=== PATIENT | female | born 1955 | race Two or more races ===

== ENCOUNTER 2021-10-18 12:10 | Outpatient (REF) | payer SELFPAY ==
[2021-10-18 12:46] LABS: MANUAL DIFF FLAG NO
[2021-10-18 13:02] LABS: Basophils Absolute Auto 0.1 X10*3/uL (0.0-0.2); Basophils Percent Auto 0.4 % (0-2); Eosinophils Absolute Auto 0.1 X10*3/uL (0.0-0.4); Eosinophils Percent Auto 0.4 % (0-4); Hematocrit 41.1 % (37.0-47.0); Hemoglobin 13.7 g/dl (12.0-16.0); Imm Gran Abs Auto 0.05 X10*3/uL (0.00-0.03); Imm Gran Pct Auto 0.4 % (0.0-0.4); Lymphocytes Absolute Auto 1.4 X10*3/uL (1.2-4.9); Lymphocytes Percent Auto 10.5 % (20-40); Mean Corpuscular HGB Conc 33.3 g/dl (31.0-35.0); Mean Corpuscular Hemoglobin 29.8 pg (27.0-33.0); Mean Corpuscular Volume 89.5 fL (80.0-98.0); Mean Platelet Volume 8.8 fL (9.4-12.3); Monocytes Absolute Auto 1.3 X10*3/uL (0.1-1.2); Monocytes Percent Auto 9.6 % (2-11); Neutrophils Absolute Auto 10.7 x10*3/uL (2.0-8.3); Neutrophils Percent Auto 78.7 % (45-73); Platelet Count 386 X10*3/uL (160-400); Red Blood Count 4.59 X10*6/uL (4.20-5.50); Red Cell Distribution Width 13.8 % (11.0-16.0); White Blood Count 13.6 X10*3/uL (4.8-10.8)
[2021-10-18 13:29] LABS: C Reactive Protein 10.43 mg/dL (< or = 0.50)
[2021-10-18 13:49] LABS: Erythrocyte Sedimentation Rate 32 MM/HR (0-20)
== END 2021-10-18 12:11 | disposition home or self-care (01) ==
LOC: HO.LAB 12:10
PROVIDERS: Visit Provider Ophthalmology
DX: M31.6 Other giant cell arteritis (principal); H46.9 Unspecified optic neuritis
CPT/HCPCS: 36415; 85025; 85652; 86140

== ENCOUNTER 2021-10-20 14:42 | Emergency (ER) | payer OTHER, SELFPAY ==
--- NOTE | ~2021-10-20 | XR_ITS ---
EXAMINATION: XR CHEST CLINICAL INFORMATION: Cough COMPARISON: None TECHNIQUE: Frontal view of the chest was obtained. FINDINGS: The lungs are clear. No airspace consolidation, pleural effusion, or pneumothorax. The cardiomediastinal silhouette is within normal limits. No acute osseous injury. XR/XR chest 1V IMPRESSION: No acute pulmonary process.
[2021-10-20 15:15] VITALS: BP 116/69; PULSE 98; RESP 16; TEMP 36.6; O2SAT 98; BMI 23.2
[2021-10-20 22:18] VITALS: BP 114/75; PULSE 85; RESP 18; TEMP 36.5; O2SAT 100
--- NOTE | 2021-10-20 22:20 | ED.GENADULT ---
HPI - General Adult General Chief complaint: Nausea/Vomiting/Diarrhea Stated complaint: fever body aches vomiting headache diarrhea Time Seen by Provider: 10/20/21 22:20 Source: patient Mode of arrival: ambulatory Limitations: no limitations History of Present Illness HPI narrative: pt with History of hypothyroidism chronic back pain with recent history of COVID 2 weeks ago already vaccinated against COVID. Patient was sick for 4 5 days to weeks ago with COVID improved now again for last 5 days patient has been having dry cough body aches low-grade fever and chills nauseated diarrhea other family member also sick at the same time. No shortness of breath no urinary complaints unable to drink fluids or eat feels tired Related Data Previous Rx's Medication Instructions Recorded benzonatate 200 mg capsule 200 mg PO TID PRN cough #20 caps 10/20/21 cefuroxime axetil 500 mg tablet 500 mg PO BID 7 days #14 tabs 10/20/21 ondansetron 4 mg disintegrating 4 mg PO Q6-8H PRN nausea and 10/20/21 tablet vomiting #7 tabs Allergies Allergy/AdvReac Type Severity Reaction Status Date / Time morphine AdvReac Itching Verified 10/20/21 23:31 Review of Systems Review of Systems: Yes all other systems are reviewed and are negative PMFSH Social History Social History Advance Directives: No Advance Directives Information Provided: No Physical Exam ED Vital Signs: Vital Signs - 24 hr 10/20/21 15:15 10/20/21 22:18 Temperature 97.8 F 97.7 F Pulse Rate 98 85 Respiratory Rate 16 18 Blood Pressure 116/69 114/75 Pulse Oximetry 98 100 Oxygen Delivery Method Room Air Room Air BMI result Body Mass Index 23.2 Appearance: Alert. Oriented X3. Looks sick tired Eyes: No pallor or icterus ENT: Pharynx normal. Oral Mucosa moist Neck: Normal inspection. Neck supple. CVS: Normal heart rate and rhythm. Pulses normal. Respiratory: No respiratory distress. Equal air entry bilateral, no wheezing/rales/rhonchi Abdomen: Soft and nontender. Bowel sounds are present, no mass palpable, no CVA tenderness Skin: Skin warm and dry. Normal skin color. Normal skin turgor. Extremities: No lower extremity edema. No calf tenderness Neuro: Oriented X 3. No motor deficit. Medical Decision Making MDM Narrative Medical decision making narrative: Patient with symptoms of bronchitis COVID negative chest x-ray lab stable will discharge patient home on Ceftin and Tessalon Perles Lab Data Lab results reviewed: Yes I reviewed the patient's lab results. Result diagrams: 10/20/21 22:52 10/20/21 22:52 Labs: Lab Results 10/20/21 10/20/21 10/20/21 Range/Units 22:45 22:52 22:52 WBC 8.6 (4.8-10.8) X10*3/uL RBC 4.50 (4.20-5.50) X10*6/uL Hgb 13.2 (12.0-16.0) g/dl Hct 39.3 (37.0-47.0) % MCV 87.3 (80.0-98.0) fL MCH 29.3 (27.0-33.0) pg MCHC 33.6 (31.0-35.0) g/dl RDW 13.4 (11.0-16.0) % Plt Count 346 (160-400) X10*3/uL MPV 8.8 L (9.4-12.3) fL Immature Gran % (Auto) 0.6 H (0.0-0.4) % Neut % (Auto) 90.3 H (45-73) % Lymph % (Auto) 4.9 L (20-40) % [place] % (Auto) 4.1 (2-11) % Eos % (Auto) 0.0 (0-4) % Baso % (Auto) 0.1 (0-2) % Lymph # (Auto) 0.4 L (1.2-4.9) X10*3/uL [place] # (Auto) 0.4 (0.1-1.2) X10*3/uL Eos # (Auto) 0.0 (0.0-0.4) X10*3/uL Baso # (Auto) 0.0 (0.0-0.2) X10*3/uL Abs Immat Gran (auto) 0.05 H (0.00-0.03) X10*3/uL Absolute Neuts (auto) 7.8 (2.0-8.3) x10*3/uL Absolute Nucleated RBC 0.000 (0.0-0.012) X10*3/uL Nucleated RBC % (auto) 0.0 (0.0-0.2) /100WBC Smear Tech's Comments VERIFIED Sodium 137 (135-145) mmol/L Potassium 3.7 (3.3-5.1) mmol/L Chloride 99 (96-108) mmol/L Carbon Dioxide 23 (22-29) mmol/L Anion Gap 19 (12-20) BUN 15 (9-16) mg/dL Creatinine 0.78 (0.5-1.4) mg/dL Estim Creat Clear Calc 58.7 Estimated GFR > 60 Random Glucose 234 H (60-115) mg/dL Calcium 9.1 (8.4-10.2) mg/dL Total Bilirubin 0.6 (0.0-1.0) mg/dL AST 21 (5-31) U/L ALT 17 (0-31) U/L Alkaline Phosphatase 85 (39-117) U/L Total Protein 8.2 H (6.5-8.0) g/dL Albumin 4.4 (3.5-5.0) g/dL COVID-19 ([facility]) Negative (Negative) COVID-19 Clin Com See Note Discharge Plan Discharge Clinical Impression: Acute bronchitis Patient Disposition: Home, Self-Care Instructions: Acute Bronchitis (ED) Additional Instructions: Drink plenty of fluids Take antibiotic as prescribed Cough drops as prescribed Take Medicine for nausea as prescribed Follow with PCP if not better Your COVID test is negative Prescriptions: New cefuroxime axetil 500 mg tablet 500 mg PO BID 7 Days Qty: 14 0RF benzonatate 200 mg capsule 200 mg PO TID PRN (Reason: cough) Qty: 20 0RF ondansetron 4 mg tablet,disintegrating 4 mg PO Q6-8H PRN (Reason: nausea and vomiting) Qty: 7 0RF Interventions: ED Discharge Assessment Last Done: 10/21/21 00:28 Discharge Date/Time: 10/21/21 00:41
[2021-10-20 23:04] LABS: COVID-19 Test Negative (Negative); IDNOW Serial# 16C4AD1C
[2021-10-20 23:07] LABS: Basophils Percent Auto 0.1 % (0-2); Hematocrit 39.3 % (37.0-47.0); Hemoglobin 13.2 g/dl (12.0-16.0); Imm Gran Abs Auto 0.05 X10*3/uL (0.00-0.03); Imm Gran Pct Auto 0.6 % (0.0-0.4); Lymphocytes Absolute Auto 0.4 X10*3/uL (1.2-4.9); Lymphocytes Percent Auto 4.9 % (20-40); MANUAL DIFF FLAG SCAN; Mean Corpuscular HGB Conc 33.6 g/dl (31.0-35.0); Mean Corpuscular Hemoglobin 29.3 pg (27.0-33.0); Mean Corpuscular Volume 87.3 fL (80.0-98.0); Mean Platelet Volume 8.8 fL (9.4-12.3); Monocytes Absolute Auto 0.4 X10*3/uL (0.1-1.2); Monocytes Percent Auto 4.1 % (2-11); Neutrophils Absolute Auto 7.8 x10*3/uL (2.0-8.3); Neutrophils Percent Auto 90.3 % (45-73); Platelet Count 346 X10*3/uL (160-400); Red Cell Distribution Width 13.4 % (11.0-16.0); SCAN SMEAR FLAG 1; White Blood Count 8.6 X10*3/uL (4.8-10.8)
[2021-10-20 23:23] LABS: Alanine Aminotransferase 17 U/L (0-31); Albumin Level 4.4 g/dL (3.5-5.0); Alkaline Phosphatase 85 U/L (39-117); Anion Gap 19 (12-20); Aspartate Amino Transferase 21 U/L (5-31); Bilirubin Total 0.6 mg/dL (0.0-1.0); Blood Urea Nitrogen 15 mg/dL (9-16); Calcium 9.1 mg/dL (8.4-10.2); Carbon Dioxide 23 mmol/L (22-29); Chloride 99 mmol/L (96-108); Creatinine Clr Calc Pharmacy 58.7; Estimated Glomerular Filt Rate > 60; Glucose Random 234 mg/dL (60-115); Potassium 3.7 mmol/L (3.3-5.1); Sodium 137 mmol/L (135-145); Total Protein 8.2 g/dL (6.5-8.0)
[2021-10-20 23:24] LABS: SLIDE REVIEW VERIFIED
[2021-10-20] MEDS: 0.9 % Sodium Chloride 1,000 ML 999 ML IV (23:26)
[2021-10-20] MEDS: ondansetron HCL 4 MG/2 ML VIAL IVPUSH (23:26)
[2021-10-21] MEDS: Benzonatate 100 MG CAPSULE 200 MG PO (00:26)
== END 2021-10-21 00:41 | disposition home or self-care (01) ==
PROVIDERS: Emergency Provider Internal Medicine
DX: J20.9 Acute bronchitis, unspecified (principal); Z20.822 Contact with and (suspected) exposure to COVID-19
CPT/HCPCS: 71045; 80053; 85025; 87635; 96361; 96374; 99284; J2405

== ENCOUNTER 2021-11-08 10:31 | Emergency (ER) | payer OTHER, SELFPAY ==
--- NOTE | ~2021-11-08 | XR_ITS ---
EXAMINATION: XR CHEST CLINICAL INFORMATION: Shortness of breath COMPARISON: Chest radiograph 10/20/2021 TECHNIQUE: Frontal view of the chest was obtained. FINDINGS: No lobar or segmental airspace consolidation, vascular congestion, or effusion. The costophrenic sulci are clear. The heart is normal in size. The hilar and mediastinal contours are normal. No pneumothorax or pleural reaction. No acute bony abnormality. XR/XR chest 1V IMPRESSION: No acute intrathoracic disease.
--- NOTE | ~2021-11-08 | CT_ITS ---
EXAMINATION: CT ANGIOGRAM OF THE CHEST WITH AND WITHOUT CONTRAST (CT PULMONARY ANGIOGRAM FOR PE) CLINICAL INFORMATION: Reason for Exam Pleuritic pain, elevated D-dimer rule out PE COMPARISON: Previous chest x-ray from earlier the same day TECHNIQUE: Prior to contrast administration, noncontrast localization images were obtained. Subsequently, multidetector volumetric imaging was performed from the thoracic inlet to below the diaphragms following the administration of 65 mL Omnipaque 350 intravenous contrast. No contrast reaction reported Sagittal, coronal, and MIP oblique sagittal reformatted images were obtained on the CT workstation, uploaded to PACS, and reviewed. This CT examination was performed using dose optimization techniques as appropriate, variously including the following: *Automated exposure control *Adjustment of mA and/or kV according to patient size (this includes techniques or standardized protocols for targeted exams where dose is matched to indication/reason for exam; i.e. extremities or head) *Use of iterative reconstruction technique Total exam dose-length product 198 mGy-cm FINDINGS: QUALITY OF STUDY/CONTRAST BOLUS: Satisfactory. PULMONARY ARTERIES: No central or segmental pulmonary emboli. THORACIC AORTA: No aneurysm or dissection. LUNG: No focal consolidation, nodules or masses. PLEURA: No pleural effusion or pneumothorax. MEDIASTINUM: Normal heart size. No pericardial effusion. No hilar or mediastinal lymphadenopathy. No evidence of septal bowing or right heart strain. Replaced right subclavian artery. Normal caliber thoracic aorta. CHEST WALL/AXILLA: No axillary or internal mammary lymphadenopathy. OSSEOUS STRUCTURES: No acute or suspicious osseous abnormality. There are degenerative changes of the spine. UPPER ABDOMEN: Unremarkable. No reflux of contrast into the hepatic veins to suggest elevated right heart pressures. CT/CT angio chest PE protocol IMPRESSION: No evidence of pulmonary embolism. VTE: negative
[2021-11-08 11:42] VITALS: BP 126/76; PULSE 104; RESP 18; TEMP 36.8; O2SAT 100; BMI 25.7
[2021-11-08] MEDS: Acetaminophen 325 MG TABLET 650 MG PO (11:48)
--- NOTE | 2021-11-08 13:30 | ED_ITS ---
HPI - General Adult General Chief complaint: General Medical Stated complaint: rib pain in both sides Time Seen by Provider: 11/08/21 13:30 History of Present Illness HPI narrative: Patient complains in both ribs worse with deep breath it is both sides along the ribcage no central pain, pain is continuous, not related to exertion there is no diaphoresis no shortness of breath no vomiting not related to exertion, no palpitations no fainting no feeling faint She denies any leg pain no calf pain She did recently have a COVID infection but is no longer coughing no longer having any fever, is eating and drinking normally no vomiting Related Data Previous Rx's Medication Instructions Recorded benzonatate 200 mg capsule 200 mg PO TID PRN cough #20 caps 10/20/21 cefuroxime axetil 500 mg tablet 500 mg PO BID 7 days #14 tabs 10/20/21 ondansetron 4 mg disintegrating 4 mg PO Q6-8H PRN nausea and 10/20/21 tablet vomiting #7 tabs acetaminophen 500 mg tablet 1,000 mg PO QID PRN pain #30 tabs 11/08/21 ibuprofen 600 mg tablet 600 mg PO Q6H PRN pain #20 tabs 11/08/21 oxycodone 5 mg tablet 5 mg PO Q6H PRN pain #14 tabs 11/08/21 Allergies Allergy/AdvReac Type Severity Reaction Status Date / Time morphine AdvReac Itching Verified 10/20/21 23:31 Review of Systems Review of Systems: Negatives no fever no chills no dizziness weakness no fainting no feeling faint no headache no neck pain no difficulty breathing or swallowing no exertional symptoms no palpitations no sweating no relation to exertion no abdominal pain no nausea or vomiting no leg pain no leg swelling no numbness no weakness no rash Yes all other systems are reviewed and are negative PMFSH Past Medical History Source: nursing notes reviewed Social History Social History Advance Directives: No Advance Directives Information Provided: No Physical Exam ED Vital Signs: Vital Signs - 24 hr 11/08/21 11:42 11/08/21 14:40 Temperature 98.3 F Pulse Rate 104 H 79 Respiratory Rate 18 15 Blood Pressure 126/76 101/54 L Pulse Oximetry 100 96 Oxygen Delivery Method Room Air Room Air BMI result Body Mass Index 25.7 General appearance is no acute distress Eyes anicteric no pallor Number pharynx mucous membranes are moist no redness swelling or exudate no impa irment of breathing or swallowing, voice is normal Neck is supple Chest is clear to auscultation bilateral full symmetric equal breath sounds Pain in the chest is easily reproduced with movement and deep breath Heart no murmur Abdomen soft nontender Extremities full range of motion x4, no edema no calf tenderness or swelling Skin no rash Neuro no focal motor sensory deficits, gait and balance are normal and expression and comprehension are normal Course Course Course Narrative: EKG was a normal sinus rhythm with a rate of 78, intervals were normal, QTC normal, no acute ischemic change, no acute ST changes At 1 troponin was done for symptoms that have been going on for several days and it was negative D-dimer was positive so CTA was done CTA did not reveal any pneumonia no blood clot no PE A white count of 17 was noted but in the absence of fever, no evidence of sepsis no complaint except the rib pain this is very unlikely to be sepsis No other acute lab abnormality Patient remains stable and improved after pain medication and departed the ER comfortable with no shortness of breath and feeling somewhat improved Medical Decision Making Lab Data Lab results reviewed: Yes I reviewed the patient's lab results. Result diagrams: 11/08/21 14:07 11/08/21 14:07 Labs: Lab Results 11/08/21 11/08/21 11/08/21 Range/Units 14:07 14:07 14:07 WBC 17.7 H (4.8-10.8) X10*3/uL RBC 3.94 L (4.20-5.50) X10*6/uL Hgb 11.6 L (12.0-16.0) g/dl Hct 34.6 L (37.0-47.0) % MCV 87.8 (80.0-98.0) fL MCH 29.4 (27.0-33.0) pg MCHC 33.5 (31.0-35.0) g/dl RDW 14.6 (11.0-16.0) % Plt Count 389 (160-400) X10*3/uL MPV 7.8 L (9.4-12.3) fL Immature Gran % (Auto) 1.0 H (0.0-0.4) % Neut % (Auto) 93.3 H (45-73) % Lymph % (Auto) 2.4 L (20-40) % [place] % (Auto) 3.2 (2-11) % Eos % (Auto) 0.0 (0-4) % Baso % (Auto) 0.1 (0-2) % Lymph # (Auto) 0.4 L (1.2-4.9) X10*3/uL [place] # (Auto) 0.6 (0.1-1.2) X10*3/uL Eos # (Auto) 0.0 (0.0-0.4) X10*3/uL Baso # (Auto) 0.0 (0.0-0.2) X10*3/uL Abs Immat Gran (auto) 0.17 H (0.00-0.03) X10*3/uL Absolute Neuts (auto) 16.5 H (2.0-8.3) x10*3/uL Absolute Nucleated RBC 0.000 (0.0-0.012) X10*3/uL Nucleated RBC % (auto) 0.0 (0.0-0.2) /100WBC Smear Tech's Comments VERIFIED PT 10.4 (10.0-13.1) SEC INR 0.9 (0.9-1.1) D-Dimer High Sensitivty 617 NG/ML Sodium 139 (135-145) mmol/L Potassium 4.0 (3.3-5.1) mmol/L Chloride 101 (96-108) mmol/L Carbon Dioxide 28 (22-29) mmol/L Anion Gap 14 (12-20) BUN 22 H (9-16) mg/dL Creatinine 0.71 (0.5-1.4) mg/dL Estim Creat Clear Calc 68.4 Estimated GFR > 60 Random Glucose 170 H (60-115) mg/dL Calcium 8.8 (8.4-10.2) mg/dL Troponin I High Sens (<3.5-17.0) ng/L COVID-19 ([facility]) (Negative) COVID-19 Clin Com 11/08/21 11/08/21 Range/Units 14:07 14:40 WBC (4.8-10.8) X10*3/uL RBC (4.20-5.50) X10*6/uL Hgb (12.0-16.0) g/dl Hct (37.0-47.0) % MCV (80.0-98.0) fL MCH (27.0-33.0) pg MCHC (31.0-35.0) g/dl RDW (11.0-16.0) % Plt Count (160-400) X10*3/uL MPV (9.4-12.3) fL Immature Gran % (Auto) (0.0-0.4) % Neut % (Auto) (45-73) % Lymph % (Auto) (20-40) % [place] % (Auto) (2-11) % Eos % (Auto) (0-4) % Baso % (Auto) (0-2) % Lymph # (Auto) (1.2-4.9) X10*3/uL [place] # (Auto) (0.1-1.2) X10*3/uL Eos # (Auto) (0.0-0.4) X10*3/uL Baso # (Auto) (0.0-0.2) X10*3/uL Abs Immat Gran (auto) (0.00-0.03) X10*3/uL Absolute Neuts (auto) (2.0-8.3) x10*3/uL Absolute Nucleated RBC (0.0-0.012) X10*3/uL Nucleated RBC % (auto) (0.0-0.2) /100WBC Smear Tech's Comments PT (10.0-13.1) SEC INR (0.9-1.1) D-Dimer High Sensitivty NG/ML Sodium (135-145) mmol/L Potassium (3.3-5.1) mmol/L Chloride (96-108) mmol/L Carbon Dioxide (22-29) mmol/L Anion Gap (12-20) BUN (9-16) mg/dL Creatinine (0.5-1.4) mg/dL Estim Creat Clear Calc Estimated GFR Random Glucose (60-115) mg/dL Calcium (8.4-10.2) mg/dL Troponin I High Sens 8.2 (<3.5-17.0) ng/L COVID-19 ([facility]) Negative (Negative) COVID-19 Clin Com See Note Discharge Plan Discharge Clinical Impression: Costochondritis Patient Disposition: Home, Self-Care Additional Instructions: Our workup today did not reveal any dangerous sign for your pain EKG and labs were okay CT scan to rule out blood clot or pneumonia not seen on x-ray was normal no sign of any dangerous condition This is likely inflammation of cartilage in her ribs so we are using anti-inflammatory ibuprofen If pain is severe you can use oxycodone Follow with your doctor if pain continues Return to ER any time for any worse or change pain, difficulty breathing, any worse condition or any concerns Prescriptions: New acetaminophen 500 mg tablet 1,000 mg PO QID PRN (Reason: pain) Qty: 30 0RF oxycodone 5 mg tablet 5 mg PO Q6H PRN (Reason: pain) Qty: 14 0RF Rx Instructions: Partial Fill upon patient request. ibuprofen 600 mg tablet 600 mg PO Q6H PRN (Reason: pain) Qty: 20 0RF No Action cefuroxime axetil 500 mg tablet 500 mg PO BID 7 Days Qty: 14 0RF benzonatate 200 mg capsule 200 mg PO TID PRN (Reason: cough) Qty: 20 0RF ondansetron 4 mg tablet,disintegrating 4 mg PO Q6-8H PRN (Reason: nausea and vomiting) Qty: 7 0RF
--- NOTE | 2021-11-08 13:47 | ECG_ITS ---
Test Reason : pain Blood Pressure : / mmHG Vent. Rate : 078 BPM Atrial Rate : 078 BPM P-R Int : 164 ms QRS Dur : 088 ms QT Int : 358 ms P-R-T Axes : 067 012 031 degrees QTc Int : 408 ms Normal sinus rhythm with sinus arrhythmia Normal ECG No previous ECGs available Referred By: Cb Wilkerson Electronically Signed By:BRUNA SALDIVAR
[2021-11-08 14:15] LABS: Basophils Percent Auto 0.1 % (0-2); Hematocrit 34.6 % (37.0-47.0); Hemoglobin 11.6 g/dl (12.0-16.0); Imm Gran Abs Auto 0.17 X10*3/uL (0.00-0.03); Lymphocytes Absolute Auto 0.4 X10*3/uL (1.2-4.9); Lymphocytes Percent Auto 2.4 % (20-40); MANUAL DIFF FLAG SCAN; Mean Corpuscular HGB Conc 33.5 g/dl (31.0-35.0); Mean Corpuscular Hemoglobin 29.4 pg (27.0-33.0); Mean Corpuscular Volume 87.8 fL (80.0-98.0); Mean Platelet Volume 7.8 fL (9.4-12.3); Monocytes Absolute Auto 0.6 X10*3/uL (0.1-1.2); Monocytes Percent Auto 3.2 % (2-11); Neutrophils Absolute Auto 16.5 x10*3/uL (2.0-8.3); Neutrophils Percent Auto 93.3 % (45-73); Platelet Count 389 X10*3/uL (160-400); Red Blood Count 3.94 X10*6/uL (4.20-5.50); Red Cell Distribution Width 14.6 % (11.0-16.0); SCAN SMEAR FLAG 1; White Blood Count 17.7 X10*3/uL (4.8-10.8)
[2021-11-08 14:18] LABS: INTERNATIONAL NORM RATIO 0.9 (0.9-1.1); Prothrombin Time 10.4 SEC (10.0-13.1)
[2021-11-08 14:20] LABS: D Dimer High Sensitivity 617 NG/ML
[2021-11-08 14:32] LABS: Anion Gap 14 (12-20); Blood Urea Nitrogen 22 mg/dL (9-16); Calcium 8.8 mg/dL (8.4-10.2); Carbon Dioxide 28 mmol/L (22-29); Chloride 101 mmol/L (96-108); Creatinine Clr Calc Pharmacy 68.4; Estimated Glomerular Filt Rate > 60; Glucose Random 170 mg/dL (60-115); Sodium 139 mmol/L (135-145)
[2021-11-08 14:35] LABS: Troponin-I High Sensitivity 8.2 ng/L (<3.5-17.0)
[2021-11-08 14:39] LABS: SLIDE REVIEW VERIFIED
[2021-11-08 14:40] VITALS: BP 101/54; PULSE 79; RESP 15; O2SAT 96
[2021-11-08 15:15] LABS: COVID-19 Test Negative (Negative); IDNOW Serial# 16C4AD1C
[2021-11-08] MEDS: iohexoL 350 MG/ML 100 ML INFUS..BTL IV (15:41)
[2021-11-08] MEDS: Ibuprofen 600 MG TABLET PO (17:10)
[2021-11-08] MEDS: oxyCODONE HCl Immed Release 5 MG TABLET PO (17:10)
== END 2021-11-08 17:18 | disposition home or self-care (01) ==
PROVIDERS: Physician Assistant Medical; Emergency Provider Emergency Medicine Emergency Medical Services
DX: M94.0 Chondrocostal junction syndrome [Tietze] (principal); Z20.822 Contact with and (suspected) exposure to COVID-19
CPT/HCPCS: 36415; 71045; 71275; 80048; 84484; 85025; 85379; 85610; 87635; 93005; 99284; Q9967

== ENCOUNTER 2021-11-12 14:49 | Emergency (ER) | payer OTHER, SELFPAY ==
--- NOTE | ~2021-11-12 | CT_ITS ---
EXAMINATION: CT ABDOMEN AND PELVIS WITH CONTRAST CLINICAL INFORMATION: Epigastric pain, vomiting. COMPARISON: None TECHNIQUE: Multidetector volumetric images were obtained from the superior aspect of the liver through the pubic symphysis following administration 85 mL of Omnipaque 350 intravenous contrast. Sagittal and coronal reformatted images were obtained on the technologist's workstation. Oral contrast: No This CT examination was performed using dose optimization techniques as appropriate, variously including the following: *Automated exposure control *Adjustment of mA and/or kV according to patient size (this includes techniques or standardized protocols for targeted exams where dose is matched to indication/reason for exam; i.e. extremities or head) *Use of iterative reconstruction technique DLP: 477 mGy-cm FINDINGS: LUNG BASES: There is dependent bibasilar atelectasis. The heart size is normal. LIVER, GALLBLADDER, AND BILIARY TREE: The liver is normal in size, shape, and attenuation. No focal hepatic lesion or biliary ductal dilatation is present. The gallbladder is unremarkable with no evidence of radiopaque gallstones, gallbladder wall thickening, or obvious pericholecystic inflammatory changes. PANCREAS: Unremarkable. SPLEEN: Unremarkable. ADRENAL GLANDS: Unremarkable. KIDNEYS AND URETERS: The kidneys are normal in size, shape, and attenuation. No hydronephrosis, hydroureter, or calculi seen. No perinephric stranding. With a hypodense 1.1 cm lesion lower pole left kidney and midpole right kidney probable cyst. BLADDER: Unremarkable. GASTROINTESTINAL TRACT: There is moderate amount of stool in the right colon with stool and gas in the rest the colon. The small bowel loops are normal caliber. Appendix is not visualized. The stomach is nondistended and appears unremarkable. No free air or free fluid seen. ABDOMINAL WALL: No significant hernia is appreciated. LYMPH NODES: Normal. VASCULAR: Unremarkable. PELVIC VISCERA: The uterus is anteverted with small calcified fibroid in the fundus. No free fluid. No abnormal pelvic or inguinal lymph nodes. OSSEOUS STRUCTURES: There are bilateral pedicular screws L4, L5 and S1 vertebra with intervening L4-L5 and L5/S1 disc prosthesis for fusion. Rest the visualized lumbosacral spine appears unremarkable. CT/CT abdomen pelvis w IV con IMPRESSION: Moderate constipation without obstruction. Likely bilateral renal cysts without radiopaque renal calculi or hydronephrosis. Lower lumbar spine fusion. Fleischner guidelines were followed.
--- NOTE | ~2021-11-12 | US_ITS ---
EXAMINATION: US ABDOMEN LIMITED CLINICAL INFORMATION: Right upper quadrant pain. COMPARISON: No pertinent priors. TECHNIQUE: Real-time imaging of the right upper quadrant abdominal viscera. FINDINGS: PANCREAS: Normal. LIVER: Normal. The liver is normal in size. The liver contour is normal. Parenchymal echogenicity is normal. No focal hepatic lesion. There is no intrahepatic biliary duct dilatation seen. GALLBLADDER: Normal. The gallbladder is physiologically distended without evidence of stones, sludge, polyps, wall thickening or pericholecystic fluid. COMMON BILE DUCT: Borderline dilated measuring up to 0.7 cm. FREE FLUID: None. US/US abdomen limited IMPRESSION: Borderline dilatation of the common bile duct. If choledocholithiasis is suspected, correlation with MRCP could be obtained. Normal sonographic appearance of the gallbladder and liver.
[2021-11-12 15:17] VITALS: BP 148/63; PULSE 70; RESP 20; TEMP 37.2; O2SAT 98; BMI 24.3
[2021-11-12 18:35] LABS: MANUAL DIFF FLAG NO
[2021-11-12 18:40] LABS: Basophils Percent Auto 0.2 % (0-2); Eosinophils Percent Auto 0.1 % (0-4); Hematocrit 36.6 % (37.0-47.0); Hemoglobin 12.1 g/dl (12.0-16.0); Imm Gran Abs Auto 0.17 X10*3/uL (0.00-0.03); Imm Gran Pct Auto 0.9 % (0.0-0.4); Lymphocytes Absolute Auto 0.8 X10*3/uL (1.2-4.9); Mean Corpuscular HGB Conc 33.1 g/dl (31.0-35.0); Mean Corpuscular Hemoglobin 28.9 pg (27.0-33.0); Mean Corpuscular Volume 87.4 fL (80.0-98.0); Mean Platelet Volume 7.9 fL (9.4-12.3); Monocytes Percent Auto 5.3 % (2-11); Neutrophils Percent Auto 89.5 % (45-73); Platelet Count 405 X10*3/uL (160-400); Red Blood Count 4.19 X10*6/uL (4.20-5.50); Red Cell Distribution Width 14.1 % (11.0-16.0)
[2021-11-12 18:53] LABS: Amylase 60 U/L (28-100); Ethanol < 10 mg/dL
[2021-11-12 18:56] LABS: Alanine Aminotransferase 27 U/L (0-31); Alkaline Phosphatase 106 U/L (39-117); Anion Gap 19 (12-20); Aspartate Amino Transferase 13 U/L (5-31); Bilirubin Total 0.8 mg/dL (0.0-1.0); Blood Urea Nitrogen 23 mg/dL (9-16); Calcium 9.2 mg/dL (8.4-10.2); Carbon Dioxide 28 mmol/L (22-29); Chloride 98 mmol/L (96-108); Cholesterol 178 mg/dL; Creatinine Clr Calc Pharmacy 61.8; Estimated Glomerular Filt Rate > 60; Glucose Random 141 mg/dL (60-115); HDL Cholesterol 52 mg/dL; LDL Cholesterol Calculated 97 mg/dl; Lactate Dehydrogenase 215 U/L (122-220); Lipase 6 U/L (8-78); Potassium 3.6 mmol/L (3.3-5.1); Sodium 141 mmol/L (135-145); Total Protein 7.6 g/dL (6.5-8.0); Triglycerides 148 mg/dL
--- NOTE | 2021-11-12 21:11 | ED_ITS ---
HPI - Nausea/Vomiting/Diarrhea General Chief complaint: Nausea/Vomiting/Diarrhea Stated complaint: vomiting x3 days Time Seen by Provider: 11/12/21 15:24 Source: patient and old records reviewed Mode of arrival: ambulatory Limitations: no limitations History of Present Illness HPI Narrative: 66 yo female with PMH of chronic back pain and hypothyroidism s/p COVID back in September just seen here on 11/08 for chest pain had CTA at that time - no acute findings. Was on prednisone 10/31 (protein build up in eye has been on it daily) which has been increasing her WBC counts. She went to [facility] yesteray and was diagnosed with pancreatitis per CT scan is what she was told - sent home with liquid diet. MD elicited complaint: nausea, vomiting and abdominal pain Onset (ago): day(s) (3) Description of vomiting: food contents, watery and bilious Associated nausea: Yes Associated abdominal pain: Yes Location of pain: epigastric Radiation: other (right back) Pain consistency: constant Severity: severe Quality: stabbing Exacerbating factors: eating and vomiting Relieving factors: none Associated symptoms: loss of appetite, malaise and nausea/vomiting Related Data Previous Rx's Medication Instructions Recorded benzonatate 200 mg capsule 200 mg PO TID PRN cough #20 caps 10/20/21 cefuroxime axetil 500 mg tablet 500 mg PO BID 7 days #14 tabs 10/20/21 ondansetron 4 mg disintegrating 4 mg PO Q6-8H PRN nausea and 10/20/21 tablet vomiting #7 tabs acetaminophen 500 mg tablet 1,000 mg PO QID PRN pain #30 tabs 11/08/21 ibuprofen 600 mg tablet 600 mg PO Q6H PRN pain #20 tabs 11/08/21 oxycodone 5 mg tablet 5 mg PO Q6H PRN pain #14 tabs 11/08/21 docusate sodium 100 mg capsule 100 mg PO BID PRN constipation #30 11/13/21 (Colace) caps lactulose 10 gram/15 mL oral 10 g (15 mL) PO DAILY PRN 11/13/21 solution constipation #237 mL omeprazole 20 mg capsule,delayed 20 mg PO DAILY #14 caps 11/13/21 release ondansetron 4 mg disintegrating 4 mg PO Q8H PRN nausea and 11/13/21 tablet vomiting #20 tabs promethazine 25 mg rectal 25 mg ID Q6H PRN nausea and 11/13/21 suppository vomiting #12 ea sennosides 8.6 mg capsule (senna) 8.6 mg PO BEDTIME PRN constipation 11/13/21 #30 caps Allergies Allergy/AdvReac Type Severity Reaction Status Date / Time Sulfa (Sulfonamide Allergy Unknown Verified 11/12/21 15:17 Antibiotics) morphine AdvReac Itching Verified 10/20/21 23:31 oxycodone AdvReac Vomiting Verified 11/12/21 15:17 Review of Systems Review of Systems: Constitutional : No Weight loss, No Fever, No Chills ENT/Mouth : No sore throat, No Rhinorrhea Eyes: No Swelling, No Redness Cardiovascular : No Chest Pain, No SOB, NoEdema Respiratory : No Cough, No Sputum, No Wheezing Gastrointestinal : Positive Nausea, Positive Vomiting, no Diarrhea, positive abdominal Pain, No Hematochezia, No Melena Genitourinary : No Dysuria, No Urinary Frequency, No Hematuria, No Urgency Musculoskeletal : No joint pain, No Myalgias, No Joint Swelling Skin : No Skin Lesions, No rash Neuro : No Weakness, No Numbness, No Dizziness, No Headache Psych : No Anxiety/Panic, No Depression Heme/Lymph: No Bruising, No Lymphadenopathy Endocrine : No Polyuria, No Polydipsia All other systems reviewed and are negative. Gastrointestinal: Gastrointestinal: Reports nausea PMFSH Past Medical History Attestation statement: The following information was validated with the patient. Medical History Chronic back pain Hypothyroidism Social History Social History (Updated 11/12/21 @ 21:23 by Jennyfer Cohen DO) Alcohol intake: never Patient Tobacco Use Status: Never used Tobacco Use of substances other than those prescribed or required for medical reasons: No Advance Directives: No Advance Directives Information Provided: No Physical Exam Vital Signs: Vital Signs: Last Vital Signs Temp 98.9 F 11/12/21 15:17 Pulse 58 11/12/21 23:17 Resp 16 11/12/21 23:17 BP 123/57 L 11/12/21 23:17 Pulse Ox 97 11/12/21 23:17 O2 Del Method 11/12/21 23:17 BMI result Body Mass Index 24.3 Appearance: Alert. Oriented X3. No acute distress. Eyes: Pupils equal, round and reactive to light. ENT: Pharynx normal. Neck: Normal inspection. Neck supple. CVS: Normal heart rate and rhythm. Pulses normal. Respiratory: No respiratory distress. Breath sounds normal. Abdomen: Soft and moderate ttp in RUQ with + ocampo's sign Skin: Skin warm and dry. pale skin color. Normal skin turgor. Extremities: No lower extremity edema. No calf ttp Neuro: Oriented X 3. No motor deficit. No sensory deficit. Course Course Course Narrative: feels better US pending will order UA, [facility] records still pending - CT scan negative other than constipation no inflammatory changes around pancreas lipase 691 sent home with clear liquids will obtain CT scan of abdomen WBC count 19 at [facility] as well - seen 11/11 US shows dilated CBD - will order CT scan, lactic and cultures ordered unsure if patient has any biliary pathology given normal LFTs and bili, lipase is also down from [address] scan no acute findings - doubt choledocholithiasis has no gallstones normal LFTs and bili, normal lipase pending UA. MDM - Nausea/Vomiting/Diarrhea MDM Narrative Medical decision making narrative: 66 yo female with chronic back pain, hypothyroidism - here with 3 days of RUQ Pain and n/v told she has pancreatitis per CT scan at [facility]. Currently WBC count due to prednisone and not infection or severe sepsis. At this time will get records from [facility] - IVF, labs, US of GB. anti-emetics and IV pain medications. Dispo per results and findings. Lab Data Result diagrams: 11/12/21 18:27 11/12/21 18:27 Labs: Lab Results 11/12/21 11/12/21 11/12/21 Range/Units 18:27 18:27 18:27 WBC 19.0 H (4.8-10.8) X10*3/uL RBC 4.19 L (4.20-5.50) X10*6/uL Hgb 12.1 (12.0-16.0) g/dl Hct 36.6 L (37.0-47.0) % MCV 87.4 (80.0-98.0) fL MCH 28.9 (27.0-33.0) pg MCHC 33.1 (31.0-35.0) g/dl RDW 14.1 (11.0-16.0) % Plt Count 405 H (160-400) X10*3/uL MPV 7.9 L (9.4-12.3) fL Immature Gran % (Auto) 0.9 H (0.0-0.4) % Neut % (Auto) 89.5 H (45-73) % Lymph % (Auto) 4.0 L (20-40) % [place] % (Auto) 5.3 (2-11) % Eos % (Auto) 0.1 (0-4) % Baso % (Auto) 0.2 (0-2) % Lymph # (Auto) 0.8 L (1.2-4.9) X10*3/uL [place] # (Auto) 1.0 (0.1-1.2) X10*3/uL Eos # (Auto) 0.0 (0.0-0.4) X10*3/uL Baso # (Auto) 0.0 (0.0-0.2) X10*3/uL Abs Immat Gran (auto) 0.17 H (0.00-0.03) X10*3/uL Absolute Neuts (auto) 17.0 H (2.0-8.3) x10*3/uL Absolute Nucleated RBC 0.000 (0.0-0.012) X10*3/uL Nucleated RBC % (auto) 0.0 (0.0-0.2) /100WBC Sodium 141 (135-145) mmol/L Potassium 3.6 (3.3-5.1) mmol/L Chloride 98 (96-108) mmol/L Carbon Dioxide 28 (22-29) mmol/L Anion Gap 19 (12-20) BUN 23 H (9-16) mg/dL Creatinine 0.74 (0.5-1.4) mg/dL Estim Creat Clear Calc 61.8 Estimated GFR > 60 Random Glucose 141 H (60-115) mg/dL Lactic Acid (0.5-2.0) mmol/L Calcium 9.2 (8.4-10.2) mg/dL Total Bilirubin 0.8 (0.0-1.0) mg/dL AST 13 (5-31) U/L ALT 27 (0-31) U/L Alkaline Phosphatase 106 D (39-117) U/L Lactate Dehydrogenase 215 (122-220) U/L Total Protein 7.6 (6.5-8.0) g/dL Albumin 4.0 (3.5-5.0) g/dL Triglycerides 148 mg/dL Cholesterol 178 mg/dL LDL Cholesterol, Calc 97 mg/dl HDL Cholesterol 52 mg/dL Amylase 60 (28-100) U/L Lipase 6 L (8-78) U/L Urine Color Urine Appearance Urine pH (5.0-9.0) Ur Specific [place] (1.005-1.025) Urine Protein (Neg-Trace) mg/dL Urine Glucose (UA) (Negative) mg/dL Urine Ketones (Negative) mg/dL Urine Blood (Negative) Urine Nitrite (Negative) Ur Leukocyte Esterase (Negative) Urine RBC (0-2) /HPF Urine WBC (0-5) /HPF Ur Squamous Epith Cells (0-2) /HPF Urine Bacteria (None Seen) Hyaline Casts (0-2) /LPF Ethyl Alcohol < 10 mg/dL 11/13/21 11/13/21 Range/Units 00:28 01:23 WBC (4.8-10.8) X10*3/uL RBC (4.20-5.50) X10*6/uL Hgb (12.0-16.0) g/dl Hct (37.0-47.0) % MCV (80.0-98.0) fL MCH (27.0-33.0) pg MCHC (31.0-35.0) g/dl RDW (11.0-16.0) % Plt Count (160-400) X10*3/uL MPV (9.4-12.3) fL Immature Gran % (Auto) (0.0-0.4) % Neut % (Auto) (45-73) % Lymph % (Auto) (20-40) % [place] % (Auto) (2-11) % Eos % (Auto) (0-4) % Baso % (Auto) (0-2) % Lymph # (Auto) (1.2-4.9) X10*3/uL [place] # (Auto) (0.1-1.2) X10*3/uL Eos # (Auto) (0.0-0.4) X10*3/uL Baso # (Auto) (0.0-0.2) X10*3/uL Abs Immat Gran (auto) (0.00-0.03) X10*3/uL Absolute Neuts (auto) (2.0-8.3) x10*3/uL Absolute Nucleated RBC (0.0-0.012) X10*3/uL Nucleated RBC % (auto) (0.0-0.2) /100WBC Sodium (135-145) mmol/L Potassium (3.3-5.1) mmol/L Chloride (96-108) mmol/L Carbon Dioxide (22-29) mmol/L Anion Gap (12-20) BUN (9-16) mg/dL Creatinine (0.5-1.4) mg/dL Estim Creat Clear Calc Estimated GFR Random Glucose (60-115) mg/dL Lactic Acid 1.0 (0.5-2.0) mmol/L Calcium (8.4-10.2) mg/dL Total Bilirubin (0.0-1.0) mg/dL AST (5-31) U/L ALT (0-31) U/L Alkaline Phosphatase (39-117) U/L Lactate Dehydrogenase (122-220) U/L Total Protein (6.5-8.0) g/dL Albumin (3.5-5.0) g/dL Triglycerides mg/dL Cholesterol mg/dL LDL Cholesterol, Calc mg/dl HDL Cholesterol mg/dL Amylase (28-100) U/L Lipase (8-78) U/L Urine Color Yellow Urine Appearance Clear Urine pH 6.5 (5.0-9.0) Ur Specific [place] >= 1.030 H (1.005-1.025) Urine Protein Trace (Neg-Trace) mg/dL Urine Glucose (UA) Negative (Negative) mg/dL Urine Ketones 40 (Negative) mg/dL Urine Blood Small (1+) H (Negative) Urine Nitrite Negative (Negative) Ur Leukocyte Esterase Negative (Negative) Urine RBC >20 H (0-2) /HPF Urine WBC 0-5 (0-5) /HPF Ur Squamous Epith Cells 0-2 (0-2) /HPF Urine Bacteria None Seen (None Seen) Hyaline Casts 0-2 (0-2) /LPF Ethyl Alcohol mg/dL Discharge Plan Discharge Clinical Impression: Constipation, Gastritis, Leukocytosis, Vomiting Patient Disposition: Home, Self-Care Instructions: Gastritis (ED), Constipation (ED), Acute Nausea and Vomiting (ED) Additional Instructions: return to ED for any worsening symptoms or concerns take all medications slight blood in your urine please follow up with your doctor and have this rechecked. FINDINGS: LUNG BASES: There is dependent bibasilar atelectasis. The heart size is normal.? LIVER, GALLBLADDER, AND BILIARY TREE: The liver is normal in size, shape, and attenuation. No focal hepatic lesion or biliary ductal dilatation is present. The gallbladder is unremarkable with no evidence of radiopaque gallstones, gallbladder wall thickening, or obvious pericholecystic inflammatory changes.? PANCREAS: Unremarkable.? SPLEEN: Unremarkable.? ADRENAL GLANDS: Unremarkable.? KIDNEYS AND URETERS: The kidneys are normal in size, shape, and attenuation. No hydronephrosis, hydroureter, or calculi seen. No perinephric stranding. With a hypodense 1.1 cm lesion lower pole left kidney and midpole right kidney probable cyst. BLADDER: Unremarkable.? GASTROINTESTINAL TRACT: There is moderate amount of stool in the right colon with stool and gas in the rest the colon. The small bowel loops are normal caliber. Appendix is not visualized. The stomach is nondistended and appears unremarkable. No free air or free fluid seen. ABDOMINAL WALL: No significant hernia is appreciated.? LYMPH NODES: Normal. VASCULAR: Unremarkable. PELVIC VISCERA: The uterus is anteverted with small calcified fibroid in the fundus. No free fluid. No abnormal pelvic or inguinal lymph nodes.? OSSEOUS STRUCTURES: There are bilateral pedicular screws L4, L5 and S1 vertebra with intervening L4-L5 and L5/S1 disc prosthesis for fusion. Rest the visualized lumbosacral spine appears unremarkable.? CT/CT abdomen pelvis w IV con IMPRESSION: Moderate constipation without obstruction. ? Likely bilateral renal cysts without radiopaque renal calculi or hydronephrosis. ? Lower lumbar spine fusion.? ? Fleischner guidelines were followed. Prescriptions: New promethazine 25 mg suppository 25 mg ID Q6H PRN (Reason: nausea and vomiting) Qty: 12 0RF docusate sodium [Colace] 100 mg capsule 100 mg PO BID PRN (Reason: constipation) Qty: 30 0RF senna 8.6 mg capsule 8.6 mg PO BEDTIME PRN (Reason: constipation) Qty: 30 0RF lactulose 10 gram/15 mL solution 10 g PO DAILY PRN (Reason: constipation) Qty: 237 0RF ondansetron 4 mg tablet,disintegrating 4 mg PO Q8H PRN (Reason: nausea and vomiting) Qty: 20 0RF omeprazole 20 mg capsule,delayed release(DR/EC) 20 mg PO DAILY Qty: 14 0RF No Action cefuroxime axetil 500 mg tablet 500 mg PO BID 7 Days Qty: 14 0RF benzonatate 200 mg capsule 200 mg PO TID PRN (Reason: cough) Qty: 20 0RF ondansetron 4 mg tablet,disintegrating 4 mg PO Q6-8H PRN (Reason: nausea and vomiting) Qty: 7 0RF acetaminophen 500 mg tablet 1,000 mg PO QID PRN (Reason: pain) Qty: 30 0RF oxycodone 5 mg tablet 5 mg PO Q6H PRN (Reason: pain) Qty: 14 0RF Rx Instructions: Partial Fill upon patient request. ibuprofen 600 mg tablet 600 mg PO Q6H PRN (Reason: pain) Qty: 20 0RF Referrals: Pollo Vo MD [Primary Care Provider] - 11/14/21 Stand Alone Forms: Work/School Release
[2021-11-12] MEDS: diphenhydrAMINE HCL 50 MG/ML VIAL 25 MG IVPUSH (21:41)
[2021-11-12] MEDS: Metoclopramide HCl 10 MG/2 ML VIAL IVPUSH (21:41)
[2021-11-12] MEDS: HYDROmorphone HCl 0.5 MG/0.5 ML SYRINGE IVPUSH (21:41)
[2021-11-12] MEDS: 0.9 % Sodium Chloride 1,000 ML 999 ML IV (21:44)
[2021-11-12 23:17] VITALS: BP 123/57; PULSE 58; RESP 16; O2SAT 97
[2021-11-13] MEDS: iohexoL 350 MG/ML 100 ML INFUS..BTL 85 ML IV (00:08)
[2021-11-13] MEDS: 0.9 % Sodium Chloride 1,000 ML 999 ML IV (00:24)
[2021-11-13] MEDS: Lidocaine HCl Viscous 2 % 15 ML SOLUTION MUCOUS MEM (01:08)
[2021-11-13] MEDS: Magnesium Hydrox/Alum Hydrox 30 ML ORAL.SUSP 15 ML PO (01:08)
[2021-11-13] MEDS: Famotidine/PF 20 MG/2 ML VIAL IVPUSH (01:09)
[2021-11-13] MEDS: Sennosides 8.6 MG TABLET PO (01:09)
[2021-11-13] MEDS: Lactulose 20 GM/30 ML SOLUTION PO (01:09)
[2021-11-13 01:36] LABS: Appearance Urine Clear; Color Urine Yellow; Glucose Urine UA Negative (Negative); Leukocyte Esterase Urine Negative (Negative); Nitrite Urine Negative (Negative); PH 6.5 (5.0-9.0); Specific Gravity - Urine >= 1.030 (1.005-1.025); UMIC TRIGGER UACC YES; Urine Blood Small (1+) (Negative); Urine Ketones 40 mg/dL (Negative); Urine Protein Trace mg/dL (Neg-Trace)
[2021-11-13 01:39] LABS: Bacteria Urine None Seen (None Seen); Hyaline Casts Urine 0-2 /LPF (0-2); RBC Urine >20 /HPF (0-2); Squamous Epithelial Cell Urine 0-2 /HPF (0-2); WBC Urine 0-5 /HPF (0-5)
[2021-11-13] MEDS: Ketorolac Tromethamine 15 MG/ML VIAL IVPUSH (02:15)
== END 2021-11-13 02:12 | disposition home or self-care (01) ==
PROVIDERS: Physician Assistant Medical; Emergency Provider Emergency Medicine; PCP Internal Medicine
DX: K59.00 Constipation, unspecified (principal); K29.70 Gastritis, unspecified, without bleeding; D72.829 Elevated white blood cell count, unspecified; R11.2 Nausea with vomiting, unspecified; R10.13 Epigastric pain; Z79.899 Other long term (current) drug therapy
CPT/HCPCS: 36415; 74177; 76705; 80053; 80061; 81001; 82077; 82150; 83605; 83615; 83690; 85025; 87040; 87077; 87186; 87205; 96361; 96374; 96375; 99284; J1170; J1200; J1885; J2765; Q9967

== ENCOUNTER 2021-11-13 15:38 | Inpatient (IN) | payer OTHER, SELFPAY ==
--- NOTE | ~2021-11-13 | IR_ITS ---
PROCEDURE: IR INSERTION OF PICC CLINICAL INFORMATION: Prolonged antibiotics. COMPARISON: None. TECHNIQUE: Ultrasound and fluoroscopic-guided left upper extremity PICC line placement. All elements of maximal sterile barrier technique followed including use of cap, mask, sterile gown, sterile gloves, a sterile full body drape and hand hygiene. Also followed skin preparation with 2% chlorhexidine for cutaneous antisepsis, and sterile ultrasound preparation with sterile gel and probe cover when applicable. FINDINGS: Informed consent was obtained from the patient prior to the procedure. During this process, the procedure and potential alternatives were explained, along with the intended outcome and benefits. The risks of the procedure, as well as the risk of not doing the procedure, were discussed. The patient was given the opportunity to ask questions regarding the procedure and appeared competent to make medical decisions. A signed consent form which documents this discussion was placed in the medical record. Ultrasound of the left upper extremity was performed demonstrating patency of the brachial and basilic veins. PACS image was sent of the ultrasound. Using sterile technique and ultrasound guidance a 21-gauge needle was placed into the left basilic vein above the elbow with guidewire advanced to the inferior vena cava. A 5 Croatian dilator with peel-away catheter was then placed. PICC line was trimmed to 43 cm in length and advanced through the peel-away sheath over guidewire to the cavoatrial junction. Catheter was aspirated and flushed freely. The catheter was heparin locked with 100 mL/mL of Hep-Lock solution. A Biopatch was placed and the PICC line was secured with Statlock. Patient tolerated procedure without difficulty. IR/IR cvc insert peripheral IMPRESSION: Placement of single-lumen left upper extremity PICC line as described. 1.3 minutes fluoroscopy. 162 cGy centimeter squared.
--- NOTE | ~2021-11-13 | NM_ITS ---
EXAMINATION: NM RADIONUCLIDE WHITE BLOOD CELL STUDY CLINICAL INFORMATION: Bacteremia. Osteomyelitis or source of infection. COMPARISON: None TECHNIQUE: Multiple gamma scintillation camera images of the whole body were performed 135 hours following the intravenous administration of 20 mCi Tc-99m Ceretec labeled autologous white cells. Additional images of the chest and abdomen were obtained to demonstrate physiological white blood cell tagging. FINDINGS: On whole body Ceretec scan there is no abnormal activity seen in the calvarium or the neck. There is mild increase activity seen in bilateral lung parenchyma. However no intense focal activity seen in the chest. No abnormal activity seen in the upper extremities except for site of injection left elbow. There is normal activity seen in the liver and spleen. No abnormal focal activity seen in the abdomen or pelvis. There is no abnormal activity seen in the cervical, dorsal or lumbosacral spine to suspect any site of infection. No abnormal focal or diffuse activity seen within the lumbar vertebrae at the site of surgery or anywhere in the spine to suspect osteomyelitis. There are reactionary increased activity in bilateral SI joints from the hardware. No abnormal activity seen in the lower extremities. NM/NM white blood scan IMPRESSION: Mild to moderate activity seen within the lungs likely secondary to low-grade inflammatory process or interstitial pneumonitis. Correlate with chest x-ray. No abnormal activity seen in the skeletal system especially within the lower lumbar spine where patient has hardware to suspect osteomyelitis. There are mild reactionary changes in bilateral SI joints.
[2021-11-13 15:52] VITALS: BP 138/74; PULSE 75; RESP 18; TEMP 36.9; O2SAT 98; BMI 24.2
--- NOTE | 2021-11-13 15:52 | ECG_ITS ---
Test Reason : POSITIVE BLOOD CULTURES Blood Pressure : / mmHG Vent. Rate : 086 BPM Atrial Rate : 086 BPM P-R Int : 158 ms QRS Dur : 080 ms QT Int : 366 ms P-R-T Axes : 051 011 017 degrees QTc Int : 437 ms Normal sinus rhythm with sinus arrhythmia Normal ECG When compared with ECG of 08-NOV-2021 13:46, No significant change was found Referred By: Generic ED Physician Electronically Signed By:BRUNA SALDIVAR
[2021-11-13 16:11] LABS: Basophils Percent Auto 0.1 % (0-2); Hematocrit 34.8 % (37.0-47.0); Hemoglobin 11.5 g/dl (12.0-16.0); Imm Gran Abs Auto 0.17 X10*3/uL (0.00-0.03); Lymphocytes Absolute Auto 0.3 X10*3/uL (1.2-4.9); MANUAL DIFF FLAG SCAN; Mean Corpuscular Hemoglobin 29.2 pg (27.0-33.0); Mean Corpuscular Volume 88.3 fL (80.0-98.0); Mean Platelet Volume 7.9 fL (9.4-12.3); Monocytes Absolute Auto 0.2 X10*3/uL (0.1-1.2); Monocytes Percent Auto 1.3 % (2-11); Neutrophils Absolute Auto 15.9 x10*3/uL (2.0-8.3); Neutrophils Percent Auto 95.6 % (45-73); Platelet Count 310 X10*3/uL (160-400); Red Blood Count 3.94 X10*6/uL (4.20-5.50); SCAN SMEAR FLAG 1; White Blood Count 16.6 X10*3/uL (4.8-10.8)
[2021-11-13 16:28] LABS: COVID-19 Test Negative (Negative); IDNOW Serial# 16C4AD1C
[2021-11-13 16:31] LABS: SLIDE REVIEW VERIFIED
[2021-11-13 16:34] LABS: Alanine Aminotransferase 23 U/L (0-31); Albumin Level 3.6 g/dL (3.5-5.0); Alkaline Phosphatase 101 U/L (39-117); Anion Gap 17 (12-20); Aspartate Amino Transferase 17 U/L (5-31); Bilirubin Total 1.3 mg/dL (0.0-1.0); Blood Urea Nitrogen 16 mg/dL (9-16); Calcium 8.5 mg/dL (8.4-10.2); Carbon Dioxide 25 mmol/L (22-29); Chloride 98 mmol/L (96-108); Creatinine Clr Calc Pharmacy 63.5; Estimated Glomerular Filt Rate > 60; Glucose Random 210 mg/dL (60-115); Potassium 3.8 mmol/L (3.3-5.1); Sodium 136 mmol/L (135-145); Total Protein 6.9 g/dL (6.5-8.0)
[2021-11-13 22:59] LABS: Lactic Acid 0.8 mmol/L (0.5-2.0)
[2021-11-13 23:01] LABS: Lipase 9 U/L (8-78)
[2021-11-14 00:39] VITALS: BP 120/69; PULSE 79; RESP 18; O2SAT 97
--- NOTE | 2021-11-14 00:59 | ED.RECABL ---
HPI - Recheck/Abnormal Lab/Rx General Chief Complaint: Recheck/Abnormal Lab/Rx Stated Complaint: blood culture Time Seen by Provider: 11/13/21 22:24 Source: patient Mode of arrival: ambulatory Limitations: no limitations History of Present Illness HPI narrative: 66-year-old female who was asked to return to the emergency department for re-evaluation positive blood cultures done on 11/13/2021 at 00:28 hours. The patient grew Gram-positive cocci in clusters in all 4 bottles. The patient states that she developed blurred vision in her left eye approximately 2 weeks prior and there was a concerned that she might have temporal arteritis. She states that she was started on prednisone and she has been on prednisone for 2 weeks. The patient had a temporal artery biopsy at [facility] which she states was negative for temporal arteritis and she is now tapering off steroids. She states however over the last 2 weeks she was having intermittent bilateral chest pain and she points to her left and right lower lateral rib area when asked to localize this pain. She states that the pain was a dull ache and was moderate to severe in intensity. Five days prior she states that the pain became constant, more severe and now more severe on the right side than on the left. she also developed fever, chills sweats, nausea and vomiting with decreased appetite. She was seen here on and diagnosed with costochondritis. She states she followed up with her PCP who was more concerned that the pain may be secondary to her abdominal source and the patient went to [facility]. apparently the patient had a CT scan which was concerning for inflammation around the pancreas, her lipase was 691 and her white blood cell count at [facility] was 19,000. The patient states she was not given any pain medications and was told to stay on a liquid diet. 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 Her laboratory evaluation revealed an elevated WBC 95174, elevated glucose 210, elevated bilirubin 1.3 and a normal lipase of 9. Urinalysis revealed RBCs otherwise unremarkable. microscopic revealed greater than 20 RBCs. Ultrasound revealed borderline dilatation of the common bile duct with no cholecystitis /cholelithiasis. CT scan of the abdomen pelvis CT scan of the abdomen pelvis without IV contrast revealed no specific findings of for constipation. 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 Related Data Previous Rx's Medication Instructions Recorded benzonatate 200 mg capsule 200 mg PO TID PRN cough #20 caps 10/20/21 cefuroxime axetil 500 mg tablet 500 mg PO BID 7 days #14 tabs 10/20/21 ondansetron 4 mg disintegrating 4 mg PO Q6-8H PRN nausea and 10/20/21 tablet vomiting #7 tabs acetaminophen 500 mg tablet 1,000 mg PO QID PRN pain #30 tabs 11/08/21 ibuprofen 600 mg tablet 600 mg PO Q6H PRN pain #20 tabs 11/08/21 oxycodone 5 mg tablet 5 mg PO Q6H PRN pain #14 tabs 11/08/21 docusate sodium 100 mg capsule 100 mg PO BID PRN constipation #30 11/13/21 (Colace) caps lactulose 10 gram/15 mL oral 10 g (15 mL) PO DAILY PRN 11/13/21 solution constipation #237 mL omeprazole 20 mg capsule,delayed 20 mg PO DAILY #14 caps 11/13/21 release ondansetron 4 mg disintegrating 4 mg PO Q8H PRN nausea and 11/13/21 tablet vomiting #20 tabs promethazine 25 mg [address] Q6H PRN nausea and 11/13/21 suppository vomiting #12 ea sennosides 8.6 mg capsule (senna) 8.6 mg PO BEDTIME PRN constipation 11/13/21 #30 caps Allergies Allergy/AdvReac Type Severity Reaction Status Date / Time Sulfa (Sulfonamide Allergy Unknown Verified 11/12/21 15:17 Antibiotics) morphine AdvReac Itching Verified 10/20/21 23:31 oxycodone AdvReac Vomiting Verified 11/12/21 15:17 Review of Systems Review of Systems: Yes all other systems are reviewed and are negative [facility] Past Medical History [facility] Narrative: Past medical history: Chronic back pain, GERD, hypothyroidism, COVID-19 infection 10/03/2021, colon cancer 2012 treated with radiation therapy and chemotherapy. Past surgical history: Appendectomy, bilateral tubal ligation, L4-L5 fusion, L5-S1 fusion, tonsillectomy,. Social history: She denies tobacco use, she occasionally drinks wine, she states that she uses marijuana edibles. Medical History Chronic back pain Hypothyroidism Social History Social History (Updated 11/12/21 @ 21:23 by Jennyfer Cohen DO) Alcohol intake: never Patient Tobacco Use Status: Never used Tobacco Advance Directives: No Physical Exam Vital Signs: Vital Signs: Last Vital Signs Temp 98.5 F 11/13/21 15:52 Pulse 79 11/14/21 00:39 Resp 18 11/14/21 00:39 BP 120/69 11/14/21 00:39 Pulse Ox 97 11/14/21 00:39 O2 Del Method 11/14/21 00:39 BMI result Body Mass Index 24.2 Const: General: cooperative and no acute distress Orientation/consciousness: oriented to person and oriented to place Limitations: no limitations HEENT: Head: Yes normal to inspection, Yes normocephalic and Yes atraumatic Ears: external ears normal General nose exam: Normal external nose present Face and sinus: Yes normal facial exam Mouth: Normal oral and palatal mucosa present Throat: Yes posterior oropharynx normal Eyes: General: appearance normal, both eyes and all related structures Pupils: Equal, round and reactive pupils present Neck: Neck: Yes normal visual inspection, Yes no lymphadenopathy, Yes trachea midline and Yes supple Chest: Chest palpation & inspection: normal inspection of the chest and normal palpation of entire chest wall Resp: Effort & Inspection: normal respiratory effort and able to speak in complete sentences Auscultation: clear to auscultation bilaterally Cardio: Rate: regular rate Rhythm: regular rhythm Heart sounds: S1 normal heart sound present, S2 normal heart sound present and no murmurs GI: Inspection: Yes normal to inspection Palpation (GI): Soft to palpation, nontender and no guarding Auscultation: normal bowel sounds : General: Yes no CVA tenderness Back/Spine/Pelvis: Back: no CVA tenderness Skin: Other: Patient has 6 small ulcerative lesions to her right buttocks area, they seem to be clustered in 3, there is no purulent discharge, no erythema around these lesions. Neuro: General: oriented to person and oriented to place Cranial nerves: Yes CN's II-XII intact bilaterally and Yes Equal, round and reactive pupils present Cognition (Neuro): normal cognition Motor exam (neuro): 5/5 motor strength present throughout Extrem: General: Yes normal to inspection Psych: Appearance: grossly normal Speech and movement: Normal speech and movement present Affect: normal affect Attitude: cooperative Thought process: Normal thought process present Thought content: Normal thought content present Course Course Course Narrative: 66-year-old female who was seen here in the emergency department on 11/12/2021 and had blood culture x2 sets which grew Gram-positive cocci in clusters which is concerning for Staph aureus. The patient has been on prednisone for 2 weeks for change in her vision of her left eye and she had temporal artery biopsy which she states was negative for temporal /giant cell arteritis. The patient has been experiencing bilateral lateral lower rib pain right greater than left x2 weeks, worse the last 5 days associated with fever, sweats and shaking chills. She had a workup at [facility] on 11/11/2021 which was concerning for pancreatitis however she had a repeat workup here on 11/12/2021 which was negative for pancreatitis. At this time, I do not have a clear source for the patient's bacteremia, endocarditis needs to be considered. Patient does have some lesions on her right buttocks area but I do not think that these are the source of her bacteremia. Repeat blood work on today's visit did reveal an elevated WBC 16,600, patient's LFTs were normal except for an elevated bilirubin of 1.3. Lipase was normal. Lactate was normal. Repeat blood cultures x2 sets were also obtained. I did order vancomycin 1500 mg IV. the patient will need to be admitted to further evaluate her bacteremia to see if we can find a source. I did not appreciate a murmur on this patient, but endocarditis needs to be considered. I will discuss admission with the covering hospitalist. 0158: I did discuss the patient's presentation with the covering hospitalist , Dr. Duke and the patient will be admitted for further evaluation . MDM - Recheck/Abnormal Lab/Rx Lab Data Result diagrams: 11/13/21 16:05 11/13/21 16:05 Labs: Lab Results 11/13/21 11/13/21 11/13/21 Range/Units 16:05 16:05 16:05 WBC 16.6 H (4.8-10.8) X10*3/uL RBC 3.94 L (4.20-5.50) X10*6/uL Hgb 11.5 L (12.0-16.0) g/dl Hct 34.8 L (37.0-47.0) % MCV 88.3 (80.0-98.0) fL MCH 29.2 (27.0-33.0) pg MCHC 33.0 (31.0-35.0) g/dl RDW 14.0 (11.0-16.0) % Plt Count 310 (160-400) X10*3/uL MPV 7.9 L (9.4-12.3) fL Immature Gran % (Auto) 1.0 H (0.0-0.4) % Neut % (Auto) 95.6 H (45-73) % Lymph % (Auto) 2.0 L (20-40) % [place] % (Auto) 1.3 L (2-11) % Eos % (Auto) 0.0 (0-4) % Baso % (Auto) 0.1 (0-2) % Lymph # (Auto) 0.3 L (1.2-4.9) X10*3/uL [place] # (Auto) 0.2 (0.1-1.2) X10*3/uL Eos # (Auto) 0.0 (0.0-0.4) X10*3/uL Baso # (Auto) 0.0 (0.0-0.2) X10*3/uL Abs Immat Gran (auto) 0.17 H (0.00-0.03) X10*3/uL Absolute Neuts (auto) 15.9 H (2.0-8.3) x10*3/uL Absolute Nucleated RBC 0.000 (0.0-0.012) X10*3/uL Nucleated RBC % (auto) 0.0 (0.0-0.2) /100WBC Smear Tech's Comments VERIFIED Sodium 136 (135-145) mmol/L Potassium 3.8 (3.3-5.1) mmol/L Chloride 98 (96-108) mmol/L Carbon Dioxide 25 (22-29) mmol/L Anion Gap 17 (12-20) BUN 16 (9-16) mg/dL Creatinine 0.72 (0.5-1.4) mg/dL Estim Creat Clear Calc 63.5 Estimated GFR > 60 Random Glucose 210 H (60-115) mg/dL Lactic Acid 1.0 (0.5-2.0) mmol/L Calcium 8.5 D (8.4-10.2) mg/dL Total Bilirubin 1.3 H (0.0-1.0) mg/dL AST 17 (5-31) U/L ALT 23 (0-31) U/L Alkaline Phosphatase 101 (39-117) U/L Total Protein 6.9 (6.5-8.0) g/dL Albumin 3.6 (3.5-5.0) g/dL Lipase 9 (8-78) U/L COVID-19 ([facility]) (Negative) COVID-19 Clin Com 11/13/21 11/13/21 Range/Units 16:05 22:42 WBC (4.8-10.8) X10*3/uL RBC (4.20-5.50) X10*6/uL Hgb (12.0-16.0) g/dl Hct (37.0-47.0) % MCV (80.0-98.0) fL MCH (27.0-33.0) pg MCHC (31.0-35.0) g/dl RDW (11.0-16.0) % Plt Count (160-400) X10*3/uL MPV (9.4-12.3) fL Immature Gran % (Auto) (0.0-0.4) % Neut % (Auto) (45-73) % Lymph % (Auto) (20-40) % [place] % (Auto) (2-11) % Eos % (Auto) (0-4) % Baso % (Auto) (0-2) % Lymph # (Auto) (1.2-4.9) X10*3/uL [place] # (Auto) (0.1-1.2) X10*3/uL Eos # (Auto) (0.0-0.4) X10*3/uL Baso # (Auto) (0.0-0.2) X10*3/uL Abs Immat Gran (auto) (0.00-0.03) X10*3/uL Absolute Neuts (auto) (2.0-8.3) x10*3/uL Absolute Nucleated RBC (0.0-0.012) X10*3/uL Nucleated RBC % (auto) (0.0-0.2) /100WBC Smear Tech's Comments Sodium (135-145) mmol/L Potassium (3.3-5.1) mmol/L Chloride (96-108) mmol/L Carbon Dioxide (22-29) mmol/L Anion Gap (12-20) BUN (9-16) mg/dL Creatinine (0.5-1.4) mg/dL Estim Creat Clear Calc Estimated GFR Random Glucose (60-115) mg/dL Lactic Acid 0.8 (0.5-2.0) mmol/L Calcium (8.4-10.2) mg/dL Total Bilirubin (0.0-1.0) mg/dL AST (5-31) U/L ALT (0-31) U/L Alkaline Phosphatase (39-117) U/L Total Protein (6.5-8.0) g/dL Albumin (3.5-5.0) g/dL Lipase (8-78) U/L COVID-19 ([facility]) Negative (Negative) COVID-19 Clin Com See Note Discharge Plan Discharge Patient Disposition: Admitted As Inpatient
[2021-11-14] MEDS: vancomycin HCL 1,500 MG in 0.9 % Sodium Chloride 500 ML 333.33 MG IV (01:28)
[2021-11-14] MEDS: 0.9 % Sodium Chloride 1,000 ML 999 ML IV (01:28)
--- NOTE | 2021-11-14 02:26 | PM.IMHP ---
History of Present Illness Date of Service: 11/14/21 Chief Complaint: Positive blood cultures 66-year-old female with a past medical history of GERD, hypothyroidism, chronic back pain, history of colon cancers status post chemotherapy/radiotherapy in 2011, chronic back pain status post spine surgery, recent history of COVID-19 infection in September 2021; presented to the hospital today with a chief complaint of Positive blood cultures. Patient mentioned that she recently had left eye blurry vision-> was initially concern for temporal arteritis and was on prednisone for 2 weeks; followed by she had biopsy done at [facility] which came back negative for temporal arteritis. And subsequently prednisone has been tapering. Patient also reports that over the past few days she has been having bilateral lower rib pain; and came to the ER yesterday for evaluation and had CT abdomen pelvis done which showed no evidence of renal calculi, noted to have constipation. Patient also reported and chest discomfort-presumed to be costochondritis on 11/08/2021 and subsequently discharged home. Patient mentioned that yesterday she had severe pain came back to the ER and had negative workup subsequently discharged home. Pain improved. Today patient was called back from the hospital because of abnormal blood culture results-consistent with 4/4 bottles growing Gram-positive cocci. Patient denies any fever chills cough or sputum production. Denies any urinary frequency urgency or dysuria. Patient denies any chest pain or palpitations. Denies any nausea vomiting or diarrhea Review of all other systems is negative except mentioned above ER course: Per ER team patient's vitals are stable, nonfocal examination, repeat blood cultures were sent. Patient was given IV vancomycin. Admitted to the hospital for further management [facility] Medical History Chronic back pain Hypothyroidism Social History (Updated 11/12/21 @ 21:23 by Jennyfer Cohen DO) Alcohol intake: never Patient Tobacco Use Status: Never used Tobacco Advance Directives: No Meds Allergies Allergy/AdvReac Type Severity Reaction Status Date / Time Sulfa (Sulfonamide Allergy Unknown Verified 11/12/21 15:17 Antibiotics) morphine AdvReac Itching Verified 10/20/21 23:31 oxycodone AdvReac Vomiting Verified 11/12/21 15:17 Active Medications: Current Medications Vancomycin HCl 1,500 mg/ (Sodium Chloride) 500 mls @ 333.333 mls/hr IV ONCE ONE Stop: 11/14/21 02:39 Last Admin: 11/14/21 01:28 Dose: 333.33 mls/hr Pharmacy Consult (Consult Rx Vancomycin Dosing) 1 each MISCELLANE DAILY PRN PRN Reason: Consult order Home Medications Medication Instructions Recorded Confirmed Last Taken Type levothyroxine 50 mcg capsule 50 mcg PO DAILY 11/14/21 11/14/21 Unknown History Physical Exam Vital Signs and Narrative: Vital Signs: Last Vital Signs Temp 98.5 F 11/13/21 15:52 Pulse 79 11/14/21 00:39 Resp 18 11/14/21 00:39 BP 120/69 11/14/21 00:39 Pulse Ox 97 11/14/21 00:39 O2 Del Method 11/14/21 00:39 BMI result Body Mass Index 24.2 Gen: Appears be in no acute distress HEENT: NCAT, Moist mucosa. Pulmonary: Vesicular breath sounds, fair air entry CVS: Normal S1-S2 Abdomen: BS+, Soft, Nontender Extremities: Warm well perfused Neuro: Alert and awake. Results Labs CBC and Chem 7: 11/13/21 16:05 11/13/21 16:05 Labs: Laboratory Results - last 24 hr 11/13/21 11/13/21 11/13/21 16:05 16:05 16:05 MCV 88.3 MCH 29.2 MCHC 33.0 RDW 14.0 Plt Count 310 MPV 7.9 L Immature Gran % (Auto) 1.0 H Neut % (Auto) 95.6 H Lymph % (Auto) 2.0 L [place] % (Auto) 1.3 L Eos % (Auto) 0.0 Baso % (Auto) 0.1 Lymph # (Auto) 0.3 L [place] # (Auto) 0.2 Eos # (Auto) 0.0 Baso # (Auto) 0.0 Abs Immat Gran (auto) 0.17 H Absolute Neuts (auto) 15.9 H Absolute Nucleated RBC 0.000 Nucleated RBC % (auto) 0.0 Smear Tech's Comments VERIFIED Anion Gap 17 Estim Creat Clear Calc 63.5 Estimated GFR > 60 Random Glucose 210 H Lactic Acid 1.0 Calcium 8.5 D Total Bilirubin 1.3 H AST 17 ALT 23 Alkaline Phosphatase 101 Total Protein 6.9 Albumin 3.6 Lipase 9 COVID-19 (ROSA) COVID-19 Clin Com 11/13/21 11/13/21 16:05 22:42 MCV MCH MCHC RDW Plt Count MPV Immature Gran % (Auto) Neut % (Auto) Lymph % (Auto) [place] % (Auto) Eos % (Auto) Baso % (Auto) Lymph # (Auto) [place] # (Auto) Eos # (Auto) Baso # (Auto) Abs Immat Gran (auto) Absolute Neuts (auto) Absolute Nucleated RBC Nucleated RBC % (auto) Smear Tech's Comments Anion Gap Estim Creat Clear Calc Estimated GFR Random Glucose Lactic Acid 0.8 Calcium Total Bilirubin AST ALT Alkaline Phosphatase Total Protein Albumin Lipase COVID-19 (ROSA) Negative COVID-19 Clin Com See Note Assessment and Plan (1) Bacteremia: Status: Acute Plan 66-year-old female with a past medical history of GERD, hypothyroidism, chronic back pain, history of colon cancers status post chemotherapy/radiotherapy in 2011, chronic back pain status post spine surgery, recent history of COVID-19 infection in September 2021; presented to the hospital today with a chief complaint of Positive blood cultures. Bacteremia: Blood cultures growing GPC-final results pending Vitals currently stable Continue IV vancomycin Id consult Echocardiogram No obvious source of infection-no evidence of cellulitis. No pulmonary or urinary symptoms. Left eye blurry vision: Improving per patient. Initially presumed to be temporal arteritis-biopsy negative. Was on prednisone-currently being tapered. Patient is supposed to be taking 30 mg for the 2 days followed by 20 mg 3 days and 10 mg 3 days followed by. Bilateral lower rib pain: CT scan showed no acute findings except for constipation. Chronic low back pain: Radiates down the leg. Unchanged. Tramadol p.r.n. History of hypothyroidism: Continue home levothyroxine History of GERD: Ppi Microscopic hematuria: As noted on the urinalysis. Outpatient Urology follow-up DVT prophylaxis: Lovenox Code status: Full code Quality Stroke Does the patient have a stroke diagnosis?: No VTE Prior VTE?: No VTE Risk Level:: Medical - moderate - high VTE Device Contraindication: Treatment Not Indicated VTE Drug Contraindication: N/A - Med Ordered
[2021-11-14 02:41] LABS: C Reactive Protein 23.12 mg/dL (< or = 0.50)
[2021-11-14 02:44] VITALS: BP 126/66; PULSE 76; RESP 18; O2SAT 94
[2021-11-14 03:10] LABS: Erythrocyte Sedimentation Rate 90 MM/HR (0-20)
[2021-11-14] MEDS: Enoxaparin Sodium 40 MG/0.4 ML SYRINGE SUBCUT (03:55)
[2021-11-14] MEDS: Ketorolac Tromethamine 15 MG/ML VIAL IVPUSH (04:39)
[2021-11-14] MEDS: Levothyroxine Sodium 50 MCG TABLET PO (06:48)
[2021-11-14 06:49] LABS: MANUAL DIFF FLAG NO
[2021-11-14 06:55] LABS: Basophils Percent Auto 0.1 % (0-2); Eosinophils Percent Auto 0.2 % (0-4); Hematocrit 27.7 % (37.0-47.0); Hemoglobin 9.4 g/dl (12.0-16.0); Imm Gran Abs Auto 0.13 X10*3/uL (0.00-0.03); Lymphocytes Absolute Auto 1.8 X10*3/uL (1.2-4.9); Lymphocytes Percent Auto 13.1 % (20-40); Mean Corpuscular HGB Conc 33.9 g/dl (31.0-35.0); Mean Corpuscular Hemoglobin 29.6 pg (27.0-33.0); Mean Corpuscular Volume 87.1 fL (80.0-98.0); Monocytes Absolute Auto 0.8 X10*3/uL (0.1-1.2); Monocytes Percent Auto 6.2 % (2-11); Neutrophils Absolute Auto 10.6 x10*3/uL (2.0-8.3); Neutrophils Percent Auto 79.4 % (45-73); Platelet Count 278 X10*3/uL (160-400); Red Blood Count 3.18 X10*6/uL (4.20-5.50); White Blood Count 13.4 X10*3/uL (4.8-10.8)
--- NOTE | 2021-11-14 07:00 | CA_ITS ---
Transthoracic Echocardiogram Patient (Last, First, Middle): Tatum Thornton, Gender: Female Date of : 1955 Age: 66 Procedure Date: 11/14/2021 Procedure Type: Transthoracic Echocardiogram Location: ER Height: 160.02 cm Weight: 61.69 kg BSA: 1.64 m2 Heart Rate: bpm BP: 118 / 60 mmHg Spot Remover: Referring MD: Reggie Duke MD Symptoms: bacteremia Study Quality: Good ECG Rhythm: Sinus Conclusions: - The left ventricular systolic function is normal. The calculated ejection fraction is 70% by biplane method. - No obvious valvular pathology seen on this study. Findings Left Ventricle Normal left ventricular cavity size. There is normal left ventricular wall thickness. The left ventricular systolic function is normal. The calculated ejection fraction is 70% by biplane method. There is no evidence of regional wall motion abnormalities. Diastolic function is normal for age. There is mild septal asymmetric hypertrophy. Right Ventricle Mildly increased right ventricular cavity size. There is normal right ventricular systolic function. Atria Both atria are normal in size. Aortic Valve There is a normal trileaflet aortic valve. There is no aortic valve stenosis. There is no aortic valve regurgitation. Mitral Valve The mitral valve appears normal. There is no mitral valve regurgitation. There is no mitral valve stenosis. Pulmonic Valve The pulmonic valve is likely normal. Tricuspid Valve There is trace tricuspid valve regurgitation. There is no evidence of pulmonary hypertension. Great Vessels The aortic annulus, sinuses of valsalva, and asc aorta are normal in size. Venous The inferior vena cava is normal in size and collapses greater than 50% with inspiration. Pericardium/Pleural There is no evidence of pericardial effusion. Prior Study Comparison No prior study available for comparison. Recommendations, Care & Conclusions No obvious valvular pathology seen on this study. Consider a JESSICA if clinically appropriate. Measurements 2D Linear Measurements IVSd: 1.11 0.6-0.9/0.6-1.0 cm LVIDd: 4.32 3.9-5.3/4.2-5.9 cm LVIDd Index: 2.63 2.4-3.2/2.2-3.1 cm/m2 LVIDs: 2.85 2.0-3.6 cm LVPWd: 0.95 0.7-1.1 cm Ao Root: 3.10 2.1-3.5 cm LA Diam: 3.70 2.7-3.8/3.0-4.0 cm LAIDs Index: 2.26 1.5-2.3 cm/m2 LV Mass: 186.36 67-162/88-224 g LV Mass Index: 113.64 43-95/49-115 g/m2 LVOT Diam: 2.00 3.0+(-)1.3 cm 2D Systolic Function EF 4C: 64.80 >55% EF 2C: 74.80 >55% EF BiP: 69.50 >55% Mitral Valve MV Pk E: 1.04 MV PK A: 1.02 MV Decel Time: 186.00 E/A: 1.00 E'Lateral: 13.70 E'Medial: 9.90 E/E' Med: 10.50 E/E' Lat: 7.60 PHT: 54.00 MVA PHT: 4.07 Decel Ida: 5.58 Aortic Valve AoV Pk Warren: 1.57 AoV Mn Warren: 0.99 AoV VTI: 0.34 AoV Pk Grad: 10.00 Aov Mn Grad: 5.00 SHELBY Cont.VTI: 2.55 LVOT LVOT Pk Warren: 1.37 LVOT Mn Warren: 0.82 LVOT VTI: 0.28 LVOT Pk Grad: 8.00 LVOT Mn Grad: 3.00 LVOT Diam: 2.00 LVOT Area: 3.14 Diastolic Function MV Pk E: 1.04 MV Pk A: 1.02 E/A: 1.00 E'Medial: 9.90 E/E' Med: 10.50 E' Laterial: 13.70 E/E' Lat: 7.60 Right Ventricle TAPSE (mm): 26.00 TVS' Warren: 16.00 Tricuspid Valve TR Pk Warren: 2.24 TR Pk Grad: 20.00 RA Press: 3.00 RVSP: 23.00 Great Vessels Aorta Ao Root-2D: 3.10 2.0-3.7 cm Ao Asc: 2.70 2.1-3.4 cm Pulmonary Valve PV Pk Warren: 1.09 Peak PV Grad: 5.00 Updated in Other Vendor System with Status of Final Osmar Duffy MD electronically signed on 11/14/2021 4:55:26 PM with status of Final
[2021-11-14 07:08] LABS: Anion Gap 14 (12-20); Blood Urea Nitrogen 17 mg/dL (9-16); Calcium 7.5 mg/dL (8.4-10.2); Carbon Dioxide 22 mmol/L (22-29); Chloride 107 mmol/L (96-108); Estimated Glomerular Filt Rate > 60; Glucose Random 96 mg/dL (60-115); Potassium 3.3 mmol/L (3.3-5.1); Sodium 140 mmol/L (135-145)
[2021-11-14 07:42] VITALS: BP 132/70; PULSE 65; RESP 16; O2SAT 96
[2021-11-14] MEDS: predniSONE 10 MG TABLET 30 MG PO (09:10)
[2021-11-14] MEDS: 0.9 % Sodium Chloride Flush 3 ML SYRINGE IVFLUSH ×2 (09:35→16:46)
--- NOTE | 2021-11-14 10:30 | PHA.PROG ---
Admission Date/Time: November 14, 2021 02:20 Indication: Bacteremia Weight in k kg Adjusted body weight in Kg: [place] body weight in Kg: Obesity Dosing Indication % IBW: Serum Creatinine - Last 168 Hours 11/13/21 11/14/21 16:05 06:46 Creatinine 0.72 0.61 Estimated CrCl and GFR - Last 168 Hours 11/13/21 11/14/21 16:05 06:46 Estim Creat Clear Calc 63.5 75.0 Estimated GFR > 60 > 60 Vancomycin Loading Dose: 1500mg X 1 Current Vancomycin Dosing Regimen: 1000mg Q24H Vancomycin Monitoring using AUC goal of 400 - 600 range with trough as surrogate marker: 418 mg/L Date and Time for next Vancomycin Level to be drawn: 11/16/21 @2100 Pharmacist Comments on Vancomycin Plan: May need to increase dose, will continue to monitor renal function Vancomycin dosing will take advantage of Re[employer] as a clinical decision support tool that uses Bayesian modeling to calculate individual patient's pharmacokinetic parameters and forecast the patient's drug concentration time course with the target goal AUC 24 range of 400 - 600 mg/L/hr.
[2021-11-14] MEDS: Acetaminophen 325 MG TABLET 650 MG PO ×2 (12:06→23:52)
--- NOTE | 2021-11-14 13:05 | MHC.CM.PN ---
met with pt who is independent covid vax x 3 has own ride home hcp filed home no sevrvices
--- NOTE | 2021-11-14 14:18 | PM.EVENT ---
Event Note Date of Service: 11/14/21 Event Note: 66-year-old female with a past medical history of GERD, hypothyroidism, chronic back pain, history of colon cancers status post chemotherapy/radiotherapy in 2011, chronic back pain status post spine surgery, recent history of COVID-19 infection in September 2021, seen at [facility] on 11/08 due to bilateral rib pain diagnosed to have costochondritis, subsequently underwent abdominal CT scan at [facility] that was concerning for inflammation around the pancreas lipase was 691 with a WBC count of 19,000 he was told to have pancreatitis and was recommended to be on a clear liquid diet patient came to [facility] on 11/12 for nausea vomiting and diarrhea, her labs showed elevated bili of 1.3, normal lipase of 9 urinalysis was unremarkable ultrasound revealed borderline dilatation of the common bile duct with no cholecystitis or cholelithiasis, CT abdomen and pelvis showed no acute abnormality she had blood cultures drawn that came back positive for gram-positive cocci therefore patient was called back to [facility] on 11/13 Staphylococci Bacteremia: question source of infection UA unremarkable CTA chest and chest x-ray showed no acute abnormality, CT abdomen showed no acute abscess or other infectious etiology Vitals currently stable Continue IV vancomycin patient complaining of lower back pain with radiation to left buttock and left leg for last 3 days, she status post fusion L4 L5/L5 S1 will obtain MRI lumbar spine, check echocardiogram await ID input Left eye blurry vision:? Improving per patient.? Initially presumed to be temporal arteritis-biopsy negative is on prednisone tapering dose, 30 mg for the 2 days followed by 20 mg 3 days and 10 mg 3 days Bilateral lower rib pain:? CT scan showed no acute findings Chronic low back pain:? Radiates down the leg.,check MRI lumbar spine, on Toradol as needed History of hypothyroidism: Continue levothyroxine History of GERD: continue PPI Microscopic hematuria:?Outpatient Urology follow-up, no urological symptoms DVT prophylaxis:? Lovenox Code status: Full code
--- NOTE | 2021-11-14 17:46 | PC.NURSE ---
PT in room resting quietly, no complain at the time. PT ambulates to BR independently.
[2021-11-14] MEDS: traMADoL HCL 50 MG TABLET PO (20:43)
--- NOTE | 2021-11-14 22:26 | P.CNID_ITS ---
History of Present Illness Data of Consult Service Date: 11/14/21 Requesting physician: Bam Emerson Primary Care Provider: Pollo Vo MD HPI Reason for consult: bacteremia She presents to hospital with chills and left rib discomfort,7/10 for two days. She has had temporal arteritis biopsy due to headache which she says was negative She reports two prior back surgery LS spine and has bilateral back pain. She has back pain radiating anteriorly and left leg pain going down buttock. PMFSH Past Medical History Medical History Chronic back pain Hypothyroidism Social History Social History Alcohol intake: never Patient Tobacco Use Status: Never used Tobacco Advance Directives: No service: No Meds Allergies Allergy/AdvReac Type Severity Reaction Status Date / Time Sulfa (Sulfonamide Allergy Unknown Verified 11/12/21 15:17 Antibiotics) morphine AdvReac Itching Verified 10/20/21 23:31 oxycodone AdvReac Vomiting Verified 11/12/21 15:17 Active Medications: Current Medications Acetaminophen (Acetaminophen 325 Mg Tablet) 650 mg PO Q6H PRN PRN Reason: Pain, Mild (Pain Scale 1-3) Last Admin: 11/14/21 12:06 Dose: 650 mg Enoxaparin Sodium (Enoxaparin Sodium 40 Mg/0.4 Ml Syringe) 40 mg SUBCUT BEDTIME [facility] Last Admin: 11/14/21 03:55 Dose: 40 mg Vancomycin HCl 1,000 mg/ (Sodium Chloride) 270 mls @ 270 mls/hr IV Q24H [facility] Levothyroxine Sodium (Levothyroxine Sodium 50 Mcg Tablet) 50 mcg PO DAILY@0630 [facility] Last Admin: 11/14/21 06:48 Dose: 50 mcg Melatonin (Melatonin 3 Mg Tablet) 6 mg PO BEDTIME PRN PRN Reason: Insomnia Pharmacy Consult (Consult Rx Vancomycin Dosing) 1 each MISCELLANE DAILY PRN PRN Reason: Consult order Prednisone (Prednisone 10 Mg Tablet) 30 mg PO DAILY [facility] Last Admin: 11/14/21 09:10 Dose: 30 mg Senna (Sennosides 8.6 Mg Tablet) 17.2 mg PO BEDTIME PRN PRN Reason: Constipation Sodium Chloride (0.9 % Sodium Chloride Flush 3 Ml Syringe) 3 ml IVFLUSH QSHIFT JOSE LUIS Last Admin: 11/14/21 16:46 Dose: 3 ml Tramadol HCl (Tramadol Hcl 50 Mg Tablet) 50 mg PO Q6H PRN PRN Reason: Pain, Severe (Pain Scale 7-10) Last Admin: 11/14/21 20:43 Dose: 50 mg Home Medications Medication Instructions Recorded Confirmed Last Taken Type levothyroxine 50 mcg capsule 50 mcg PO DAILY 11/14/21 11/14/21 Unknown History Physical Exam Vital Signs: Vital Signs: Last Vital Signs Temp 98.5 F 11/13/21 15:52 Pulse 65 11/14/21 07:42 Resp 16 11/14/21 07:42 BP 132/70 11/14/21 07:42 Pulse Ox 96 11/14/21 07:42 O2 Del Method 11/14/21 07:42 BMI result Body Mass Index 24.2 Const: General: cooperative HEENT: Head: Yes normal to inspection Face and sinus: Yes normal facial exam Mouth: Normal oral and palatal mucosa present Teeth and gingiva: dentition normal Eyes: General: appearance normal, both eyes and all related structures Pupils: Equal, round and reactive pupils present Resp: Effort & Inspection: normal respiratory effort Cardio: Rate: regular rate Rhythm: regular rhythm GI: Palpation (GI): Soft to palpation and nontender Back/Spine/Pelvis: Back: back tenderness Skin: General skin exam: no rashes or lesions noted Neuro: General: moves all extremities Cranial nerves: Yes Equal, round and reactive pupils present Extrem: General: Yes normal to inspection Psych: Appearance: grossly normal Results Labs CBC & Chem 7: 11/14/21 06:46 11/14/21 06:46 Labs: Short CBC 11/14/21 Range/Units 06:46 WBC 13.4 H (4.8-10.8) X10*3/uL Hgb 9.4 L (12.0-16.0) g/dl Hct 27.7 L D (37.0-47.0) % Plt Count 278 (160-400) X10*3/uL BMP 11/14/21 06:46 Sodium 140 Potassium 3.3 Chloride 107 Carbon Dioxide 22 BUN 17 H Creatinine 0.61 Calcium 7.5 L D Microbiology Microbiology Results: Microbiology 11/14/21 01:17 Blood - Venous Blood Culture - Preliminary Prelim: GPC Gram Stain only 11/13/21 22:42 Blood - Venous Blood Culture - Preliminary Prelim: GPC Gram Stain only Assessment and Plan (1) Bacteremia: Status: Acute Staph aureus bacteremia source has not been realized. She may have endocarditis. She may have osteomyelitis spine Plan Can get bone scan or plain CT scan evaluate for osteomyelitis spine. Check echo evaluate endocarditis. Continue Vancomycin for now.
[2021-11-14 23:34] VITALS: BP 115/59; PULSE 65; RESP 18; TEMP 36.8; O2SAT 97
[2021-11-14] MEDS: Melatonin 3 MG TABLET 6 MG PO (23:52)
[2021-11-14] MEDS: vancomycin HCL 1,000 MG in 0.9 % Sodium Chloride 250 ML 270 MG IV (23:55)
[2021-11-15] MEDS: Enoxaparin Sodium 40 MG/0.4 ML SYRINGE SUBCUT ×2 (01:19→21:46)
[2021-11-15] MEDS: traMADoL HCL 50 MG TABLET PO ×3 (02:48→21:46)
[2021-11-15 03:48] VITALS: BP 120/66; PULSE 59; RESP 18; O2SAT 96
[2021-11-15] MEDS: Acetaminophen 325 MG TABLET 650 MG PO (06:18)
[2021-11-15] MEDS: Levothyroxine Sodium 50 MCG TABLET PO (06:18)
[2021-11-15 06:46] LABS: Estimated Glomerular Filt Rate > 60
--- NOTE | 2021-11-15 07:08 | PHA.MEDREC ---
Pharmacy Consult ? Medication Reconciliation Pharmacy has completed the medication reconciliation. Med rec done by RN, reviewed by pharmacy. Thanks Javi
--- NOTE | 2021-11-15 07:55 | HE.PHANOTE ---
Vancomycin Addendum Renal function is stable. Continue current regimen, vanco 1000 mg Q24H. Trough to be drawn 11/16/21 @ 2100. Sid VenturaD
[2021-11-15] MEDS: 0.9 % Sodium Chloride Flush 3 ML SYRINGE IVFLUSH ×2 (08:14→21:47)
[2021-11-15 09:19] VITALS: BP 139/57; PULSE 62; RESP 12; O2SAT 96
[2021-11-15] MEDS: predniSONE 20 MG TABLET 60 MG PO (11:47)
--- NOTE | 2021-11-15 12:43 | P.PNIM_ITS ---
Subjective Subjective Date of Service: 11/16/21 Interval History: patient overall feeling better this morning, still with left lower back pain with radiation to left leg denies left lower extremity weakness, no urinary or bowel incontinence, no fevers no chills Review of Systems [employer] no headache, no dizziness CVS no chest pain, no palpitation GI no nausea no vomiting no constipation no urinary frequency, no urgency Review of Systems: Yes all other systems are reviewed and are negative Physical Exam Vital Signs: Vital Signs: Last Vital Signs Temp 98.2 F 11/14/21 23:34 Pulse 62 11/15/21 09:19 Resp 12 11/15/21 09:19 BP 139/57 L 11/15/21 09:19 Pulse Ox 96 11/15/21 09:19 O2 Del Method 11/15/21 09:19 BMI result Body Mass Index 24.2 Const: Other: General awake alert x3, in no acute distress. Neck supple no JVD. CVS regular rate rhythm, Respiratory lungs clear to auscultation, no respiratory distress, no wheeze, no rhonchi. Gastrointestinal abdomen soft, nontender, bowel sounds audible, no guarding , no rigidity. Extremities no edema. Lower back no tenderness over lumbar spine, left lower buttock tenderness to palpation, no redness, no swelling Neuro nonfocal, chronically decreased sensation lower extremities, unchanged Skin no rash Objective Data Active Medications Acetaminophen (Acetaminophen 325 Mg Tablet) 650 mg PO Q6H PRN PRN Reason: Pain, Mild (Pain Scale 1-3) Last Admin: 11/15/21 06:18 Dose: 650 mg Documented By: RUPALI Enoxaparin Sodium (Enoxaparin Sodium 40 Mg/0.4 Ml Syringe) 40 mg SUBCUT BEDTIME [facility] Last Admin: 11/15/21 01:19 Dose: 40 mg Documented By: RUPALI Vancomycin HCl 1,000 mg/ (Sodium Chloride) 270 mls @ 270 mls/hr IV Q24H [facility] Last Infusion: 11/15/21 01:00 Dose: 0 mls/hr Documented By: RUPALI Levothyroxine Sodium (Levothyroxine Sodium 50 Mcg Tablet) 50 mcg PO DAILY@0630 [facility] Last Admin: 11/15/21 06:18 Dose: 50 mcg Documented By: RUPALI Melatonin (Melatonin 3 Mg Tablet) 6 mg PO BEDTIME PRN PRN Reason: Insomnia Last Admin: 11/14/21 23:52 Dose: 3 mg Documented By: RUPALI Omeprazole (Omeprazole 20 Mg Capsule.) 20 mg PO DAILY@0630 [facility] Pharmacy Consult (Consult Rx Vancomycin Dosing) 1 each MISCELLANE DAILY PRN PRN Reason: Consult order Prednisone (Prednisone 20 Mg Tablet) 40 mg PO DAILY [facility] Stop: 11/18/21 09:01 Prednisone (Prednisone 20 Mg Tablet) 20 mg PO DAILY [facility] Stop: 11/21/21 09:01 Senna (Sennosides 8.6 Mg Tablet) 17.2 mg PO BEDTIME PRN PRN Reason: Constipation Sodium Chloride (0.9 % Sodium Chloride Flush 3 Ml Syringe) 3 ml IVFLUSH QSHIFT [facility] Last Admin: 11/15/21 08:14 Dose: 3 ml Documented By: DENISSE Tizanidine HCl (Tizanidine Hcl 4 Mg Tablet) 4 mg PO DAILY PRN PRN Reason: MUSCLE SPASMS Tramadol HCl (Tramadol Hcl 50 Mg Tablet) 50 mg PO Q6H PRN PRN Reason: Pain, Severe (Pain Scale 7-10) Last Admin: 11/15/21 10:41 Dose: 50 mg Documented By: KAN Labs CBC & Chem 7: 11/14/21 06:46 11/16/21 06:42 Labs: Laboratory Results - last 24 hr 11/15/21 06:09 Estim Creat Clear Calc 75.0 Estimated GFR > 60 Microbiology Microbiology Results: Microbiology 11/13/21 22:42 Blood Culture - Preliminary Blood - Venous Staphylococcus species 11/14/21 01:17 Blood Culture - Preliminary Blood - Venous Staphylococcus species Assessment and Plan (1) Bacteremia: Status: Acute Plan 66-year-old female with a past medical history of GERD, hypothyroidism, chronic back pain, history of colon cancers status post chemotherapy/radiotherapy in 2011, chronic back pain status post spine surgery, recent history of COVID-19 infection in September 2021; presented to the hospital today with a chief complaint of Positive blood cultures.? Staphylococcus Bacteremia: initial Blood cultures x2 grew Staph coccus aureus, repeat blood cultures growing Gram-positive cocci no source of infection found Continue IV vancomycin CT abdomen and pelvis showed moderate constipation without obstruction no other acute abnormality noted, UA negative, chest x-ray benign, Skin no redness Echocardiogram showed no vegetation, Ceretec scan ordered, follow clinical course WBC trending down, no fevers ESR 90 Left eye blurry vision:? Improving per patient.? Initially presumed to be temporal arteritis-biopsy negative, continue prednisone taper as per PCP.? Bilateral lower rib pain:? CT scan showed no acute findings, chest x-ray showed no acute intrathoracic disease. Acute on Chronic low back pain: status post fusion L4 L5/L5 S1, MRI not done due to metal lower back will obtain Ceretec bone rule out osteomyelitis spine History of hypothyroidism: Continue levothyroxine History of GERD: Ppi Microscopic hematuria:?Outpatient Urology follow-up DVT prophylaxis:? Lovenox Code status: Full code patient will need continued inpatient hospitalization due to persistent bacteremia on IV antibiotic workup in progress to find source of infection. Quality Stroke Does the patient have a stroke diagnosis?: No VTE Prior VTE?: No VTE Risk Level:: Medical - moderate - high VTE Device Contraindication: Treatment Not Indicated VTE Drug Contraindication: N/A - Med Ordered
[2021-11-15 13:23] VITALS: BP 132/68; PULSE 68; RESP 14; O2SAT 95
--- NOTE | 2021-11-15 14:04 | PC.NURSE ---
Report given to [facility] PAUL Whitaker
[2021-11-15 14:43] VITALS: BP 133/87; PULSE 73; RESP 20; TEMP 36.7; O2SAT 96
[2021-11-15 15:42] VITALS: BP 153/72; PULSE 67; RESP 18; TEMP 37; O2SAT 97
[2021-11-15] MEDS: Melatonin 3 MG TABLET 6 MG PO (21:46)
[2021-11-15] MEDS: vancomycin HCL 1,250 MG in 0.9 % Sodium Chloride 250 ML 166.67 MG IV (21:47)
[2021-11-15 23:38] VITALS: BP 131/58; PULSE 59; RESP 20; TEMP 36.9; O2SAT 94
[2021-11-16 03:54] VITALS: BP 131/60; PULSE 54; RESP 20; TEMP 36.2; O2SAT 95
[2021-11-16] MEDS: traMADoL HCL 50 MG TABLET PO ×3 (05:24→21:06)
[2021-11-16] MEDS: Omeprazole 20 MG CAPSULE.DR PO (05:24)
[2021-11-16] MEDS: Levothyroxine Sodium 50 MCG TABLET PO (05:24)
[2021-11-16 07:27] LABS: Creatinine Clr Calc Pharmacy 84.7; Estimated Glomerular Filt Rate > 60
[2021-11-16 07:38] VITALS: BP 167/69; PULSE 61; RESP 20; TEMP 35.9; O2SAT 96
[2021-11-16] MEDS: predniSONE 20 MG TABLET 40 MG PO (08:56)
[2021-11-16] MEDS: 0.9 % Sodium Chloride Flush 3 ML SYRINGE IVFLUSH ×2 (08:57→15:05)
--- NOTE | 2021-11-16 11:27 | P.PNIM_ITS ---
Subjective Subjective Date of Service: 11/16/21 Interval History: complaining of persistent left buttock pain with radiation to left leg, denies weakness numbness, denies fever chills no other acute issues overnight. Review of Systems [employer] no headache no dizziness CVS no chest pain, no palpitation GI no nausea no vomiting no diarrhea Review of Systems: Yes all other systems are reviewed and are negative Physical Exam Vital Signs: Vital Signs: Last Vital Signs Temp 96.7 F L 11/16/21 07:38 Pulse 61 11/16/21 07:38 Resp 20 11/16/21 07:38 BP 167/69 H 11/16/21 07:38 Pulse Ox 96 11/16/21 07:38 O2 Del Method 11/16/21 07:38 BMI result Body Mass Index 24.2 Const: Other: 66-year-old female with a past medical history of GERD, hypothyroidism, chronic back pain, history of colon cancers status post chemotherapy/radiotherapy in 2011, chronic back pain status post spine surgery, recent history of COVID-19 infection in September 2021; presented to the hospital today with a chief complaint of Positive blood cultures.? Staphylococcus Bacteremia: Blood cultures?x2 from 11/13 and 11/14 positive for MRSA no source of infection found Continue IV vancomycin, clinically patient feeling better no fevers WBC trending down CT abdomen and pelvis showed moderate constipation without obstruction no other acute abnormality noted, UA negative, chest x-ray benign, Skin no redness Echocardiogram showed no vegetation, Ceretec scan showed no osteomyelitis follow vanco trough and renal function will discuss with ID regarding further testing, repeat blood cultures Left eye blurry vision:? Improving per patient.? Initially presumed to be temporal arteritis-biopsy negative, continue prednisone taper as per PCP.? Bilateral lower rib pain:? CT scan showed no acute findings, chest x-ray showed no acute intrathoracic disease. Acute on Chronic low back pain: status post fusion L4 L5/L5 S1, Ceretec bone rule out osteomyelitis spine History of hypothyroidism: Continue levothyroxine History of GERD: Ppi Microscopic hematuria:?Outpatient Urology follow-up DVT prophylaxis:? Lovenox Code status: Full code ?patient will need continued inpatient hospitalization due to persistent bacteremia on IV antibiotic workup in progress to find source of infection. Objective Data Active Medications Acetaminophen (Acetaminophen 325 Mg Tablet) 650 mg PO Q6H PRN PRN Reason: Pain, Mild (Pain Scale 1-3) Last Admin: 11/15/21 06:18 Dose: 650 mg Documented By: RUPALI Diphenhydramine HCl (Diphenhydramine Hcl 25 Mg Tablet) 25 mg PO Q6H PRN PRN Reason: Itching Enoxaparin Sodium (Enoxaparin Sodium 40 Mg/0.4 Ml Syringe) 40 mg SUBCUT BEDTIME REPLACED BY [facility] Last Admin: 11/15/21 21:46 Dose: 40 mg Documented By: GENESIS Vancomycin HCl 1,250 mg/ (Sodium Chloride) 250 mls @ 166.667 mls/hr IV Q24H REPLACED BY [facility] Last Infusion: 11/15/21 23:45 Dose: 0 mls/hr Documented By: GENESIS Levothyroxine Sodium (Levothyroxine Sodium 50 Mcg Tablet) 50 mcg PO DAILY@0630 REPLAC[facility] BY [facility] Last Admin: 11/16/21 05:24 Dose: 50 mcg Documented By: GENESIS Melatonin (Melatonin 3 Mg Tablet) 6 mg PO BEDTIME PRN PRN Reason: Insomnia Last Admin: 11/15/21 21:46 Dose: 6 mg Documented By: GENESIS Omeprazole (Omeprazole 20 Mg Capsule.) 20 mg PO DAILY@629 [facility]PLACED BY [facility] Last Admin: 11/16/21 05:24 Dose: 20 mg Documented By: GENESIS Pharmacy Consult (Consult Rx Vancomycin Dosing) 1 each MISCELLANE DAILY PRN PRN Reason: Consult order Prednisone (Prednisone 20 Mg Tablet) 40 mg PO DAILY REPLACED BY [facility] Stop: 11/18/21 09:01 Last Admin: 11/16/21 08:56 Dose: 40 mg Documented By: OLAMIDE Prednisone (Prednisone 20 Mg Tablet) 20 mg PO DAILY REPLACED BY [facility] Stop: 11/21/21 09:01 Senna (Sennosides 8.6 Mg Tablet) 17.2 mg PO BEDTIME PRN PRN Reason: Constipation Sodium Chloride (0.9 % Sodium Chloride Flush 3 Ml Syringe) 3 ml IVFLUSH QSHIFT REPLACED BY [facility] Last Admin: 11/16/21 08:57 Dose: 3 ml Documented By: OLAMIDE Tizanidine HCl (Tizanidine Hcl 4 Mg Tablet) 4 mg PO DAILY PRN PRN Reason: MUSCLE SPASMS Tramadol HCl (Tramadol Hcl 50 Mg Tablet) 50 mg PO Q6H PRN PRN Reason: Pain, Severe (Pain Scale 7-10) Last Admin: 11/16/21 05:24 Dose: 50 mg Documented By: GENESIS Labs CBC & Chem 7: 11/14/21 06:46 11/16/21 06:42 Labs: Laboratory Results - last 24 hr 11/16/21 06:42 Estim Creat Clear Calc 84.7 Estimated GFR > 60 Microbiology Microbiology Results: Microbiology 11/14/21 01:17 Blood Culture - Final Blood - Venous Methicillin Res Staph Aureus 11/13/21 22:42 Blood Culture - Final Blood - Venous Methicillin Res Staph Aureus Quality Stroke Does the patient have a stroke diagnosis?: No VTE Prior VTE?: No VTE Risk Level:: Medical - moderate - high VTE Device Contraindication: Treatment Not Indicated VTE Drug Contraindication: N/A - Med Ordered
[2021-11-16] MEDS: diphenhydrAMINE HCL 25 MG TABLET PO (11:38)
[2021-11-16 12:00] VITALS: BP 126/59; PULSE 64; RESP 20; TEMP 35.7; O2SAT 96
--- NOTE | 2021-11-16 13:49 | MHC.CM.PN ---
Per ROUNDS discussion, Patient is having a Bone Scan today and is not yet medically cleared for dc. Home is the goal and CM will continue to follow.
[2021-11-16 15:38] VITALS: BP 132/63; PULSE 70; RESP 14; TEMP 37.2
[2021-11-16 19:42] VITALS: BP 137/62; PULSE 68; RESP 17; TEMP 36.3; O2SAT 98
[2021-11-16] MEDS: Enoxaparin Sodium 40 MG/0.4 ML SYRINGE SUBCUT (21:04)
[2021-11-16] MEDS: vancomycin HCL 1,250 MG in 0.9 % Sodium Chloride 250 ML 166 MG IV (21:04)
[2021-11-16] MEDS: Sennosides 8.6 MG TABLET 17.2 MG PO (21:09)
[2021-11-16 21:37] LABS: Vancomycin Trough 5.5 mcg/mL (10.0-20.0)
--- NOTE | 2021-11-16 21:47 | HE.PHANOTE ---
[vanco addendum] Trough on 11/16 came back at 5.5; increased dose to 1250mg Q12H with predicted AUC of 572mg/L. Will get another level 11/18 @0700
[2021-11-16 23:31] VITALS: BP 144/86; PULSE 89; RESP 18; TEMP 37; O2SAT 98
[2021-11-17] MEDS: 0.9 % Sodium Chloride Flush 3 ML SYRINGE IVFLUSH ×3 (00:36→17:16)
[2021-11-17 03:34] VITALS: BP 133/63; PULSE 65; RESP 20; TEMP 36.4; O2SAT 95
[2021-11-17] MEDS: Omeprazole 20 MG CAPSULE.DR PO (05:51)
[2021-11-17] MEDS: Levothyroxine Sodium 50 MCG TABLET PO (05:51)
[2021-11-17 06:42] LABS: Creatinine Clr Calc Pharmacy 70.4; Estimated Glomerular Filt Rate > 60
--- NOTE | 2021-11-17 07:20 | HE.PHANOTE ---
Vancomycin Dosing Addendum, Patient had a slight increase in SCr. Current regimen 1250 mg Q12H was expected to subpratherapeutic with an AUC > 600. Will decrease dose to 1000 mg Q12H starting 11/17 @ 0900. Now expected AUC is 529 with a trough of 15.6. Next trough to be drawn 11/18 @ 0700. Vicki Hobbs, SidD
[2021-11-17 07:39] VITALS: BP 148/68; PULSE 73; RESP 20; TEMP 36.6; O2SAT 98
[2021-11-17 08:38] LABS: Hematocrit 35.4 % (37.0-47.0); Hemoglobin 11.5 g/dl (12.0-16.0); Mean Corpuscular HGB Conc 32.5 g/dl (31.0-35.0); Mean Corpuscular Hemoglobin 29.3 pg (27.0-33.0); Mean Corpuscular Volume 90.1 fL (80.0-98.0); Mean Platelet Volume 8.8 fL (9.4-12.3); Platelet Count 534 X10*3/uL (160-400); Red Blood Count 3.93 X10*6/uL (4.20-5.50); Red Cell Distribution Width 14.3 % (11.0-16.0); White Blood Count 20.7 X10*3/uL (4.8-10.8)
[2021-11-17 09:02] LABS: Anion Gap 18 (12-20); Blood Urea Nitrogen 12 mg/dL (9-16); Calcium 8.8 mg/dL (8.4-10.2); Carbon Dioxide 28 mmol/L (22-29); Chloride 98 mmol/L (96-108); Glucose Random 75 mg/dL (60-115); Potassium 4.2 mmol/L (3.3-5.1); Sodium 140 mmol/L (135-145)
[2021-11-17] MEDS: predniSONE 20 MG TABLET 40 MG PO (09:13)
[2021-11-17] MEDS: traMADoL HCL 50 MG TABLET PO (09:13)
[2021-11-17] MEDS: vancomycin HCL 1,000 MG in 0.9 % Sodium Chloride 250 ML 270 MG IV ×2 (09:13→20:54)
[2021-11-17 11:40] VITALS: BP 149/74; PULSE 86; RESP 18; TEMP 36.6; O2SAT 96
[2021-11-17 15:25] VITALS: BP 121/60; PULSE 90; RESP 17; TEMP 37.1; O2SAT 96
--- NOTE | 2021-11-17 16:25 | P.PNIM_ITS ---
Subjective Subjective Date of Service: 11/17/21 Interval History: complaining of lack of sleep melatonin not helping, denies recurrent fever chills persistent right buttock discomfort no worsening symptoms no new weakness numbness no urinary or bowel incontinence, no lightheadedness no dizziness noted to have rash right buttock now fading. Patient tolerating diet with no nausea no vomiting no diarrhea. Review of Systems Review of Systems: Yes all other systems are reviewed and are negative Physical Exam Vital Signs: Vital Signs: Last Vital Signs Temp 98.7 F 11/17/21 15:25 Pulse 90 11/17/21 15:25 Resp 17 11/17/21 15:25 BP 121/60 11/17/21 15:25 Pulse Ox 96 11/17/21 15:25 O2 Del Method 11/17/21 15:25 BMI result Body Mass Index 24.2 Const: Other: General? awake alert x3, in no acute distress.? Neck? supple no JVD. CVS? regular rate rhythm, Respiratory lungs clear to auscultation, no respiratory distress, no wheeze, no rhonchi. Gastrointestinal abdomen soft, nontender, bowel sounds audible, no guarding , no rigidity. Extremities no edema. Lower back no tenderness over lumbar spine, left lower buttock? tenderness to palpation, no redness, no swelling Neuro nonfocal,? chronically decreased sensation lower extremities, unchanged Skin right buttock medially to areas of dry rash, no drainage. Objective Data Active Medications Acetaminophen (Acetaminophen 325 Mg Tablet) 650 mg PO Q6H PRN PRN Reason: Pain, Mild (Pain Scale 1-3) Last Admin: 11/15/21 06:18 Dose: 650 mg Documented By: RUPALI Diphenhydramine HCl (Diphenhydramine Hcl 25 Mg Tablet) 25 mg PO Q6H PRN PRN Reason: Itching Last Admin: 11/16/21 11:38 Dose: 25 mg Documented By: OLAMIDE Enoxaparin Sodium (Enoxaparin Sodium 40 Mg/0.4 Ml Syringe) 40 mg SUBCUT BEDTIME [facility] Last Admin: 11/16/21 21:04 Dose: 40 mg Documented By: GIOVANNI Vancomycin HCl 1,000 mg/ (Sodium Chloride) 270 mls @ 270 mls/hr IV Q12H [facility] Last Infusion: 11/17/21 10:41 Dose: 0 mls/hr Documented By: GLENN Levothyroxine Sodium (Levothyroxine Sodium 50 Mcg Tablet) 50 mcg PO DAILY@629 [facility] Last Admin: 11/17/21 05:51 Dose: 50 mcg Documented By: GIOVANNI Melatonin (Melatonin 3 Mg Tablet) 6 mg PO BEDTIME PRN PRN Reason: Insomnia Last Admin: 11/15/21 21:46 Dose: 6 mg Documented By: GENESIS Omeprazole (Omeprazole 20 Mg Capsule.Dr) 20 mg PO DAILY@629 [facility] Last Admin: 11/17/21 05:51 Dose: 20 mg Documented By: GIOVANNI Pharmacy Consult (Consult Rx Vancomycin Dosing) 1 each MISCELLANE DAILY PRN PRN Reason: Consult order Prednisone (Prednisone 20 Mg Tablet) 40 mg PO DAILY [facility] Stop: 11/18/21 09:01 Last Admin: 11/17/21 09:13 Dose: 40 mg Documented By: GLENN Prednisone (Prednisone 20 Mg Tablet) 20 mg PO DAILY [facility] Stop: 11/21/21 09:01 Senna (Sennosides 8.6 Mg Tablet) 17.2 mg PO BEDTIME PRN PRN Reason: Constipation Last Admin: 11/16/21 21:09 Dose: 17.2 mg Documented By: GIOVANNI Sodium Chloride (0.9 % Sodium Chloride Flush 3 Ml Syringe) 3 ml [facility] Last Admin: 11/17/21 09:13 Dose: 3 ml Documented By: GLENN Tizanidine HCl (Tizanidine Hcl 4 Mg Tablet) 4 mg PO DAILY PRN PRN Reason: MUSCLE SPASMS Tramadol HCl (Tramadol Hcl 50 Mg Tablet) 50 mg PO Q6H PRN PRN Reason: Pain, Severe (Pain Scale 7-10) Last Admin: 11/17/21 09:13 Dose: 50 mg Documented By: GLENN Labs CBC & Chem 7: 11/17/21 08:06 11/17/21 06:05 Labs: Laboratory Results - last 24 hr 11/16/21 11/17/21 11/17/21 21:03 06:05 08:06 MCV 90.1 MCH 29.3 MCHC 32.5 RDW 14.3 Plt Count 534 H D MPV 8.8 L Absolute Nucleated RBC 0.000 Nucleated RBC % (auto) 0.0 Anion Gap 18 Estim Creat Clear Calc 70.4 Estimated GFR > 60 Random Glucose 75 Calcium 8.8 D Vancomycin Trough 5.5 L Microbiology Microbiology Results: Microbiology 11/16/21 11:59 Blood Culture - Preliminary Blood - Venous No growth after 24 hours. 11/16/21 11:59 Blood Culture - Preliminary Blood - Venous No growth after 24 hours. Assessment and Plan (1) Bacteremia: Status: Acute Plan 66-year-old female with a past medical history of GERD, hypothyroidism, chronic back pain, history of colon cancers status post chemotherapy/radiotherapy in 2011, chronic back pain status post spine surgery, recent history of COVID-19 infection in September 2021; presented to the hospital today with a chief complaint of Positive blood cultures.? Staphylococcus Bacteremia: Blood cultures?x2? from 11/13 and 11/14 positive for MRSA, blood cultures x2 from 11/16 showed no growth times 24 hours Continue IV vancomycin, clinically patient feeling better no fevers ,WBC trended up to 20,000 today likely due to steroids CT abdomen and pelvis showed moderate constipation without obstruction no other acute abnormality noted, UA negative, chest x-ray benign, Skin no redness Echocardiogram showed no vegetation, Ceretec scan? showed? no osteomyelitis as per patient she had few red lesions right buttock that have now improved on examination right buttock dry scabs no surrounding induration, no tenderness questions source of infection follow vanco trough and renal function will discuss with ID regarding further testing, and duration of antibiotic Left eye blurry vision:? Improving per patient.? Initially presumed to be temporal arteritis-biopsy negative, continue prednisone taper as per PCP.? Bilateral lower rib pain:? CT scan showed no acute findings, chest x-ray showed no acute intrathoracic disease. Acute on Chronic low back pain: status post fusion L4 L5/L5 S1, Ceretec bone showed no osteomyelitis spine History of hypothyroidism: Continue levothyroxine History of GERD: Ppi Microscopic hematuria:?Outpatient Urology follow-up constipation will add stool softeners insomnia will place on trazodone DVT prophylaxis:? Lovenox Code status: Full code patient will need continued inpatient hospitalization due bacteremia on IV antibiotic ? Quality Stroke Does the patient have a stroke diagnosis?: No VTE Prior VTE?: No VTE Risk Level:: Medical - moderate - high VTE Device Contraindication: Treatment Not Indicated VTE Drug Contraindication: N/A - Med Ordered
[2021-11-17] MEDS: polyethylene glycoL 3350 17 GM POWD.PACK PO (17:16)
[2021-11-17] MEDS: Docusate Sodium 100 MG CAPSULE 200 MG PO (20:54)
[2021-11-17] MEDS: Enoxaparin Sodium 40 MG/0.4 ML SYRINGE SUBCUT (20:54)
[2021-11-17] MEDS: traZODone HCL 25 MG HALFTAB PO (20:54)
[2021-11-18] VITALS (7 sets, daily range): BP systolic 110–151; BP diastolic 56–87; PULSE 68–93; RESP 16–20; TEMP 36.7–37.1; O2SAT 95–100
[2021-11-18] MEDS: 0.9 % Sodium Chloride Flush 3 ML SYRINGE IVFLUSH ×4 (03:21→21:03)
[2021-11-18] MEDS: Omeprazole 20 MG CAPSULE.DR PO (05:48)
[2021-11-18] MEDS: Levothyroxine Sodium 50 MCG TABLET PO (05:48)
[2021-11-18] MEDS: traMADoL HCL 50 MG TABLET PO (05:48)
[2021-11-18 08:39] LABS: Creatinine Clr Calc Pharmacy 69.3; Estimated Glomerular Filt Rate > 60
[2021-11-18 08:52] LABS: Vancomycin Trough 12.2 mcg/mL (10.0-20.0)
--- NOTE | 2021-11-18 09:00 | HE.PHANOTE ---
Vancomycin Dosing Addendum Patient trough today is 12.2. Continue current regimen vanco 1000 mg Q12H. Expected AUC 500 with a trough of 14.2. Next trough 11/19 @ 1900. Vicki Hobbs PharmD
[2021-11-18] MEDS: vancomycin HCL 1,000 MG in 0.9 % Sodium Chloride 250 ML 270 MG IV ×2 (10:41→21:03)
[2021-11-18] MEDS: predniSONE 20 MG TABLET 40 MG PO (10:41)
[2021-11-18] MEDS: Sennosides 8.6 MG TABLET 17.2 MG PO (10:59)
--- NOTE | 2021-11-18 11:32 | MHC.CM.PN ---
Per ROUNDS discussion, Patient will be dc to home on 4 weeks of IV ABT(IV Vanco). A broad VNA search has been initiated to try to find a VNA that accepts [employer] and a referral has been made to [facility]. Patient is anticipated to get the PICC today. CM will follow.
--- NOTE | 2021-11-18 14:25 | P.PNIM_ITS ---
Subjective Subjective Date of Service: 11/18/21 Interval History: Feeling significantly better, less back pain sitting on chair no recurrent fevers no chills no other acute issues overnight, tolerating diet with no nausea, no vomiting, no diarrhea. Review of Systems Review of Systems: Yes all other systems are reviewed and are negative Physical Exam Vital Signs: Vital Signs: Last Vital Signs Temp 98.1 F 11/18/21 11:15 Pulse 93 11/18/21 11:15 Resp 18 11/18/21 11:15 BP 110/56 L 11/18/21 11:15 Pulse Ox 95 11/18/21 11:15 O2 Del Method 11/18/21 11:15 BMI result Body Mass Index 24.2 Const: Other: General? awake eduardo rt x3, in no acute distress.? Neck? supple no JVD. CVS ? regular rate rhy thm, Respiratory l ungs clear to ausc ultation, no respi ratory distress, n o wheeze, no rhonc hi. Gastrointestin al abdomen soft, n ontender, bowel so unds audible, no g uarding , no rigid ity. Extremities n o edema. Lower natanael k no tenderness ov er lumbar spine, l ess left lower but tock tenderness to palpation, no red ness, no swelling Neuro nonfocal,? c hronically decreas ed sensation lower extremities, unch anged Skin? right buttock medially t wo areas of dry ra sh, no drainage. Objective Data Active Medications Acetaminophen (Acetaminophen 325 Mg Tablet) 650 mg PO Q6H PRN PRN Reason: Pain, Mild (Pain Scale 1-3) Last Admin: 11/15/21 06:18 Dose: 650 mg Documented By: RUPALI Diphenhydramine HCl (Diphenhydramine Hcl 25 Mg Tablet) 25 mg PO Q6H PRN PRN Reason: Itching Last Admin: 11/16/21 11:38 Dose: 25 mg Documented By: OLAMIDE Docusate Sodium (Docusate Sodium 100 Mg Capsule) 200 mg PO BEDTIME [facility] Last Admin: 11/17/21 20:54 Dose: 200 mg Documented By: GIOVANNI Enoxaparin Sodium (Enoxaparin Sodium 40 Mg/0.4 Ml Syringe) 40 mg SUBCUT BEDTIME [facility] Last Admin: 11/17/21 20:54 Dose: 40 mg Documented By: GIOVANNI Vancomycin HCl 1,000 mg/ (Sodium Chloride) 270 mls @ 270 mls/hr IV Q12H [facility] Last Infusion: 11/18/21 12:41 Dose: 0 mls/hr Documented By: MIKAELA Levothyroxine Sodium (Levothyroxine Sodium 50 Mcg Tablet) 50 mcg PO DAILY@0630 [facility] Last Admin: 11/18/21 05:48 Dose: 50 mcg Documented By: GOIVANNI Melatonin (Melatonin 3 Mg Tablet) 6 mg PO BEDTIME PRN PRN Reason: Insomnia Last Admin: 11/15/21 21:46 Dose: 6 mg Documented By: GENESIS Omeprazole (Omeprazole 20 Mg Capsule.Dr) 20 mg PO DAILY@629 [facility] Last Admin: 11/18/21 05:48 Dose: 20 mg Documented By: GIOVANNI Pharmacy Consult (Consult Rx Vancomycin Dosing) 1 each MISCELLANE DAILY PRN PRN Reason: Consult order Polyethylene Glycol (Polyethylene Glycol 3350 17 Gm Powd.Pack) 17 gm PO DAILY [facility] Last Admin: 11/18/21 10:42 Dose: Not Given Documented By: MIKAELA Non-Admin Reason: Patient Refused Prednisone (Prednisone 20 Mg Tablet) 20 mg PO DAILY [facility] Stop: 11/21/21 09:01 Senna (Sennosides 8.6 Mg Tablet) 17.2 mg PO BEDTIME PRN PRN Reason: Constipation Last Admin: 11/18/21 10:59 Dose: 17.2 mg Documented By: MIKAELA Sodium Chloride (0.9 % Sodium Chloride Flush 3 Ml Syringe) 3 ml IVFLUSH QSHIFT [facility] Last Admin: 11/18/21 10:42 Dose: 3 ml Documented By: MIKAELA Tizanidine HCl (Tizanidine Hcl 4 Mg Tablet) 4 mg PO DAILY PRN PRN Reason: MUSCLE SPASMS Tramadol HCl (Tramadol Hcl 50 Mg Tablet) 50 mg PO Q6H PRN PRN Reason: Pain, Severe (Pain Scale 7-10) Last Admin: 11/18/21 05:48 Dose: 50 mg Documented By: GIOVANNI Trazodone HCl (Trazodone Hcl 25 Mg Halftab) 25 mg PO BEDTIME [facility] Last Admin: 11/17/21 20:54 Dose: 25 mg Documented By: GUANAKOJ Labs CBC & Chem 7: 11/17/21 08:06 11/18/21 08:10 Labs: Laboratory Results - last 24 hr 11/18/21 11/18/21 08:10 08:10 Estim Creat Clear Calc 69.3 Estimated GFR > 60 Vancomycin Trough 12.2 Microbiology Microbiology Results: Microbiology 11/16/21 11:59 Blood Culture - Preliminary Blood - Venous No growth after 48 hours. 11/16/21 11:59 Blood Culture - Preliminary Blood - Venous No growth after 48 hours. Assessment and Plan (1) Bacteremia: Status: Acute Plan 66-year-old female with a past medical history of GERD, hypothyroidism, chronic back pain, history of colon cancers status post chemotherapy/radiotherapy in 2011, chronic back pain status post spine surgery, recent history of COVID-19 infection in September 2021; presented to the hospital today with a chief complaint of Positive blood cultures.? Staphylococcus Bacteremia: Blood cultures?x2? from 11/13 and 11/14 positive for MRSA, blood cultures x2 from 11/16 showed no growth > 24 hours Continue IV vancomycin, clinically patient feeling better no fevers ,WBC 20,000 likely due to steroids CT abdomen and pelvis showed moderate constipation without obstruction no other acute abnormality noted, UA negative, chest x-ray benign, Echocardiogram showed no vegetation, Ceretec scan? showed? no osteomyelitis bacteremia likely related to skin infection, had few red lesions right buttock case discussed with ID she recommend 4 weeks of IV vancomycin will place PICC line after blood cultures are negative for 48 hours and arrange for home Vanco Left eye blurry vision:? Improving per patient.? Initially presumed to be temporal arteritis-biopsy negative, continue prednisone taper as per PCP.? Bilateral lower rib pain:? CT scan showed no acute findings, chest x-ray showed no acute intrathoracic disease. Acute on Chronic low back pain: status post fusion L4 L5/L5 S1, Ceretec bone showed no osteomyelitis spine History of hypothyroidism: Continue levothyroxine History of GERD: Ppi Microscopic hematuria:?Outpatient Urology follow-up constipation cont. stool softeners insomnia started on trazodone with good effect DVT prophylaxis:? Lovenox Code status: Full code patient will need continued inpatient hospitalization due bacteremia on IV antibiotic ? Quality Stroke Does the patient have a stroke diagnosis?: No VTE Prior VTE?: No VTE Risk Level:: Medical - moderate - high VTE Device Contraindication: Treatment Not Indicated VTE Drug Contraindication: N/A - Med Ordered
--- NOTE | 2021-11-18 14:28 | MHC.CM.PN ---
DP home with [facility] for Home infusion and nursing. Flush orders have been sent. Vanco 1000mg IV Q12H x 26 days. Plan is PICC line 11/18 pm. PICC line info needs to be sent to [facility]. 11/19 Patient will receive AM Vanco dose @ [facility]. Patient will discharge pm. [facility] will deliver supplies 11/19 pm and start services. Patient has arranged for transportation home.
[2021-11-18] MEDS: Enoxaparin Sodium 40 MG/0.4 ML SYRINGE SUBCUT (21:02)
[2021-11-18] MEDS: traZODone HCL 25 MG HALFTAB PO (21:02)
[2021-11-18] MEDS: Docusate Sodium 100 MG CAPSULE 200 MG PO (21:02)
[2021-11-19 02:45] VITALS: BP 128/69; PULSE 84; RESP 20; TEMP 36.9; O2SAT 98
[2021-11-19] MEDS: Levothyroxine Sodium 50 MCG TABLET PO (05:44)
[2021-11-19] MEDS: Omeprazole 20 MG CAPSULE.DR PO (05:45)
[2021-11-19 07:29] LABS: Creatinine Clr Calc Pharmacy 71.5; Estimated Glomerular Filt Rate > 60
[2021-11-19 07:42] VITALS: BP 129/67; PULSE 86; RESP 20; TEMP 36.8; O2SAT 99
--- NOTE | 2021-11-19 08:48 | HE.PHANOTE ---
re becky continue current dose, next trough 11/19 @1900. Evaluate then.
[2021-11-19] MEDS: 0.9 % Sodium Chloride Flush 3 ML SYRINGE IVFLUSH (09:47)
[2021-11-19] MEDS: predniSONE 20 MG TABLET PO (09:48)
[2021-11-19] MEDS: vancomycin HCL 1,000 MG in 0.9 % Sodium Chloride 250 ML 270 MG IV (09:48)
--- NOTE | 2021-11-19 10:43 | PM.DS ---
DS: Providers Provider Date of Service: 11/19/21 Date of admission: 11/14/21 02:20 Primary care physician: Pollo Vo MD Consults: 11/14/21 02:25 Consult to Infectious Diseases Routine Consulting Provider: Kathie Mccullough Reason for consultation: bacteremia DS: Diagnosis Discharge Diagnosis (1) Bacteremia: Status: Acute DS: Summary Hospital Course Hospital Course: history of presenting illness Date of Service: 11/14/21 Chief Complaint: Positive blood cultures 66-year-old female with a past medical history of GERD, hypothyroidism, chronic back pain, history of colon cancers status post chemotherapy/radiotherapy in 2011, chronic back pain status post spine surgery, recent history of COVID-19 infection in September 2021; presented to the hospital today with a chief complaint of Positive blood cultures.? Patient mentioned that she recently had left eye blurry vision-> was initially concern for temporal arteritis and was on prednisone for 2 weeks; followed by she had biopsy done at [facility] which came back negative for temporal arteritis.? And subsequently prednisone has been tapering.? Patient also reports that over the past few days she has been having bilateral lower rib pain; and came to the ER yesterday for evaluation and had CT abdomen pelvis done which showed no evidence of renal calculi, noted to have constipation.? Patient also reported and chest discomfort-presumed to be costochondritis on 11/08/2021 and subsequently discharged home. Patient mentioned that yesterday she had severe pain came back to the ER and had negative workup subsequently discharged home.? Pain improved.? Today patient was called back from the hospital because of abnormal blood culture results-consistent with 4/4 bottles growing Gram-positive cocci. Patient denies any fever chills cough or sputum production.? Denies any urinary frequency urgency or dysuria. Patient denies any chest pain or palpitations.? Denies any nausea vomiting or diarrhea Review of all other systems is negative except mentioned above ER course: Per ER team patient's vitals are stable, nonfocal examination, repeat blood cultures were sent.? Patient was given IV vancomycin.? Admitted to the hospital for further management hospital course 66-year-old female with a past medical history of GERD, hypothyroidism, chronic back pain, history of colon cancers status post chemotherapy/radiotherapy in 2011, chronic back pain status post spine surgery, recent history of COVID-19 infection in September 2021; presented to the hospital today with a chief complaint of Positive blood cultures.? Staphylococcus Bacteremia patient admitted to medical floor on IV vancomycin and Zosyn,Blood cultures?x2? from 11/13 and 11/14 positive for MRSA, blood cultures x2 from 11/16 showed no growth > 48 hours, subsequently IV Zosyn discontinued, patient remained afebrile add noted to have elevated WBC likely due to concurrent use of steroids patient underwent extensive workup,CT abdomen and pelvis showed moderate constipation without obstruction no other acute abnormality noted, UA negative, chest x-ray benign,Echocardiogram showed no vegetation, Ceretec scan? showed? no osteomyelitis,?bacteremia likely related to skin infection, had few red lesions right buttock, since patient is hemodynamically stable she is being discharged home on total 4 weeks of IV vancomycin PICC line has been placed recommend to check BMP Q weekly and recommended to avoid NSAIDs Left eye blurry vision:? Improving per patient.? Initially presumed to be temporal arteritis-biopsy negative, continue prednisone taper as per PCP.? Bilateral lower rib pain:? CT scan showed no acute findings, chest x-ray showed no acute intrathoracic disease pain resolved, was likely due to infection. Acute on Chronic low back pain with radiation to left leg likely lumbar radiculopathy: status post fusion L4 L5/L5 S1, Ceretec bone? showed no osteomyelitis spine, take muscle relaxers and Ultram as needed History of hypothyroidism: Continue levothyroxine History of GERD: continue PPI Microscopic hematuria:?Outpatient Urology follow-up Time Spent with Patient Time attestation: Total time spent providing and/or coordinating discharge services: Discharge coordination time: Greater than 30 minutes Quality: Safe Use of Opioids Does Pt have an Active Cancer Diagnosis on the Problem List?: No Quality: Stroke Does the patient have a stroke diagnosis?: No Physical Exam Vital Signs: Vital Signs: Last Vital Signs Temp 98.2 F 11/19/21 07:42 Pulse 86 11/19/21 07:42 Resp 20 11/19/21 07:42 BP 129/67 11/19/21 07:42 Pulse Ox 99 11/19/21 07:42 O2 Del Method 11/19/21 07:42 BMI result Body Mass Index 24.2 Const: Other: General? awake eduardo rt x3, in no acute distress.? Neck? supple no JVD. CVS ? regular rate rhy thm, Respiratory l ungs clear to ausc ultation, no respi ratory distress, n o wheeze, no rhonc hi. Gastrointestin al abdomen soft, n ontender, bowel so unds audible, no g uarding , no rigid ity. Extremities n o edema. Lower natanael k no tenderness ov er lumbar spine, l eft lower buttock? mild tenderness to palpation, no red ness, no swelling Neuro nonfocal,? c hronically decreas ed sensation lower extremities, unch anged Skin? right buttock medially t wo areas of dry ra sh, no drainage. DS: Data Data Completed and Pending Labs on day of discharge: Laboratory Results - last 24 hr 11/19/21 06:36 Creatinine 0.64 Estim Creat Clear Calc 71.5 Estimated GFR > 60 Preliminary micro results at discharge 11/16/21 11:59 Blood Culture - Preliminary Blood - Venous No growth after 48 hours. 11/16/21 11:59 Blood Culture - Preliminary Blood - Venous No growth after 48 hours. Discharge Plan Discharge Patient Disposition: Home Health Service Discharge Diagnosis: MRSA bacteremia acute on chronic lower back pain Referrals: Pollo Vo MD [Primary Care Provider] - 1 Week Discharge Medications: New tramadol [Ultram] 50 mg tablet 50 mg PO Q8H PRN (Reason: moderate pain (scale score 5-6)) Qty: 20 0RF Continued ondansetron 4 mg tablet,disintegrating 4 mg PO Q8H PRN (Reason: nausea and vomiting) Qty: 20 0RF omeprazole 20 mg capsule,delayed release(DR/EC) 20 mg PO DAILY Qty: 14 0RF levothyroxine 50 mcg Capsule 50 mcg PO DAILY gabapentin 600 mg Tablet 600 mg PO DAILY PRN (Reason: Pain) tizanidine 4 mg Tablet 4 mg PO DAILY PRN (Reason: MUSCLE SPASMS) prednisone 20 mg Tablet See Rx Instructions .ROUTE .COMPLEX Rx Instructions: 60 MG X 3 DAYS, 40 MG X 3 DAYS, 20 MG X 3 DAYS acetaminophen 500 mg tablet 1,000 mg PO QID PRN (Reason: pain) Qty: 30 0RF Discontinued ibuprofen 600 mg tablet 600 mg PO Q6H PRN (Reason: pain) Qty: 20 0RF Discharge Orders: Discharge Order (Routine); Ordered 11/19/21 Ordered By: Bam Emerson Diet: Advance to usual diet Activity on Discharge: As tolerated Stand Alone Forms: Patient Portal Discharge page Care Plan Goals: MRSA bacteremia take IV vancomycin 1000 mg q.12 hours follow Vanco trough with range between 15- end date December 14 follow BMP Q weekly in regard to left lumbar radiculopathy take Ultram as needed avoid NSAIDs Advil and Motrin while on vancomycin Health Concerns: continue all home medications as before Plan of Treatment: continue IV vancomycin as ordered follow-up with primary care physician in 1-2 weeks Assessment: as above
[2021-11-19 11:29] VITALS: BP 135/67; PULSE 108; RESP 20; TEMP 36.9; O2SAT 97
--- NOTE | 2021-11-19 12:02 | MHC.CM.PN ---
PT TO DC HOME TODAY WITH [facility] CM SPOKE TO FRANCIE AT [facility] WHO CONFIRMS THE PLAN TO DELIVER PTS MEDS/SUPPLIES AND PROVIDE A VIDEO TEACH THIS EVENING SHE IS AWARE THE PT DID NOT GET HER MORNING DOSE UNTIL 1130 HOURS TODAY AND WILL NEED THE TEACH LATE POSSIBLE TODAY PICC REPORT AND DC SUMMARY WERE FAXED TO FRANCIE AT [facility] @ [phone] PT WILL ARRANGE TRANSPORT
== END 2021-11-19 12:15 | disposition home health service (06) | DRG 603 ==
LOC: HO.ED 11-14 01:21 → HO.EDOVER 11-14 02:28 → HO.IMC 11-15 13:40
PROVIDERS: Student in an Organized Health Care Education/Training Program; Admitting Provider Hospitalist; Emergency Provider Emergency Medicine Emergency Medical Services; PCP Internal Medicine; Visit Provider Hospitalist
DX: L08.9 Local infection of the skin and subcutaneous tissue, unspecified (principal); R78.81 Bacteremia; M54.9 Dorsalgia, unspecified; G89.29 Other chronic pain; E03.9 Hypothyroidism, unspecified; R31.29 Other microscopic hematuria; B95.62 Methicillin resistant Staphylococcus aureus infection as the cause of diseases classified elsewhere; H53.8 Other visual disturbances; K21.9 Gastro-esophageal reflux disease without esophagitis; K59.00 Constipation, unspecified; G47.00 Insomnia, unspecified; Z20.822 Contact with and (suspected) exposure to COVID-19; Z85.038 Personal history of other malignant neoplasm of large intestine; Z92.21 Personal history of antineoplastic chemotherapy; Z92.3 Personal history of irradiation; Z88.2 Allergy status to sulfonamides; Z88.5 Allergy status to narcotic agent; Z79.890 Hormone replacement therapy; Z79.899 Other long term (current) drug therapy
CPT/HCPCS: 36415; 36573; 78306; 80048; 80053; 80202; 82565; 83605; 83690; 85025; 85027; 85652; 86140; 87040; 87077; 87205; 87635; 93005; 93306; 96361; 96374; 99285; A9521; J1642; J1650; J1885; J3370; Q0163

== ENCOUNTER 2021-11-30 09:12 | Emergency (ER) | payer OTHER, SELFPAY ==
--- NOTE | ~2021-11-30 | XR_ITS ---
EXAMINATION: XR CHEST CLINICAL INFORMATION: PICC line confirmation. COMPARISON: Chest film dated 11/08/2021 TECHNIQUE: Frontal view of the chest was obtained. FINDINGS: The tip of the PICC line overlies the superior vena cava likely in the region of the confluence of the azygos vein. There is no pneumothorax. The underlying lung aguilar are grossly clear. The cardiac silhouette is comparable. Mildly tortuous versus ectatic aorta. XR/XR chest 1V IMPRESSION: PICC line tip overlies the superior vena cava. No pneumothorax
[2021-11-30 09:31] VITALS: BP 125/75; PULSE 100; RESP 18; TEMP 36.6; O2SAT 98; BMI 24.7
--- NOTE | 2021-11-30 10:50 | ED_ITS ---
HPI - General Adult General Chief complaint: General Medical Stated complaint: picc line leaking Time Seen by Provider: 11/30/21 10:30 Source: patient Mode of arrival: ambulatory Limitations: no limitations History of Present Illness HPI narrative: Tanisha is a 66-year-old female with a past medical history of GERD, hypothyroidism, chronic back pain, history of colon cancers status post chemotherapy/radiotherapy in 2011, chronic back pain status post spine surgery, recent history of COVID-19 infection in September 2021. She was recently admitted to [facility] for MRSA bacteremia and was discharged home with a PICC line to complete a 6 week course of Vancomycin. Patient comes to the ER today with c/o left arm PICC site leaking and pruritis since placement. She reports that the dressing has been falling off daily and s he has to reinforce it. She also reports a new rash on right sided chest that is itchy. She denies pain or swelling in the left arm, SOB, or CP. Denies nausea, vomiting and abdominal pain. She reports a fever last Sunday of 101.4 and took tylenol which resolved it. Onset (ago): week(s) Related Data Home Medications Medication Instructions Recorded Confirmed levothyroxine 50 mcg capsule 50 mcg PO DAILY 11/14/21 11/14/21 gabapentin 600 mg tablet 600 mg PO DAILY PRN Pain 11/15/21 11/15/21 prednisone 20 mg tablet See Rx Instructions .Route .COMPLEX 11/15/21 11/15/21 tizanidine 4 mg tablet 4 mg PO DAILY PRN MUSCLE SPASMS 11/15/21 11/15/21 Previous Rx's Medication Instructions Recorded acetaminophen 500 mg tablet 1,000 mg PO QID PRN pain #30 tabs 11/08/21 omeprazole 20 mg capsule,delayed 20 mg PO DAILY #14 caps 11/13/21 release ondansetron 4 mg disintegrating 4 mg PO Q8H PRN nausea and 11/13/21 tablet vomiting #20 tabs tramadol 50 mg tablet (Ultram) 50 mg PO Q8H PRN moderate pain 11/19/21 (scale score 5-6) #20 tabs cetirizine 10 mg capsule (Zyrtec) 10 mg PO DAILY PRN allergy 11/30/21 symptoms #14 caps hydrocortisone 1 % topical cream 1 appl topical BID PRN allergic 11/30/21 reaction 7 days #28.35 grams Allergies Allergy/AdvReac Type Severity Reaction Status Date / Time Sulfa (Sulfonamide Allergy Unknown Verified 11/12/21 15:17 Antibiotics) morphine AdvReac Itching Verified 10/20/21 23:31 oxycodone AdvReac Vomiting Verified 11/12/21 15:17 Review of Systems Review of Systems: Constitutional: No Weight loss, No Chills, No fever ENT/Mouth: No Ear Pain, No Nasal Congestion, No Sinus Pain, No Hoarseness, No sore throat, No Rhinorrhea, No Swallowing Difficulty Cardiovascular: No Chest Pain, No SOB, No dizziness Respiratory: No Cough, No Sputum, No Wheezing Gastrointestinal: No Nausea, No Vomiting, No Diarrhea, No Constipation, No Abdominal pain Genitourinary: No Dysuria, No Urinary Frequency, No Hematuria, No Urinary Incontinence/retention, No Urgency, No Flank Pain Musculoskeletal: No joint pain, No Myalgias, No Joint Swelling, +bilateral back tenderness Skin: +left arm itching, +macular/papular rash on right chest/flank Neuro: No Weakness, No Numbness, No Paresthesias Yes all other systems are reviewed and are negative [facility] Past Medical History Attestation statement: The following information was validated with the patient. Medical History Chronic back pain Hypothyroidism Social History Social History Household Members: Other Household Members Other:: niece Housing: House Do you presently have visiting nurse or other home services: No Alcohol intake: never Patient Tobacco Use Status: Never used Tobacco e-Cigarette/Vaping Use: Never Used Second Hand Smoke Exposure: No Substance Use Type: Marijuana Advance Directives: No Advance Directives Information Provided: No service: No Physical Exam ED Vital Signs: Vital Signs - 24 hr 11/30/21 09:31 Temperature 98 F Pulse Rate 100 Respiratory Rate 18 Blood Pressure 125/75 Pulse Oximetry 98 Oxygen Delivery Method Room Air BMI result Body Mass Index 24.7 Const General: cooperative, healthy appearing and comfortable Nutritional Appearance: average body habitus Orientation/consciousness: oriented to person, oriented to place and oriented to time Limitations: no limitations HENMT Head: Yes normal to inspection Ears: hearing grossly normal bilaterally General nose exam: Normal external nose present Face and sinus: Yes normal facial exam Mouth: Normal oral and palatal mucosa present Eyes General: appearance normal, both eyes and all related structures Neck Neck: Yes normal visual inspection Chest Chest palpation & inspection: normal inspection of the chest Resp Effort & Inspection: normal respiratory effort Auscultation: clear to auscultation bilaterally Cardio Jugular venous distension: no JVD Rate: regular rate Rhythm: regular rhythm GI Inspection: Yes normal to inspection Skin Other: + macular papular rash noted to right side/breast area beneath bra lining. Rash coalescing. Blanchable. No vesicles/warmth or cellulitis + at PICC site dressing soaked, beneath StatLock small vesicles noted with mild clear drainage. No warmth/cellulitis. No streaking. Rashes: rashes noted Neuro General: oriented to person, oriented to place and oriented to time Extrem General: Yes capillary refill normal Course Course Course Narrative: Called ID MD to asked advice about rash on chest and right trunk which was concurrently with vanco administration. Dr. Mccullough did not think there was correlation between the vanco and the rash after seeing the rash. IR team called to inquire about leaking PICC. Recommended to flush line and observe for any leaking. PICC line was flushed and there was no leaking observed. IR stated that they do not have any hypoallergenic dressings and recommended to use adhesive gauze underneath the dressing. Wound clinic called and asked if there was any hypoallergenic dressings available to address PICC line. There recommendation was to put nonadhesive gauze underneath the dressing as well. Chest x-ray obtained to verify tube placement. Tip of PICC is overlying this SVC. PICC line was flushed and no leaking observed from the insertion site. Positive blood returned obtained, no difficulty flushing, no redness at the insertion site, no discharge, or swelling. Discussed with patient the importance of when to return to the ER. Also discuss ed with patient when to administer next dose of vancomycin. Discussed signs and symptoms to watch out for. Medical Decision Making [facility] Narrative Medical decision making narrative: Patient comes in with complaints of left arm PICC line leaking and itching. After assessment there is no swelling or pain surrounding the PICC line less likely to be a DVT. On further assessment there is a small rash underneath the dressing with small fluid filled vesicles, leading to the suspicion of an allergic reaction to the Tegaderm, no evidence of cellulitis. The right chest/flank region has a small rash suspicious for dermatitis. Low concern for red man syndrome/medication reaction. Topical hydrocortisone cream was applied to effected area and Claritan was administered. Left arm PICC line dressing was sterilely changed and secured with tape and non adhesive gauze was placed over the site. It was wrapped and secured with Disha wrap. Discharge Plan Discharge Clinical Impression: Skin sensitivity, Contact dermatitis Patient Disposition: Home, Self-Care Instructions: Contact Dermatitis (ED), Blister (ED) Additional Instructions: Thank you for your visit to the ER today. It appears that your itching and leaking at your PICC insertion site is caused by allergic reaction to the Tegaderm. Your chest appears to have a contact dermatitis. Zyrtec will be ordered and a topical hydrocortisone cream for the allergic reaction. If your PICC line dressing continues to leak and your itching does not decrease please return to the emergency room. Infuse your missed dose of vanco soon as you get home. Then continued your schedule as you have been prior to the visit. If symptoms persist or worsen return to the ED today. Prescriptions: New hydrocortisone 1 % cream 1 appl topical BID PRN (Reason: allergic reaction) 7 Days Qty: 28.35 0RF Zyrtec 10 mg capsule 10 mg PO DAILY PRN (Reason: allergy symptoms) Qty: 14 0RF No Action ondansetron 4 mg tablet,disintegrating 4 mg PO Q8H PRN (Reason: nausea and vomiting) Qty: 20 0RF omeprazole 20 mg capsule,delayed release(DR/EC) 20 mg PO DAILY Qty: 14 0RF levothyroxine 50 mcg Capsule 50 mcg PO DAILY gabapentin 600 mg Tablet 600 mg PO DAILY PRN (Reason: Pain) tizanidine 4 mg Tablet 4 mg PO DAILY PRN (Reason: MUSCLE SPASMS) prednisone 20 mg Tablet See Rx Instructions .ROUTE .COMPLEX Rx Instructions: 60 MG X 3 DAYS, 40 MG X 3 DAYS, 20 MG X 3 DAYS tramadol [Ultram] 50 mg tablet 50 mg PO Q8H PRN (Reason: moderate pain (scale score 5-6)) Qty: 20 0RF acetaminophen 500 mg tablet 1,000 mg PO QID PRN (Reason: pain) Qty: 30 0RF Referrals: Noemy Valdivia MD [Primary Care Provider] - Print Language: Telugu
[2021-11-30] MEDS: Loratadine 10 MG TABLET PO (12:15)
[2021-11-30] MEDS: Hydrocortisone 1 % Cream 28.35 GM TUBE 1 APPL TOPICAL (12:18)
--- NOTE | 2021-11-30 13:33 | PC.NURSE ---
PICC line flushed and new dressing place by
== END 2021-11-30 13:34 | disposition home or self-care (01) ==
PROVIDERS: Emergency Provider Emergency Medicine; PCP Internal Medicine
DX: L25.9 Unspecified contact dermatitis, unspecified cause (principal); M54.50 Low back pain, unspecified; R07.89 Other chest pain; Z79.899 Other long term (current) drug therapy
CPT/HCPCS: 71045; 99282; 99283

== ENCOUNTER 2021-12-07 15:52 | Outpatient (REF) | payer OTHER, SELFPAY | END 2021-12-07 15:53 | disposition home or self-care (01) | LOC: HO.RADIR 15:52 | PROVIDERS: Visit Provider Internal Medicine | DX: Z13.89 Encounter for screening for other disorder (principal) ==

== ENCOUNTER 2021-12-16 10:52 | Outpatient (REF) | payer OTHER, SELFPAY | END 2021-12-16 10:53 | disposition home or self-care (01) | LOC: HO.LAB 10:52 | PROVIDERS: PCP Internal Medicine; Visit Provider Internal Medicine | DX: R78.81 Bacteremia (principal); B95.62 Methicillin resistant Staphylococcus aureus infection as the cause of diseases classified elsewhere | CPT/HCPCS: 87040 ==

== ENCOUNTER 2022-01-17 12:50 | Emergency (ER) | payer OTHER, SELFPAY ==
--- NOTE | ~2022-01-17 | XR_ITS ---
EXAMINATION: XR CHEST CLINICAL INFORMATION: Fever and rib pain COMPARISON: None TECHNIQUE: 2 views of the chest were obtained. FINDINGS: The lungs are well-expanded with bandlike atelectasis left lower lobe and lingula. Rest of the liver are clear. The heart size and pulmonary vascularity is normal. No gross bony abnormality seen. XR/XR chest 2V IMPRESSION: Bandlike atelectasis left lower lobe and lingula.
--- NOTE | ~2022-01-17 | CT_ITS ---
EXAMINATION: CT ABDOMEN AND PELVIS WITH CONTRAST CLINICAL INFORMATION: Right lower quadrant/groin pain. Fever. COMPARISON: Previous CT of the abdomen and pelvis most recent October 2021 TECHNIQUE: Multidetector volumetric images were obtained from the superior aspect of the liver through the pubic symphysis following administration 85 mL of Omnipaque 350 intravenous contrast. Sagittal and coronal reformatted images were obtained on the technologist's workstation. Oral contrast: Yes This CT examination was performed using dose optimization techniques as appropriate, variously including the following: *Automated exposure control *Adjustment of mA and/or kV according to patient size (this includes techniques or standardized protocols for targeted exams where dose is matched to indication/reason for exam; i.e. extremities or head) *Use of iterative reconstruction technique DLP: 519 mGy-cm FINDINGS: LUNG BASES: There is increased soft tissue adjacent to the lower thoracic spine. There is a central low-attenuation area in the abnormal soft tissue measuring approximately 1 cm questionable for abscess. There is increasing destruction of the inferior endplate of the T8-T9 vertebral body and T9-T10 disc space. Findings are concerning for discitis and osteomyelitis. There is a tiny left pleural effusion. There is increasing left lower lobe atelectasis. LIVER, GALLBLADDER, AND BILIARY TREE: The liver is normal in size, shape, and attenuation. No focal hepatic lesion or biliary ductal dilatation is present. The gallbladder is unremarkable with no evidence of radiopaque gallstones, gallbladder wall thickening, or obvious pericholecystic inflammatory changes. PANCREAS: Unremarkable. SPLEEN: Unremarkable. ADRENAL GLANDS: Unremarkable. KIDNEYS AND URETERS: Small bilateral renal cysts. No imaging follow-up. These are otherwise unremarkable. BLADDER: Unremarkable. GASTROINTESTINAL TRACT: The small and large bowel are unremarkable. The appendix is is not seen. The stomach is unremarkable. ABDOMINAL WALL: No significant hernia is appreciated. There is a new heterogeneous of fluid collection seen in the right psoas muscle. This measures 4.4 x 3.2 x 6.3 cm in transverse AP and longitudinal dimension. This has a dependent high attenuation questionable for hemorrhage. LYMPH NODES: Small retroperitoneal lymph nodes. No enlarged lymph nodes. VASCULAR: Atherosclerotic disease. No aneurysm. PELVIC VISCERA: There is low-attenuation seen centrally in the uterus questionable for endometrial fluid or thickening. This measures 1.4 cm which is abnormally thickened for a postmenopausal patient. Small uterine calcifications probably representing fibroids. Prominent pelvic vessels, left greater than right questionable for pelvic congestion. Otherwise unremarkable adnexa. OSSEOUS STRUCTURES: Postsurgical changes following anterior fusion hardware at L5-S1 and posterior fusion hardware from L4 to S1 and disc interspacers at L4-L5 and L5-S1. There is increasing bone loss of the inferior endplate of the T9 vertebral body at the T10 disc space questionable for discitis and osteomyelitis. CT/CT abdomen pelvis w IV con IMPRESSION: Increasing paraspinal soft tissue and question small right paraspinal abscess adjacent to the lower thoracic spine. Increasing bone loss of the inferior endplate of the T9 vertebral body and T9-T10 disc space suggestive of discitis and osteomyelitis. New fluid collection in the right psoas muscle. This has dependent high attenuation and appearance is questionable for a liquefying hematoma or abscess. Abnormally appearance of the endometrium. Follow-up pelvic ultrasound recommended. Fleischner guidelines were followed.
[2022-01-17 13:07] VITALS: BP 131/68; PULSE 118; RESP 20; TEMP 37.8; O2SAT 98; BMI 23.3
--- NOTE | 2022-01-17 13:17 | ED_ITS ---
HPI - General Adult General Chief complaint: Back Pain/Injury <Dale Brady MD - Last Filed: 01/17/22 13:19> Stated complaint: Pain in side/sent in for scans <Dale Brady MD - Last Filed: 01/17/22 13:19> Time Seen by Provider: 01/17/22 13:27 <Dale Brady MD - Last Filed: 01/17/22 13:19> Source: patient <Jasmyne Levy NP - Last Filed: 01/17/22 18:22> Mode of arrival: ambulatory <Jasmyne Levy NP - Last Filed: 01/17/22 18:22> Limitations: no limitations <Jasmyen Levy NP - Last Filed: 01/17/22 18:22> History of Present Illness HPI narrative: This is a 66-year-old female with history of multiple back surgeries who was admitted for MRSA bacteremia in October from an unknown source and discharged with 3 weeks of IV vancomycin who returns with fever. Patient tells me for the last 3 weeks she has had right pelvic pain which radiates into the groin and down the right leg with weakness and pins/needles sensation in the leg. There is no associated numbness in the groin. No associated bowel or bladder incontinence. Patient denies any vomiting, diarrhea, constipation, urinary symptoms. Patient reports intermittent low-grade fevers over the last few weeks. Patient did have 1 day of high fever last Sunday. She tells me this was tactile she did not have a thermometer. Patient reports in the end of November when the pain 1st started she was seen at an emergency room in [place]. She was discharged with an anti-inflammatory. Patient denies any injury or trauma. She also reports right upper/mid back pain which has been ongoing for several months. This is not associated with cough for fever or chest pain or difficulty breathing. Of note patient went in to her primary care today and was referred into the emergency room for further evaluation <Jasmyne Levy NP - Last Filed: 01/17/22 18:22> Related Data Home medications: Home Medications Medication Instructions Recorded Confirmed levothyroxine 50 mcg capsule 50 mcg PO DAILY@0630 11/14/21 01/17/22 gabapentin 600 mg tablet 600 mg PO DAILY@1700 11/15/21 01/17/22 cyclobenzaprine 5 mg tablet 5 mg PO TID PRN Pain 01/17/22 01/17/22 ibuprofen 200 mg tablet 400 mg PO Q6H PRN Pain 01/17/22 01/17/22 omeprazole 40 mg capsule,delayed 40 mg PO DAILY@0630 PRN Heartburn 01/17/22 01/17/22 release <Dale Brady MD - Last Filed: 01/17/22 13:19> Allergies/adverse reactions: Allergies Allergy/AdvReac Type Severity Reaction Status Date / Time Sulfa (Sulfonamide Allergy Unknown Verified 12/07/21 15:15 Antibiotics) morphine AdvReac Itching Verified 12/07/21 15:15 oxycodone AdvReac Vomiting Verified 12/07/21 15:15 <Dale Brady MD - Last Filed: 01/17/22 13:19> Review of Systems Review of Systems: Yes all other systems are reviewed and are negative <Jasmyne Levy NP - Last Filed: 01/17/22 18:22> Constitutional: Constitutional: Reports no additional constitutional complaints, Denies body ache(s), Denies chills, Reports fever(s), Denies headache(s) and Denies weakness <Jasmyne Levy NP - Last Filed: 01/17/22 18:22> Eyes: Eyes: Reports no additional eye complaints and Denies change in vision <Jasmyne Levy NP - Last Filed: 01/17/22 18:22> ENT: Reports system reviewed and no additional complaints, except as documented, Denies dizziness, Denies headache(s), Denies nasal congestion, Denies nasal discharge and Denies neck pain <Jasmyne Levy NP - Last Filed: 01/17/22 18:22> Cardiovascular: Cardiovascular: Reports no additional cardiovascular complaints, Denies chest pain, Denies leg edema and Denies dyspnea <Jasmyne Levy NP - Last Filed: 01/17/22 18:22> Respiratory: Respiratory: Reports no additional respiratory complaints, Denies cough and Denies dyspnea <Jasmyne Levy NP - Last Filed: 01/17/22 18:22> Gastrointestinal: Gastrointestinal: Reports no additional gastrointestinal complaints, Denies abdominal pain, Denies diarrhea, Denies nausea and Denies vomiting <Jasmyne Levy NP - Last Filed: 01/17/22 18:22> Genitourinary: Genitourinary: Reports no additional female genitourinary complaints and Denies urinary incontinence <Jasmyne Levy NP - Last Filed: 01/17/22 18:22> Musculoskeletal: Musculoskeletal: Reports no additional musculoskeletal complaints, Reports back pain, Denies arthralgias, Denies joint swelling, Denies neck pain, Reports numbness, Reports radiating pain into limb and Reports tingling <Jasmyne Levy NP - Last Filed: 01/17/22 18:22> Integumentary/Breasts: Skin/Breast: Reports system reviewed and no additional complaints, except as docu and Denies rash <Jasmyne Levy NP - Last Filed: 01/17/22 18:22> Neurologic: Reports system reviewed and no additional complaints, except as documented, Denies dizziness, Denies headache(s), Reports numbness, Reports tingling and Denies weakness <Jasmyne Levy NP - Last Filed: 01/17/22 18:22> [facility] Past Medical History Attestation statement: The following information was validated with the patient. <Jasmyne Levy NP - Last Filed: 01/17/22 18:22> Source: old records reviewed and nursing notes reviewed <Jasmyne Levy NP - Last Filed: 01/17/22 18:22> Medical History: Medical History Chronic back pain Hypothyroidism MRSA bacteremia <Dale Brady MD - Last Filed: 01/17/22 13:19> Social History Social History: Social History Household Members: Other Household Members Other:: niece Housing: House Do you presently have visiting nurse or other home services: No Alcohol intake: never Patient Tobacco Use Status: Never used Tobacco e-Cigarette/Vaping Use: Never Used Second Hand Smoke Exposure: No Substance Use Type: Marijuana Advance Directives: Yes Advance Directives on File: Yes Advance Directives Date on File: 11/21/21 service: No <Dale Brady MD - Last Filed: 01/17/22 13:19> Physical Exam ED Vital Signs: Vital Signs - 24 hr 01/17/22 13:07 01/17/22 15:17 01/17/22 19:15 Temperature 100.0 F 99.0 F 99.1 F Pulse Rate 118 H 112 H 115 H Respiratory Rate 20 18 18 Blood Pressure 131/68 152/72 H 168/77 H Pulse Oximetry 98 96 96 Oxygen Delivery Method Room Air Room Air Room Air BMI result Body Mass Index 23.3 <Dale Brady MD - Last Filed: 01/17/22 13:19> Vital Signs - 24 hr 01/17/22 13:07 01/17/22 15:17 01/17/22 19:15 Temperature 100.0 F 99.0 F 99.1 F Pulse Rate 118 H 112 H 115 H Respiratory Rate 20 18 18 Blood Pressure 131/68 152/72 H 168/77 H Pulse Oximetry 98 96 96 Oxygen Delivery Method Room Air Room Air Room Air BMI result Body Mass Index 23.3 <Jasmyne Levy NP - Last Filed: 01/17/22 18:22> Vital Signs - 24 hr 01/17/22 13:07 01/17/22 15:17 01/17/22 19:15 Temperature 100.0 F 99.0 F 99.1 F Pulse Rate 118 H 112 H 115 H Respiratory Rate 20 18 18 Blood Pressure 131/68 152/72 H 168/77 H Pulse Oximetry 98 96 96 Oxygen Delivery Method Room Air Room Air Room Air BMI result Body Mass Index 23.3 <JANY Amador - Last Filed: 01/18/22 08:54> Const General: cooperative, healthy appearing, comfortable and no acute distress <Jasmyne Levy NP - Last Filed: 01/17/22 18:22> Orientation/consciousness: patient oriented x3 <Jasmyne Levy NP - Last Filed: 01/17/22 18:22> Limitations: no limitations <Jasmyne Levy NP - Last Filed: 01/17/22 18:22> HENMT Head: Yes normal to inspection <Jasmyne Levy NP - Last Filed: 01/17/22 18:22> Ears: hearing grossly normal bilaterally and TM's normal bilaterally <Jasmyne Levy NP - Last Filed: 01/17/22 18:22> General nose exam: Normal external nose present <Jasmyne Levy NP - Last Filed: 01/17/22 18:22> Face and sinus: Yes normal facial exam <Jasmyne Levy NP - Last Filed: 01/17/22 18:22> Throat: Yes posterior oropharynx normal, Yes tonsils normal and Yes uvula midline <Jasmyne Levy NP - Last Filed: 01/17/22 18:22> Eyes General: appearance normal, both eyes and all related structures <Jasmyne Levy NP - Last Filed: 01/17/22 18:22> Pupils: Equal, round and reactive pupils present <Jasmyne Levy NP - Last Filed: 01/17/22 18:22> Neck Neck: Yes normal visual inspection, Yes full ROM, Yes no lymphadenopathy and Yes no meningeal signs <Jasmyne Levy NP - Last Filed: 01/17/22 18:22> Chest Chest palpation & inspection: normal inspection of the chest <Jasmyne Levy NP - Last Filed: 01/17/22 18:22> Resp Effort & Inspection: normal respiratory effort <Jasmyne Levy NP - Last Filed: 01/17/22 18:22> Auscultation: clear to auscultation bilaterally <Jasmyne Levy NP - Last Filed: 01/17/22 18:22> Cardio Rate: regular rate <Jasmyne Levy NP - Last Filed: 01/17/22 18:22> Rhythm: regular rhythm <Jasmyne Levy NP - Last Filed: 01/17/22 18:22> Peripheral pulses: Peripheral pulses 2+ throughout <Jasmyne Levy NP - Last Filed: 01/17/22 18:22> GI Inspection: Yes normal to inspection <Jasmyne Levy NP - Last Filed: 01/17/22 18:22> Palpation (GI): Soft to palpation and Tenderness to palpation present (GI) (right groin-no rebound or guarding ) <Jasmyne Levy NP - Last Filed: 01/17/22 18:22> Auscultation: normal bowel sounds <Jasmyne Levy NP - Last Filed: 01/17/22 18:22> General: Yes no CVA tenderness <Jasmyne Levy NP - Last Filed: 01/17/22 18:22> Back/Spine/Pelvis Other: At the mid spine at the right paraspinal area there is tenderness Pain is worsened with right straight leg raise <Jasmyne Levy NP - Last Filed: 01/17/22 18:22> Back: no CVA tenderness <Jasmyne Levy NP - Last Filed: 01/17/22 18:22> Thoracic/Lumbar Spine: thoracic and lumbar spine normal to inspection <Jasmyne Levy NP - Last Filed: 01/17/22 18:22> Skin General skin exam: no rashes or lesions noted <Jasmyne Levy NP - Last Filed: 01/17/22 18:22> Neuro General: patient oriented x3, moves all extremities and no meningeal signs <Jasmyne Levy NP - Last Filed: 01/17/22 18:22> Cranial nerves: Yes CN's II-XII intact bilaterally, Yes Equal, round and reactive pupils present, Yes Bilaterally intact EOM present, Yes Nystagmus not present, Yes Normal facial strength present and Yes Midline tongue present <Jasmyne Levy NP - Last Filed: 01/17/22 18:22> Cognition (Neuro): normal cognition <Jasmyne Levy NP - Last Filed: 01/17/22 18:22> Gait exam (Neuro): Normal gait present <Jasmyne eLvy NP - Last Filed: 01/17/22 18:22> Motor exam (neuro): 5/5 motor strength present throughout <Jasmyne Levy NP - Last Filed: 01/17/22 18:22> Sensory Exam: Normal double simultaneous stimulation for sensation <Jasmyne Levy NP - Last Filed: 01/17/22 18:22> Deep tendon reflexes (DTR's): Right patellar reflex intensity grade: 2+ and Left patellar reflex intensity grade: 2+ <Jasmyne Leyv NP - Last Filed: 01/17/22 18:22> Extrem General: Yes normal to inspection, Yes no pedal edema and Yes no calf tenderness <Jasmyne Levy NP - Last Filed: 01/17/22 18:22> Course Course Course Narrative: 1600-reviewed labs which show leukocytosis with shift, acute on chronic anemia (no active bleeding), signnificant thrombocytosis, mildly elevated AST and ALT, elevated INR and PT. UA is pending. Chest x-ray shows no acute f inding. COVID screen pending. Ct abdomen/pelvis shows IMPRESSION: Increasing paraspinal soft tissue and question small right paraspinal abscess adjacent to the lower thoracic spine. Increasing bone loss of the inferior endplate of the T9 vertebral body and T9-T10 disc space suggestive of discitis and osteomyelitis. New fluid collection in the right psoas muscle. This has dependent high attenuation and appearance is questionable for a liquefying hematoma or abscess. ?Abnormally appearance of the endometrium. Follow-up pelvic ultrasound recommended. Fleischner guidelines were followed. -I discussed the patient with Dr. Sierra. Patient cannot have an MRI due to previous lumbar fusion with hardware in place. He is concerned patient may need IR intervention and is unsure if we have IR available in the next few days. He is requesting transfer of patient for IR. I have conferred with the wide area network systems administrator on-call the IR is available tomorrow. Therefore I spoke again to Dr Sierra. There is concern that the patient may have a paraspinal abscess up to 1 cm that may need drainage and if patient develops neurological deficits or symptoms may require neurosurgery consultation. Therefore we tried calling [facility] and [facility] but they are at capacity.. I spoke to [place] transfer line and they accepted transfer to the ER under Dr Canchola. <Jasmyne Levy NP - Last Filed: 01/17/22 18:22> Reevaluation(s) Reevaluation #1: 66 yo female with PMH MRSA infection c/o back pain for several weeks. The patient saw her PCP today and was told to come to the ER for more tests . She was in hospital in October for similar without confirmed diagnosis. Has also been seen in [place] for same, without any firm diagnosis. <Dale Brady MD - Last Filed: 01/17/22 13:19> Time: 13:18 <Dale Brady MD - Last Filed: 01/17/22 13:19> Reevaluation #2: 01/18/2022 0854: Patient's blood cultures came back positive for gram positive cocci. Called and spoke with nursing staff at [facility] and reported results. <JANY Amador - Last Filed: 01/18/22 08:54> Medications Administered Discontinued Medications Generic Name Dose Route Start Last Admin Trade Name Freq PRN Reason Stop Dose Admin Sodium Chloride 1,000 mls @ 999 mls/hr 01/17/22 14:07 01/17/22 19:34 Ns IV 01/17/22 15:07 Infused .Q1H1M STA Infusion Ceftriaxone Sodium 1 gm/ 50 mls @ 100 mls/hr 01/17/22 14:08 01/17/22 19:35 Sodium Chloride IV 01/17/22 14:37 Infused ONCE ONE Infusion Vancomycin HCl 1,500 mg/ 500 mls @ 333.333 mls/hr 01/17/22 14:08 01/17/22 19:35 Sodium Chloride IV 01/17/22 15:37 Infused ONCE ONE Infusion Iohexol 100 ml 01/17/22 14:45 01/17/22 14:45 Iohexol 350 Mg/Ml 100 Ml Infus..Btl IV 01/17/22 14:46 85 ml ONCE ONE Administration Ketorolac Tromethamine 30 mg 01/17/22 14:07 01/17/22 14:50 Ketorolac Tromethamine 30 Mg/Ml Vial IVPUSH 01/17/22 14:08 30 mg ONCE ONE Administration <Dale Brady MD - Last Filed: 01/17/22 13:19> Medications Administered Discontinued Medications Generic Name Dose Route Start Last Admin Trade Name Freq PRN Reason Stop Dose Admin Sodium Chloride 1,000 mls @ 999 mls/hr 01/17/22 14:07 01/17/22 19:34 Ns IV 01/17/22 15:07 Infused .Q1H1M STA Infusion Ceftriaxone Sodium 1 gm/ 50 mls @ 100 mls/hr 01/17/22 14:08 01/17/22 19:35 Sodium Chloride IV 01/17/22 14:37 Infused ONCE ONE Infusion Vancomycin HCl 1,500 mg/ 500 mls @ 333.333 mls/hr 01/17/22 14:08 01/17/22 19:35 Sodium Chloride IV 01/17/22 15:37 Infused ONCE ONE Infusion Iohexol 100 ml 01/17/22 14:45 01/17/22 14:45 Iohexol 350 Mg/Ml 100 Ml Infus..Btl IV 01/17/22 14:46 85 ml ONCE ONE Administration Ketorolac Tromethamine 30 mg 01/17/22 14:07 01/17/22 14:50 Ketorolac Tromethamine 30 Mg/Ml Vial IVPUSH 01/17/22 14:08 30 mg ONCE ONE Administration <Jasmyne Levy NP - Last Filed: 01/17/22 18:22> Medications Administered Discontinued Medications Generic Name Dose Route Start Last Admin Trade Name Freq PRN Reason Stop Dose Admin Sodium Chloride 1,000 mls @ 999 mls/hr 01/17/22 14:07 01/17/22 19:34 Ns IV 01/17/22 15:07 Infused .Q1H1M STA Infusion Ceftriaxone Sodium 1 gm/ 50 mls @ 100 mls/hr 01/17/22 14:08 01/17/22 19:35 Sodium Chloride IV 01/17/22 14:37 Infused ONCE ONE Infusion Vancomycin HCl 1,500 mg/ 500 mls @ 333.333 mls/hr 01/17/22 14:08 01/17/22 19:35 Sodium Chloride IV 01/17/22 15:37 Infused ONCE ONE Infusion Iohexol 100 ml 01/17/22 14:45 01/17/22 14:45 Iohexol 350 Mg/Ml 100 Ml Infus..Btl IV 01/17/22 14:46 85 ml ONCE ONE Administration Ketorolac Tromethamine 30 mg 01/17/22 14:07 01/17/22 14:50 Ketorolac Tromethamine 30 Mg/Ml Vial IVPUSH 01/17/22 14:08 30 mg ONCE ONE Administration <JANY Amador - Last Filed: 01/18/22 08:54> Medical Decision Making MDM Narrative Medical decision making narrative: This is a 66-year-old female with a history lumbar fusion and hardware in her lumbar spine, MRSA bacteremia with admission to [facility] from November 14 until November 19 from an unknown source that was treated with 3 weeks of IV vancomycin who presents with 3 weeks of right groin pain with radiation down the right leg with some intermittent numbness and tingling as well as right mid back pain which has been going on for several months with intermittent low-grade fevers. Patient seen at primary and referred in for further evaluation. On arrival patient with low-grade temp 100 degrees F, with tachycardia 112. On exam patient has tenderness over the right thoracic paraspinal area with no step-offs deformities. Patient also with tenderness of the right groin with pain that radiates down the right leg with some intermittent numbness and tingling which is worsened with right straight leg raise. Patient is ambulatory with a steady gait. She has no focal neurological deficit. Patient will need labs including blood cultures and lactic acid, UA, COVID screen, chest x-ray, CT abdomen pelvis with contrast. At this time infection is suspected. Patient received fluids, antibiotics Consider osteomyelitis, UTI, intra-abdominal pathology, pneumonia, bacteremia -no neck pain/stiffness, meningeal signs to suggest meningitis <Jasmyne Levy NP - Last Filed: 01/17/22 18:22> Medical Records Medical records reviewed: Yes I reviewed the patient's medical records. <Jasmyne Levy NP - Last Filed: 01/17/22 18:22> Lab Data Lab results reviewed: Yes I reviewed the patient's lab results. <Jasmyne Levy NP - Last Filed: 01/17/22 18:22> Result diagrams: : 01/17/22 13:25 01/17/22 13:25 <Dale Brady MD - Last Filed: 01/17/22 13:19> Labs: Lab Results 01/17/22 01/17/22 01/17/22 Range/Units 13:25 13:25 13:25 WBC 24.0 H (4.8-10.8) X10*3/uL RBC 3.16 L (4.20-5.50) X10*6/uL Hgb 8.1 L D (12.0-16.0) g/dl Hct 26.4 L D (37.0-47.0) % MCV 83.5 (80.0-98.0) fL MCH 25.6 L (27.0-33.0) pg MCHC 30.7 L (31.0-35.0) g/dl RDW 16.6 H (11.0-16.0) % Plt Count 845 H D (160-400) X10*3/uL MPV 7.4 L (9.4-12.3) fL Immature Gran % (Auto) 3.5 H (0.0-0.4) % Neut % (Auto) 83.9 H (45-73) % Lymph % (Auto) 6.6 L (20-40) % Pope % (Auto) 5.5 (2-11) % Eos % (Auto) 0.2 (0-4) % Baso % (Auto) 0.3 (0-2) % Lymph # (Auto) 1.6 (1.2-4.9) X10*3/uL Pope # (Auto) 1.3 H (0.1-1.2) X10*3/uL Eos # (Auto) 0.1 (0.0-0.4) X10*3/uL Baso # (Auto) 0.1 (0.0-0.2) X10*3/uL Abs Immat Gran (auto) 0.84 H (0.00-0.03) X10*3/uL Absolute Neuts (auto) 20.2 H (2.0-8.3) x10*3/uL Absolute Nucleated RBC 0.000 (0.0-0.012) X10*3/uL Nucleated RBC % (auto) 0.0 (0.0-0.2) /100WBC Smear Tech's Comments VERIFIED ESR 119 H (0-20) MM/HR PT (10.0-13.1) SEC INR (0.9-1.1) Sodium 135 (135-145) mmol/L Potassium 3.5 (3.3-5.1) mmol/L Chloride 93 L (96-108) mmol/L Carbon Dioxide 29 (22-29) mmol/L Anion Gap 17 (12-20) BUN 12 (9-16) mg/dL Creatinine 0.68 (0.5-1.4) mg/dL Estim Creat Clear Calc 67.2 Estimated GFR > 60 Random Glucose 103 (60-115) mg/dL Lactic Acid (0.5-2.0) mmol/L Calcium 8.9 (8.4-10.2) mg/dL Magnesium (1.6-2.6) mg/dL Total Bilirubin (0.0-1.0) mg/dL Direct Bilirubin (0.0-0.5) mg/dL AST (5-31) U/L ALT (0-31) U/L Alkaline Phosphatase (39-117) U/L Troponin I High Sens (<3.5-17.0) ng/L C-Reactive Protein 29.35 H (< or = 0.50) mg/dL Total Protein (6.5-8.0) g/dL Albumin (3.5-5.0) g/dL COVID-19 (ROSA) (Negative) COVID-19 Clin Com 01/17/22 01/17/22 01/17/22 Range/Units 14:31 14:31 14:31 WBC (4.8-10.8) X10*3/uL RBC (4.20-5.50) X10*6/uL Hgb (12.0-16.0) g/dl Hct (37.0-47.0) % MCV (80.0-98.0) fL MCH (27.0-33.0) pg MCHC (31.0-35.0) g/dl RDW (11.0-16.0) % Plt Count (160-400) X10*3/uL MPV (9.4-12.3) fL Immature Gran % (Auto) (0.0-0.4) % Neut % (Auto) (45-73) % Lymph % (Auto) (20-40) % Pope % (Auto) (2-11) % Eos % (Auto) (0-4) % Baso % (Auto) (0-2) % Lymph # (Auto) (1.2-4.9) X10*3/uL Pope # (Auto) (0.1-1.2) X10*3/uL Eos # (Auto) (0.0-0.4) X10*3/uL Baso # (Auto) (0.0-0.2) X10*3/uL Abs Immat Gran (auto) (0.00-0.03) X10*3/uL Absolute Neuts (auto) (2.0-8.3) x10*3/uL Absolute Nucleated RBC (0.0-0.012) X10*3/uL Nucleated RBC % (auto) (0.0-0.2) /100WBC Smear Tech's Comments ESR (0-20) MM/HR PT 14.3 H (10.0-13.1) SEC INR 1.2 H (0.9-1.1) Sodium (135-145) mmol/L Potassium (3.3-5.1) mmol/L Chloride (96-108) mmol/L Carbon Dioxide (22-29) mmol/L Anion Gap (12-20) BUN (9-16) mg/dL Creatinine (0.5-1.4) mg/dL Estim Creat Clear Calc Estimated GFR Random Glucose (60-115) mg/dL Lactic Acid (0.5-2.0) mmol/L Calcium (8.4-10.2) mg/dL Magnesium 2.1 (1.6-2.6) mg/dL Total Bilirubin 0.6 (0.0-1.0) mg/dL Direct Bilirubin 0.4 (0.0-0.5) mg/dL AST 36 H D (5-31) U/L ALT 53 H (0-31) U/L Alkaline Phosphatase 237 H D (39-117) U/L Troponin I High Sens 10.0 (<3.5-17.0) ng/L C-Reactive Protein (< or = 0.50) mg/dL Total Protein 7.9 (6.5-8.0) g/dL Albumin 3.4 L (3.5-5.0) g/dL COVID-19 (ROSA) (Negative) COVID-19 Clin Com 01/17/22 01/17/22 Range/Units 14:31 17:03 WBC (4.8-10.8) X10*3/uL RBC (4.20-5.50) X10*6/uL Hgb (12.0-16.0) g/dl Hct (37.0-47.0) % MCV (80.0-98.0) fL MCH (27.0-33.0) pg MCHC (31.0-35.0) g/dl RDW (11.0-16.0) % Plt Count (160-400) X10*3/uL MPV (9.4-12.3) fL Immature Gran % (Auto) (0.0-0.4) % Neut % (Auto) (45-73) % Lymph % (Auto) (20-40) % Pope % (Auto) (2-11) % Eos % (Auto) (0-4) % Baso % (Auto) (0-2) % Lymph # (Auto) (1.2-4.9) X10*3/uL Pope # (Auto) (0.1-1.2) X10*3/uL Eos # (Auto) (0.0-0.4) X10*3/uL Baso # (Auto) (0.0-0.2) X10*3/uL Abs Immat Gran (auto) (0.00-0.03) X10*3/uL Absolute Neuts (auto) (2.0-8.3) x10*3/uL Absolute Nucleated RBC (0.0-0.012) X10*3/uL Nucleated RBC % (auto) (0.0-0.2) /100WBC Smear Tech's Comments ESR (0-20) MM/HR PT (10.0-13.1) SEC INR (0.9-1.1) Sodium (135-145) mmol/L Potassium (3.3-5.1) mmol/L Chloride (96-108) mmol/L Carbon Dioxide (22-29) mmol/L Anion Gap (12-20) BUN (9-16) mg/dL Creatinine (0.5-1.4) mg/dL Estim Creat Clear Calc Estimated GFR Random Glucose (60-115) mg/dL Lactic Acid 1.0 (0.5-2.0) mmol/L Calcium (8.4-10.2) mg/dL Magnesium (1.6-2.6) mg/dL Total Bilirubin (0.0-1.0) mg/dL Direct Bilirubin (0.0-0.5) mg/dL AST (5-31) U/L ALT (0-31) U/L Alkaline Phosphatase (39-117) U/L Troponin I High Sens (<3.5-17.0) ng/L C-Reactive Protein (< or = 0.50) mg/dL Total Protein (6.5-8.0) g/dL Albumin (3.5-5.0) g/dL COVID-19 (ROSA) Negative (Negative) COVID-19 Clin Com See Note <Dale Brady MD - Last Filed: 01/17/22 13:19> Lab Results 01/17/22 01/17/22 01/17/22 Range/Units 13:25 13:25 13:25 WBC 24.0 H (4.8-10.8) X10*3/uL RBC 3.16 L (4.20-5.50) X10*6/uL Hgb 8.1 L D (12.0-16.0) g/dl Hct 26.4 L D (37.0-47.0) % MCV 83.5 (80.0-98.0) fL MCH 25.6 L (27.0-33.0) pg MCHC 30.7 L (31.0-35.0) g/dl RDW 16.6 H (11.0-16.0) % Plt Count 845 H D (160-400) X10*3/uL MPV 7.4 L (9.4-12.3) fL Immature Gran % (Auto) 3.5 H (0.0-0.4) % Neut % (Auto) 83.9 H (45-73) % Lymph % (Auto) 6.6 L (20-40) % Pope % (Auto) 5.5 (2-11) % Eos % (Auto) 0.2 (0-4) % Baso % (Auto) 0.3 (0-2) % Lymph # (Auto) 1.6 (1.2-4.9) X10*3/uL Pope # (Auto) 1.3 H (0.1-1.2) X10*3/uL Eos # (Auto) 0.1 (0.0-0.4) X10*3/uL Baso # (Auto) 0.1 (0.0-0.2) X10*3/uL Abs Immat Gran (auto) 0.84 H (0.00-0.03) X10*3/uL Absolute Neuts (auto) 20.2 H (2.0-8.3) x10*3/uL Absolute Nucleated RBC 0.000 (0.0-0.012) X10*3/uL Nucleated RBC % (auto) 0.0 (0.0-0.2) /100WBC Smear Tech's Comments VERIFIED ESR 119 H (0-20) MM/HR PT (10.0-13.1) SEC INR (0.9-1.1) Sodium 135 (135-145) mmol/L Potassium 3.5 (3.3-5.1) mmol/L Chloride 93 L (96-108) mmol/L Carbon Dioxide 29 (22-29) mmol/L Anion Gap 17 (12-20) BUN 12 (9-16) mg/dL Creatinine 0.68 (0.5-1.4) mg/dL Estim Creat Clear Calc 67.2 Estimated GFR > 60 Random Glucose 103 (60-115) mg/dL Lactic Acid (0.5-2.0) mmol/L Calcium 8.9 (8.4-10.2) mg/dL Magnesium (1.6-2.6) mg/dL Total Bilirubin (0.0-1.0) mg/dL Direct Bilirubin (0.0-0.5) mg/dL AST (5-31) U/L ALT (0-31) U/L Alkaline Phosphatase (39-117) U/L Troponin I High Sens (<3.5-17.0) ng/L C-Reactive Protein 29.35 H (< or = 0.50) mg/dL Total Protein (6.5-8.0) g/dL Albumin (3.5-5.0) g/dL COVID-19 (ROSA) (Negative) COVID-19 Clin Com 01/17/22 01/17/22 01/17/22 Range/Units 14:31 14:31 14:31 WBC (4.8-10.8) X10*3/uL RBC (4.20-5.50) X10*6/uL Hgb (12.0-16.0) g/dl Hct (37.0-47.0) % MCV (80.0-98.0) fL MCH (27.0-33.0) pg MCHC (31.0-35.0) g/dl RDW (11.0-16.0) % Plt Count (160-400) X10*3/uL MPV (9.4-12.3) fL Immature Gran % (Auto) (0.0-0.4) % Neut % (Auto) (45-73) % Lymph % (Auto) (20-40) % Pope % (Auto) (2-11) % Eos % (Auto) (0-4) % Baso % (Auto) (0-2) % Lymph # (Auto) (1.2-4.9) X10*3/uL Pope # (Auto) (0.1-1.2) X10*3/uL Eos # (Auto) (0.0-0.4) X10*3/uL Baso # (Auto) (0.0-0.2) X10*3/uL Abs Immat Gran (auto) (0.00-0.03) X10*3/uL Absolute Neuts (auto) (2.0-8.3) x10*3/uL Absolute Nucleated RBC (0.0-0.012) X10*3/uL Nucleated RBC % (auto) (0.0-0.2) /100WBC Smear Tech's Comments ESR (0-20) MM/HR PT 14.3 H (10.0-13.1) SEC INR 1.2 H (0.9-1.1) Sodium (135-145) mmol/L Potassium (3.3-5.1) mmol/L Chloride (96-108) mmol/L Carbon Dioxide (22-29) mmol/L Anion Gap (12-20) BUN (9-16) mg/dL Creatinine (0.5-1.4) mg/dL Estim Creat Clear Calc Estimated GFR Random Glucose (60-115) mg/dL Lactic Acid (0.5-2.0) mmol/L Calcium (8.4-10.2) mg/dL Magnesium 2.1 (1.6-2.6) mg/dL Total Bilirubin 0.6 (0.0-1.0) mg/dL Direct Bilirubin 0.4 (0.0-0.5) mg/dL AST 36 H D (5-31) U/L ALT 53 H (0-31) U/L Alkaline Phosphatase 237 H D (39-117) U/L Troponin I High Sens 10.0 (<3.5-17.0) ng/L C-Reactive Protein (< or = 0.50) mg/dL Total Protein 7.9 (6.5-8.0) g/dL Albumin 3.4 L (3.5-5.0) g/dL COVID-19 (ROSA) (Negative) COVID-19 Clin Com 01/17/22 01/17/22 Range/Units 14:31 17:03 WBC (4.8-10.8) X10*3/uL RBC (4.20-5.50) X10*6/uL Hgb (12.0-16.0) g/dl Hct (37.0-47.0) % MCV (80.0-98.0) fL MCH (27.0-33.0) pg MCHC (31.0-35.0) g/dl RDW (11.0-16.0) % Plt Count (160-400) X10*3/uL MPV (9.4-12.3) fL Immature Gran % (Auto) (0.0-0.4) % Neut % (Auto) (45-73) % Lymph % (Auto) (20-40) % Pope % (Auto) (2-11) % Eos % (Auto) (0-4) % Baso % (Auto) (0-2) % Lymph # (Auto) (1.2-4.9) X10*3/uL Pope # (Auto) (0.1-1.2) X10*3/uL Eos # (Auto) (0.0-0.4) X10*3/uL Baso # (Auto) (0.0-0.2) X10*3/uL Abs Immat Gran (auto) (0.00-0.03) X10*3/uL Absolute Neuts (auto) (2.0-8.3) x10*3/uL Absolute Nucleated RBC (0.0-0.012) X10*3/uL Nucleated RBC % (auto) (0.0-0.2) /100WBC Smear Tech's Comments ESR (0-20) MM/HR PT (10.0-13.1) SEC INR (0.9-1.1) Sodium (135-145) mmol/L Potassium (3.3-5.1) mmol/L Chloride (96-108) mmol/L Carbon Dioxide (22-29) mmol/L Anion Gap (12-20) BUN (9-16) mg/dL Creatinine (0.5-1.4) mg/dL Estim Creat Clear Calc Estimated GFR Random Glucose (60-115) mg/dL Lactic Acid 1.0 (0.5-2.0) mmol/L Calcium (8.4-10.2) mg/dL Magnesium (1.6-2.6) mg/dL Total Bilirubin (0.0-1.0) mg/dL Direct Bilirubin (0.0-0.5) mg/dL AST (5-31) U/L ALT (0-31) U/L Alkaline Phosphatase (39-117) U/L Troponin I High Sens (<3.5-17.0) ng/L C-Reactive Protein (< or = 0.50) mg/dL Total Protein (6.5-8.0) g/dL Albumin (3.5-5.0) g/dL COVID-19 (ROSA) Negative (Negative) COVID-19 Clin Com See Note <Jasmyne Levy NP - Last Filed: 01/17/22 18:22> Lab Results 01/17/22 01/17/22 01/17/22 Range/Units 13:25 13:25 13:25 WBC 24.0 H (4.8-10.8) X10*3/uL RBC 3.16 L (4.20-5.50) X10*6/uL Hgb 8.1 L D (12.0-16.0) g/dl Hct 26.4 L D (37.0-47.0) % MCV 83.5 (80.0-98.0) fL MCH 25.6 L (27.0-33.0) pg MCHC 30.7 L (31.0-35.0) g/dl RDW 16.6 H (11.0-16.0) % Plt Count 845 H D (160-400) X10*3/uL MPV 7.4 L (9.4-12.3) fL Immature Gran % (Auto) 3.5 H (0.0-0.4) % Neut % (Auto) 83.9 H (45-73) % Lymph % (Auto) 6.6 L (20-40) % Pope % (Auto) 5.5 (2-11) % Eos % (Auto) 0.2 (0-4) % Baso % (Auto) 0.3 (0-2) % Lymph # (Auto) 1.6 (1.2-4.9) X10*3/uL Pope # (Auto) 1.3 H (0.1-1.2) X10*3/uL Eos # (Auto) 0.1 (0.0-0.4) X10*3/uL Baso # (Auto) 0.1 (0.0-0.2) X10*3/uL Abs Immat Gran (auto) 0.84 H (0.00-0.03) X10*3/uL Absolute Neuts (auto) 20.2 H (2.0-8.3) x10*3/uL Absolute Nucleated RBC 0.000 (0.0-0.012) X10*3/uL Nucleated RBC % (auto) 0.0 (0.0-0.2) /100WBC Smear Tech's Comments VERIFIED ESR 119 H (0-20) MM/HR PT (10.0-13.1) SEC INR (0.9-1.1) Sodium 135 (135-145) mmol/L Potassium 3.5 (3.3-5.1) mmol/L Chloride 93 L (96-108) mmol/L Carbon Dioxide 29 (22-29) mmol/L Anion Gap 17 (12-20) BUN 12 (9-16) mg/dL Creatinine 0.68 (0.5-1.4) mg/dL Estim Creat Clear Calc 67.2 Estimated GFR > 60 Random Glucose 103 (60-115) mg/dL Lactic Acid (0.5-2.0) mmol/L Calcium 8.9 (8.4-10.2) mg/dL Magnesium (1.6-2.6) mg/dL Total Bilirubin (0.0-1.0) mg/dL Direct Bilirubin (0.0-0.5) mg/dL AST (5-31) U/L ALT (0-31) U/L Alkaline Phosphatase (39-117) U/L Troponin I High Sens (<3.5-17.0) ng/L C-Reactive Protein 29.35 H (< or = 0.50) mg/dL Total Protein (6.5-8.0) g/dL Albumin (3.5-5.0) g/dL COVID-19 (ROSA) (Negative) COVID-19 Clin Com 01/17/22 01/17/22 01/17/22 Range/Units 14:31 14:31 14:31 WBC (4.8-10.8) X10*3/uL RBC (4.20-5.50) X10*6/uL Hgb (12.0-16.0) g/dl Hct (37.0-47.0) % MCV (80.0-98.0) fL MCH (27.0-33.0) pg MCHC (31.0-35.0) g/dl RDW (11.0-16.0) % Plt Count (160-400) X10*3/uL MPV (9.4-12.3) fL Immature Gran % (Auto) (0.0-0.4) % Neut % (Auto) (45-73) % Lymph % (Auto) (20-40) % Pope % (Auto) (2-11) % Eos % (Auto) (0-4) % Baso % (Auto) (0-2) % Lymph # (Auto) (1.2-4.9) X10*3/uL Pope # (Auto) (0.1-1.2) X10*3/uL Eos # (Auto) (0.0-0.4) X10*3/uL Baso # (Auto) (0.0-0.2) X10*3/uL Abs Immat Gran (auto) (0.00-0.03) X10*3/uL Absolute Neuts (auto) (2.0-8.3) x10*3/uL Absolute Nucleated RBC (0.0-0.012) X10*3/uL Nucleated RBC % (auto) (0.0-0.2) /100WBC Smear Tech's Comments ESR (0-20) MM/HR PT 14.3 H (10.0-13.1) SEC INR 1.2 H (0.9-1.1) Sodium (135-145) mmol/L Potassium (3.3-5.1) mmol/L Chloride (96-108) mmol/L Carbon Dioxide (22-29) mmol/L Anion Gap (12-20) BUN (9-16) mg/dL Creatinine (0.5-1.4) mg/dL Estim Creat Clear Calc Estimated GFR Random Glucose (60-115) mg/dL Lactic Acid (0.5-2.0) mmol/L Calcium (8.4-10.2) mg/dL Magnesium 2.1 (1.6-2.6) mg/dL Total Bilirubin 0.6 (0.0-1.0) mg/dL Direct Bilirubin 0.4 (0.0-0.5) mg/dL AST 36 H D (5-31) U/L ALT 53 H (0-31) U/L Alkaline Phosphatase 237 H D (39-117) U/L Troponin I High Sens 10.0 (<3.5-17.0) ng/L C-Reactive Protein (< or = 0.50) mg/dL Total Protein 7.9 (6.5-8.0) g/dL Albumin 3.4 L (3.5-5.0) g/dL COVID-19 (ROSA) (Negative) COVID-19 Clin Com 01/17/22 01/17/22 Range/Units 14:31 17:03 WBC (4.8-10.8) X10*3/uL RBC (4.20-5.50) X10*6/uL Hgb (12.0-16.0) g/dl Hct (37.0-47.0) % MCV (80.0-98.0) fL MCH (27.0-33.0) pg MCHC (31.0-35.0) g/dl RDW (11.0-16.0) % Plt Count (160-400) X10*3/uL MPV (9.4-12.3) fL Immature Gran % (Auto) (0.0-0.4) % Neut % (Auto) (45-73) % Lymph % (Auto) (20-40) % Pope % (Auto) (2-11) % Eos % (Auto) (0-4) % Baso % (Auto) (0-2) % Lymph # (Auto) (1.2-4.9) X10*3/uL Pope # (Auto) (0.1-1.2) X10*3/uL Eos # (Auto) (0.0-0.4) X10*3/uL Baso # (Auto) (0.0-0.2) X10*3/uL Abs Immat Gran (auto) (0.00-0.03) X10*3/uL Absolute Neuts (auto) (2.0-8.3) x10*3/uL Absolute Nucleated RBC (0.0-0.012) X10*3/uL Nucleated RBC % (auto) (0.0-0.2) /100WBC Smear Tech's Comments ESR (0-20) MM/HR PT (10.0-13.1) SEC INR (0.9-1.1) Sodium (135-145) mmol/L Potassium (3.3-5.1) mmol/L Chloride (96-108) mmol/L Carbon Dioxide (22-29) mmol/L Anion Gap (12-20) BUN (9-16) mg/dL Creatinine (0.5-1.4) mg/dL Estim Creat Clear Calc Estimated GFR Random Glucose (60-115) mg/dL Lactic Acid 1.0 (0.5-2.0) mmol/L Calcium (8.4-10.2) mg/dL Magnesium (1.6-2.6) mg/dL Total Bilirubin (0.0-1.0) mg/dL Direct Bilirubin (0.0-0.5) mg/dL AST (5-31) U/L ALT (0-31) U/L Alkaline Phosphatase (39-117) U/L Troponin I High Sens (<3.5-17.0) ng/L C-Reactive Protein (< or = 0.50) mg/dL Total Protein (6.5-8.0) g/dL Albumin (3.5-5.0) g/dL COVID-19 (ROSA) Negative (Negative) COVID-19 Clin Com See Note <JANY Amador - Last Filed: 01/18/22 08:54> Imaging Data Chest x-ray: Attestation: I personally reviewed and interpreted this imaging study as follows: <Jasmyne Levy NP - Last Filed: 01/17/22 18:22> Radiologist's impression: [address] [address] XRay Report Signed Patient: Tatum Thornton MR#: [id number] : 1955 Acct:[id number] Age/Sex: 66 / F ADM Date: 01/17/22 Loc: .ED Attending Dr: Ordering Physician: Jasmyne Levy NP Date of Service: 01/17/22 Procedure(s): XR chest 2V Accession Number(s): [id number] cc: Jasmyne Levy NP~ EXAMINATION: XR CHEST CLINICAL INFORMATION: Fever and rib pain COMPARISON: None TECHNIQUE: 2 views of the chest were obtained. FINDINGS: The lungs are well-expanded with bandlike atelectasis left lower lobe and lingula. Rest of the liver are clear. The heart size and pulmonary vascularity is normal. No gross bony abnormality seen. XR/XR chest 2V IMPRESSION: Bandlike atelectasis left lower lobe and lingula. <Jasmyne Levy NP - Last Filed: 01/17/22 18:22> CT scan - abdomen: Attestation: I personally reviewed and interpreted this imaging study as follows: <Jasmyne Levy NP - Last Filed: 01/17/22 18:22> Radiologist's impression: FINDINGS: LUNG BASES: There is increased soft tissue adjacent to the lower thoracic spine. There is a central low-attenuation area in the abnormal soft tissue measuring approximately 1 cm questionable for abscess. There is increasing destruction of the inferior endplate of the T8-T9 vertebral body and T9-T10 disc space. Findings are concerning for discitis and osteomyelitis. There is a tiny left pleural effusion. There is increasing left lower lobe atelectasis. LIVER, GALLBLADDER, AND BILIARY TREE: The liver is normal in size, shape, and attenuation. No focal hepatic lesion or biliary ductal dilatation is present. The gallbladder is unremarkable with no evidence of radiopaque gallstones, gallbladder wall thickening, or obvious pericholecystic inflammatory changes.? PANCREAS: Unremarkable.? SPLEEN: Unremarkable.? ADRENAL GLANDS: Unremarkable.? KIDNEYS AND URETERS: Small bilateral renal cysts. No imaging follow-up. These are otherwise unremarkable. BLADDER: Unremarkable.? GASTROINTESTINAL TRACT: The small and large bowel are unremarkable. The appendix is is not seen. The stomach is unremarkable. ABDOMINAL WALL: No significant hernia is appreciated. There is a new heterogeneous of fluid collection seen in the right psoas muscle. This measures 4.4 x 3.2 x 6.3 cm in transverse AP and longitudinal dimension. This has a dependent high attenuation questionable for hemorrhage. LYMPH NODES: Small retroperitoneal lymph nodes. No enlarged lymph nodes. VASCULAR: Atherosclerotic disease. No aneurysm. PELVIC VISCERA: There is low-attenuation seen centrally in the uterus questionable for endometrial fluid or thickening. This measures 1.4 cm which is abnormally thickened for a postmenopausal patient. Small uterine calcifications probably representing fibroids. Prominent pelvic vessels, left greater than right questionable for pelvic congestion. Otherwise unremarkable adnexa.? OSSEOUS STRUCTURES: Postsurgical changes following anterior fusion hardware at L5-S1 and posterior fusion hardware from L4 to S1 and disc interspacers at L4-L5 and L5-S1. There is increasing bone loss of the inferior endplate of the T9 vertebral body at the T10 disc space questionable for discitis and osteomyelitis. CT/CT abdomen pelvis w IV con IMPRESSION: Increasing paraspinal soft tissue and question small right paraspinal abscess adjacent to the lower thoracic spine. Increasing bone loss of the inferior endplate of the T9 vertebral body and T9-T10 disc space suggestive of discitis and osteomyelitis. New fluid collection in the right psoas muscle. This has dependent high attenuation and appearance is questionable for a liquefying hematoma or abscess. ? <Jasmyne Levy NP - Last Filed: 01/17/22 18:22> Critical Care Time Critical Care Time Critical Care Time: Yes <Jasmyne Levy NP - Last Filed: 01/17/22 18:22> Total Critical Care Time: 45 <Jasmyne Levy NP - Last Filed: 01/17/22 18:22> Attestation: Review of medical records, review of records from patient's primary care, discussion with medicine. Discussed her with transfer line with acceptance to tertiary care center for further evaluation. <Jasmyne Levy NP - Last Filed: 01/17/22 18:22> Discharge Plan Discharge Clinical Impression: Osteomyelitis, Abscess of paraspinal muscles, Psoas muscle abscess, Leukocytosis, Anemia, Thrombocytosis <Dale Brady MD - Last Filed: 01/17/22 13:19> Patient Disposition: [facility] <Dale Brady MD - Last Filed: 01/17/22 13:19> Transfer Details: [facility] <Dale Brady MD - Last Filed: 01/17/22 13:19> [facility] <Jasmyne Levy NP - Last Filed: 01/17/22 18:22> [facility] <JANY Amador - Last Filed: 01/18/22 08:54> Prescriptions: No Action levothyroxine 50 mcg Capsule 50 mcg PO DAILY@0630 gabapentin 600 mg Tablet 600 mg PO DAILY@1700 omeprazole 40 mg capsule,delayed release(DR/EC) 40 mg PO DAILY@0630 PRN (Reason: Heartburn) ibuprofen 200 mg Tablet 400 mg PO Q6H PRN (Reason: Pain) cyclobenzaprine 5 mg Tablet 5 mg PO TID PRN (Reason: Pain) <Dale Brady MD - Last Filed: 01/17/22 13:19> Interventions: Acute Care Transfer Worksheet (ED) Last Done: 01/17/22 19:45 <Dale Brady MD - Last Filed: 01/17/22 13:19> Discharge Date/Time: 01/17/22 19:46 <Dale Brady MD - Last Filed: 01/17/22 13:19>
[2022-01-17 13:32] LABS: Basophils Absolute Auto 0.1 X10*3/uL (0.0-0.2); Basophils Percent Auto 0.3 % (0-2); Eosinophils Absolute Auto 0.1 X10*3/uL (0.0-0.4); Eosinophils Percent Auto 0.2 % (0-4); Hematocrit 26.4 % (37.0-47.0); Hemoglobin 8.1 g/dl (12.0-16.0); Imm Gran Abs Auto 0.84 X10*3/uL (0.00-0.03); Imm Gran Pct Auto 3.5 % (0.0-0.4); Lymphocytes Absolute Auto 1.6 X10*3/uL (1.2-4.9); Lymphocytes Percent Auto 6.6 % (20-40); MANUAL DIFF FLAG SCAN; Mean Corpuscular HGB Conc 30.7 g/dl (31.0-35.0); Mean Corpuscular Hemoglobin 25.6 pg (27.0-33.0); Mean Corpuscular Volume 83.5 fL (80.0-98.0); Mean Platelet Volume 7.4 fL (9.4-12.3); Monocytes Absolute Auto 1.3 X10*3/uL (0.1-1.2); Monocytes Percent Auto 5.5 % (2-11); Neutrophils Absolute Auto 20.2 x10*3/uL (2.0-8.3); Neutrophils Percent Auto 83.9 % (45-73); Platelet Count 845 X10*3/uL (160-400); Red Blood Count 3.16 X10*6/uL (4.20-5.50); Red Cell Distribution Width 16.6 % (11.0-16.0); SCAN SMEAR FLAG 1
--- OUTSIDE RECORDS SUMMARY | 2022-01-17 13:37 | XMS_ITS | Continuity of Care Document ---
:1955 Author Organization [facility] Address [address] [place] [address]- Care Team Providers Name Role Phone Not on Staff, PCP Primary Care Physician Unavailable Encounter [facility] [place] Date(s): 10/28/21 - 11/27/21 [facility] [address] [place] [address]- Allergies, Adverse Reactions, Alerts Substance Reaction Severity Status morphine Active sulfa drugs Active Medications baclofen 10 mg oral tablet 10 mg, 1, tablet, By Mouth, 3 times a day, PRN, # 270 tablet, Refills 0, Maintenance, Pain , Moderate, 11/02/21 12:35:00 EDT, Partial fill upon patient request if the prescription is for a schedule II opioid drug. Start Date: 11/02/21 Status: Orderedgabapentin 600 mg oral tablet 1 tablet = 600 mg, By Mouth, 2 times a day, PRN Pain , Mild, 0 Refills, Maintenance, 11/02/21 12:34:00 EDT, Partial fill upon patient request if the prescription is for a schedule II opioid drug. Start Date: 11/02/21 Status: Orderedlevothyroxine 0.025 mg oral tablet 1 tablet = 25 mcg, By Mouth, Daily, # 30 tablet, 0 Refills, Maintenance, 11/02/21 12:35:00 EDT, Tablet, Partial fill upon patient request if the prescription is for a schedule II opioid drug. Start Date: 11/02/21 Status: Ordered Patient Care team information PersonnelName: Not on Staff, PCP
--- OUTSIDE RECORDS SUMMARY | 2022-01-17 13:38 | XMS_ITS | Continuity of Care Document ---
:1955 Author Organization [facility] Address [address] [place] [address]- Care Team Providers Name Role Phone Not on Staff, PCP Primary Care Physician Unavailable Encounter [facility] [place] Date(s): 11/07/21 - 12/07/21 [facility] [address] [place] [address]- Allergies, Adverse Reactions, Alerts Substance Reaction Severity [...]
--- OUTSIDE RECORDS SUMMARY | 2022-01-17 13:38 | XMS_ITS | Continuity of Care Document ---
:1955 Author Organization [facility] Address [address] [place] [address]- Care Team Providers Name Role Phone Not on Staff, PCP Primary Care Physician Unavailable Encounter [facility] [id number] Date(s): 11/25/21 - 12/25/21 [facility] [address] [place] [place], [place] [address] Allergies, Adverse Reactions, Alerts Substance Reaction Severity [...]
--- OUTSIDE RECORDS SUMMARY | 2022-01-17 13:38 | XMS_ITS | Continuity of Care Document ---
:1955 Author Organization [facility] Address [address] [place] [address]- Care Team Providers Name Role Phone Not on Staff, PCP Primary Care Physician Unavailable Encounter [facility] [place] Date(s): 11/02/21 - 11/02/[address] [address] Discharge Disposition: A-D/C Home Attending Physician: Boris Estevez MD Admitting Physician: Boris Estevez MD Referring Physician: Boris Estevez MD Allergies, Adverse Reactions, Alerts Substance Reaction Severity [...] opioid drug. Start Date: 11/02/21 Status: Ordered Vital Signs Most recent to oldest [Reference Range]: 1 2 Height 160 cm (11/02/21 11:01 AM) Weight 63.5 kg (11/02/21 11:01 AM) Oxygen Saturation [94-100 %] 98 % 100 % (11/02/21 2:16 PM) (11/02/21: AM) Pulse Rate [55-90 bpm] 74 bpm (11/02/21 11:01 AM) Body Mass Index [18.5-24.99] 24.8 (11/02/21 11:01 AM) Blood Pressure [90-138/55-84 mm Hg] 134/67 mm Hg 111/ 66 mm Hg (11/02/21 2:16 PM) (11/02/21 11:01 AM) Respiratory Rate [16-30 br/min] 13 br/min 19 br/mi n *L* (11/02/21 11:01 AM) (11/02/21 2:16 PM) Temperature [96.8-100.4 DegF] 97.4 DegF 97.9 DegF (11/02/21 2:16 PM) (11/02/21 11:01 AM) Liters per Minute 0 L/min (11/02/21: AM) Mode of Delivery (Oxygen) Room air Room air (11/02/21 2:16 PM) (11/02/21 11:01 AM) Blood pressure sites Arm, right (11/02/21 11:01 AM) Temperature Route Temporal Temporal (11/02/21 2:16 PM) (11/02/21 11:01 AM) Dry Weight 63.5 kg (11/02/21 11:01 AM) Weight Obtained Via Standing scale (11/02/21 11:01 AM) Dry Weight Obtained Via Standing scale (11/02/21 11:01 AM) Care Team PersonnelName: Not on Staff, PCP
[2022-01-17 13:47] LABS: Anion Gap 17 (12-20); Blood Urea Nitrogen 12 mg/dL (9-16); Calcium 8.9 mg/dL (8.4-10.2); Carbon Dioxide 29 mmol/L (22-29); Chloride 93 mmol/L (96-108); Creatinine Clr Calc Pharmacy 67.2; Estimated Glomerular Filt Rate > 60; Glucose Random 103 mg/dL (60-115); Potassium 3.5 mmol/L (3.3-5.1); Sodium 135 mmol/L (135-145)
[2022-01-17 13:49] LABS: SLIDE REVIEW VERIFIED
--- NOTE | 2022-01-17 14:07 | ECG_ITS ---
Test Reason : weakness Blood Pressure : / mmHG Vent. Rate : 111 BPM Atrial Rate : 111 BPM P-R Int : 174 ms QRS Dur : 084 ms QT Int : 338 ms P-R-T Axes : 054 016 007 degrees QTc Int : 459 ms Sinus tachycardia Otherwise normal ECG When compared with ECG of 13-NOV-2021 16:00, Heart rate has increased Referred By: Jasmyne Levy Electronically Signed By:CANDIDO LÓPEZ MD
[2022-01-17 14:43] LABS: INTERNATIONAL NORM RATIO 1.2 (0.9-1.1); Prothrombin Time 14.3 SEC (10.0-13.1)
[2022-01-17] MEDS: iohexoL 350 MG/ML 100 ML INFUS..BTL IV (14:45)
[2022-01-17] MEDS: Ketorolac Tromethamine 30 MG/ML VIAL IVPUSH (14:50)
[2022-01-17] MEDS: 0.9 % Sodium Chloride 1,000 ML 999 ML IV (14:50)
[2022-01-17] MEDS: cefTRIAXone sodium 1 GM in 0.9 % Sodium Chloride 50 ML IV (14:51)
--- NOTE | 2022-01-17 14:54 | PC.NURSE ---
medicated as ordered, skin wpd, ct's complete, aware of care plan
[2022-01-17 15:08] LABS: Alanine Aminotransferase 53 U/L (0-31); Albumin Level 3.4 g/dL (3.5-5.0); Alkaline Phosphatase 237 U/L (39-117); Aspartate Amino Transferase 36 U/L (5-31); Bilirubin Direct 0.4 mg/dL (0.0-0.5); Bilirubin Total 0.6 mg/dL (0.0-1.0); Magnesium 2.1 mg/dL (1.6-2.6); Total Protein 7.9 g/dL (6.5-8.0)
--- NOTE | 2022-01-17 15:09 | PHA.MEDREC ---
Pharmacy Consult ? Medication Reconciliation Pharmacy has completed the medication reconciliation. Reviewed medications with patient. She is a good historian and knows which medications she is taking. States she was supposed to be on vitamin d once weekly and calcium once daily but has not taken those in over a month but otherwise she says she takes her levothyroxine daily and other medications prn.
[2022-01-17 15:17] VITALS: BP 152/72; PULSE 112; RESP 18; TEMP 37.2; O2SAT 96
[2022-01-17] MEDS: vancomycin HCL 1,500 MG in 0.9 % Sodium Chloride 500 ML 333.33 MG IV (15:43)
[2022-01-17 16:18] LABS: C Reactive Protein 29.35 mg/dL (< or = 0.50)
[2022-01-17 16:56] LABS: Erythrocyte Sedimentation Rate 119 MM/HR (0-20)
--- NOTE | 2022-01-17 17:18 | PC.NURSE ---
1625 call placed to [facility] for tx-declined 1649 call placed to [facility] for tx-declined 1652 call placed to for tx-call given to Jasmyne Levy 1715 pt [address] to ED Dr. Canchola
[2022-01-17 17:25] LABS: COVID-19 Test Negative (Negative); IDNOW Serial# BCCEAD1C
[2022-01-17 19:15] VITALS: BP 168/77; PULSE 115; RESP 18; TEMP 37.3; O2SAT 96
--- NOTE | 2022-01-17 19:42 | PC.NURSE ---
nurse to nurse report called to [facility]
== END 2022-01-17 19:46 | disposition short-term general hospital (02) ==
PROVIDERS: Nurse Practitioner Family; Emergency Provider Emergency Medicine
DX: G06.1 Intraspinal abscess and granuloma (principal); M86.9 Osteomyelitis, unspecified; M54.50 Low back pain, unspecified; D64.9 Anemia, unspecified; D72.829 Elevated white blood cell count, unspecified; D75.839 Thrombocytosis, unspecified; Z20.822 Contact with and (suspected) exposure to COVID-19; Z79.899 Other long term (current) drug therapy
CPT/HCPCS: 36415; 71046; 74177; 80048; 80076; 83605; 83735; 84484; 85025; 85610; 85652; 86140; 87040; 87077; 87186; 87205; 87635; 93005; 96361; 96374; 96375; 99285; J0696; J1885; J3370; Q9967

== ENCOUNTER 2022-03-02 11:37 | Outpatient (REF) | payer OTHER, SELFPAY ==
[2022-03-02 12:32] LABS: Alanine Aminotransferase 20 U/L (0-31); Alkaline Phosphatase 143 U/L (39-117); Anion Gap 16 (12-20); Aspartate Amino Transferase 23 U/L (5-31); Bilirubin Total 0.4 mg/dL (0.0-1.0); Blood Urea Nitrogen 18 mg/dL (9-16); C Reactive Protein 6.18 mg/dL (< or = 0.50); Calcium 9.5 mg/dL (8.4-10.2); Carbon Dioxide 23 mmol/L (22-29); Chloride 105 mmol/L (96-108); Estimated Glomerular Filt Rate > 60; Glucose Random 92 mg/dL (60-115); Potassium 4.5 mmol/L (3.3-5.1); Sodium 139 mmol/L (135-145); Total Protein 8.1 g/dL (6.5-8.0)
== END 2022-03-02 11:38 | disposition home or self-care (01) ==
LOC: HO.LNP 11:37
PROVIDERS: Visit Provider Hospitalist
DX: R78.81 Bacteremia (principal)
CPT/HCPCS: 80053; 80202; 86140